=== PATIENT | female | born 1970 | race Caucasian/White ===

== ENCOUNTER 2024-07-14 09:41 | Inpatient (IN) | payer BC, SELFPAY ==
[2024-07-14] VITALS (23 sets, daily range): BP systolic 120–183; BP diastolic 50–116; PULSE 85–116; RESP 20–30; TEMP 36.2–36.6; O2SAT 82–100; BMI 27.9; BMI 29.5
--- NOTE | 2024-07-14 09:50 | PC.NURSE ---
aware of vbg results
--- NOTE | 2024-07-14 09:52 | PC.NURSE ---
I notified Natalie augustin that i sent up a green top for a VBG
[2024-07-14 09:58] LABS: Lactate Venous 1.2 mmol/L (0.4-2.0); VBG Base Excess 8.1 mmol/L (-2.4-2.3); VBG HCO3 34.8 mmol/L (23-30); VBG Oxygen Saturation 72.1 % (50-70); VBG PH 7.28 mmol/L (7.31-7.41); VBG PO2 39.2 mmol/L (28-40); VBG Total CO2 37.1 mmol/L (23-27)
--- NOTE | 2024-07-14 09:58 | ECG_ITS ---
APPROVED REPORT Exam: Resting ECG HR:88 bpm ECG Measurements Heart Rate 88 AXES MO 148 P 86 QRSd 64 QRS 86 QT 342 T 76 QTc 388 Conclusion SINUS RHYTHM LOW QRS VOLTAGE IN PRECORDIAL LEADS [QRS DEFLECTION < 1.0 mV IN CHEST LEADS] BORDERLINE ECG UNCONFIRMED REPORT Electronically signed by : Shaun Montoya, 07/14/2024 15:12:40
--- NOTE | 2024-07-14 10:00 | PC.NURSE ---
per MD no needs to treat patient for sepsis
[2024-07-14 10:03] LABS: VBG PCO2 75.3 mmol/L (35-51)
--- NOTE | 2024-07-14 10:50 | PC.NURSE ---
rounded on patient. states she doesnt need anything
--- NOTE | 2024-07-14 11:03 | XR_ITS ---
PROCEDURE INFORMATION: Exam: XR Chest Exam date and time: 07/14/2024 11:25 AM Age: 53 years old Clinical indication: Dyspnea TECHNIQUE: Imaging protocol: Radiologic exam of the chest. Views: 1 view. COMPARISON: No relevant prior studies available. FINDINGS: Lungs: No evidence of pneumonia or interstitial edema. Pleural spaces: Mild bilateral pleural thickening/small effusions. Heart/Mediastinum: Unremarkable. No cardiomegaly. Bones/joints: Unremarkable. IMPRESSION: 1. No evidence of pneumonia or interstitial edema. 2. Mild bilateral pleural thickening/small effusions.
--- NOTE | 2024-07-14 11:04 | HMH.EDGENADL ---
Discharge Plan Disposition Chief Complaint: Shortness of Breath/Dyspnea Referrals Follow up/Referrals: Precious Hernandez [Primary Care Provider] - See instructions Clinical Impressions Clinical Impression: Acute exacerbation of chronic obstructive airways disease, Acute respiratory failure with hypoxia and hypercarbia Print Language Print Language: Russian Discharge ED Provider: Vannesa Montoya General Adult HPI General Chief complaint: Shortness of Breath/Dyspnea Stated complaint: soa Time Seen by Provider: 07/14/24 10:52 Mode of Arrival: EMS Source of Information: Patient and EMS Limitations: No Limitations Description of Symptoms (Recalled from ER Triage Doc. by RN): pt c/o increasing SOA with very decreased oxygen sats during exertion. pt c/o chest congestion and wheezing. pt has COPD and is on 4LNC at baseline. on arrival pt was 82% on 4LNC @ 0938. pt placed on 10L NR and increased to 95% @0941. pt taken off the NR at 0952 when she was 100% and placed on 6LNC and is maintaining 99%. pt states she has been sick since Monday. pt had 1 duo neb in route that she reports helped minimally. pt denies chest pain, abd pain, any other symptoms. History of Present Illness HPI narrative: Patient is a 53-year-old with a known history of COPD who wears 4 L nasal cannula presents today with increasing shortness of breath tightness wheezing and stating that she cannot do anything without getting severely dyspneic. She states that her oxygen saturations have gotten down into the 70s but are primarily been in the 80s on her 4 L she has been placed herself on 6 L at home. She states she has been trying everything with breathing treatments at home and has not been able to manage her symptoms there. She has been on BiPAP in the hospital before came here today for further management. Denies any fevers or chills body aches etc. Related Data Allergies Allergy/AdvReac Type Severity Reaction Status Date / Time No Known Allergies Allergy Verified 07/14/24 10:02 [facility] Disclaimer: The information contained in this section may have been updated after the patient was seen, as this information can be updated by other users. Social History Smoking Status: Light tobacco smoker alcohol intake: never current occupational status: other Travel in the last 8 weeks: None ROS Obtained: Yes All systems reviewed & no additional complaints except as documented Physical Exam General General appearance: in distress (Sitting forward personally breathing respiratory distress accessory muscle use oxygen saturations in the mid 90s on 6 L nasal cannula) Respiratory Respiratory exam: Present other (As above but with prolonged expiratory phase significant wheezing and tightness in mild distress) Cardiovascular Cardiovascular exam: Present regular rate and normal rhythm Neurological Exam Neurological exam: Present alert Medical Decision Making Medical Records Screening: Per USPSTF and CDC recommendations, given the prevalence of disease in our region, it is our hospital?s policy to screen for HIV and viral Hepatitis for all patients aged 18 and over and those with ongoing risk factors. Misael Inquiry Pt receiving controlled substance: No Vital Signs: 07/14/24 09:39 07/14/24 09:41 07/14/24 09:52 Temperature 97.9 F Temperature Source Oral Pulse Rate Pulse Rate [Left] 106 H Respiratory Rate 30 H 29 H Blood Pressure Blood Pressure [Right Arm] 149/77 H Blood Pressure Mean [Right Arm] 101 Blood Pressure Source [Right Arm] Automatic Cuff Blood Pressure Position [Right Arm] Sitting 02 Sat by Pulse Oximetry 82 L 95 100 Oxygen Delivery Method Nasal Cannula Non-Rebreather Non-Rebreather Oxygen Flow Rate (LPM) 4 10 9 07/14/24 09:55 07/14/24 10:00 07/14/24 10:30 Temperature Temperature Source Pulse Rate 116 H 98 H Pulse Rate [Left] Respiratory Rate 29 H 25 H Blood Pressure 151/79 H 124/73 Blood Pressure [Right Arm] Blood Pressure Mean [Right Arm] Blood Pressure Source [Right Arm] Blood Pressure Position [Right Arm] 02 Sat by Pulse Oximetry 98 95 97 Oxygen Delivery Method Nasal Cannula Nasal Cannula Nasal Cannula Oxygen Flow Rate (LPM) 6 6 07/14/24 10:45 07/14/24 11:00 Temperature Temperature Source Pulse Rate 95 H 100 H Pulse Rate [Left] Respiratory Rate 25 H 30 H Blood Pressure 183/116 H Blood Pressure [Right Arm] Blood Pressure Mean [Right Arm] Blood Pressure Source [Right Arm] Blood Pressure Position [Right Arm] 02 Sat by Pulse Oximetry 99 97 Oxygen Delivery Method Nasal Cannula Room Air Oxygen Flow Rate (LPM) 6 6 Lab Data Lab results reviewed: Yes I reviewed the patient's lab results. Lab Results 07/14/24 09:48: WBC 15.2 H, RBC 4.26, Hgb 12.8, Hct 39.1, MCV 91.8, MCH 30.0, MCHC 32.7, RDW 12.4, Plt Count 474 H, MPV 8.9, Neut % (Auto) 72.7, Lymph % (Auto) 16.7, [place] % (Auto) 6.8, Eos % (Auto) 2.8, Baso % (Auto) 0.7, Neut # (Auto) 11.1 H, Lymph # (Auto) 2.6, [place] # (Auto) 1.0, Eos # (Auto) 0.4, Baso # (Auto) 0.1, Sodium 136, Potassium 3.5, Chloride 91 L, Carbon Dioxide > 40 H*, Anion Gap 8.5, BUN 11, Creatinine 0.60, Estimated Creat Clear 130, Estimated GFR 105, Est GFR ( Amer) 127, Glucose 104 H, Calcium 9.0, Total Bilirubin 0.6, AST 46 H, ALT 31, Alkaline Phosphatase 71, Total Protein 7.3, Albumin 4.3, Globulin 3.0, Albumin/Globulin Ratio 1.4, HCV Ab BRUCE w/Rflx PCR Qn Negative, HIV Ag/Ab Combo Qual Negative 07/14/24 09:52: VBG pH 7.28 L, VBG pCO2 75.3 H, VBG pO2 39.2, VBG HCO3 34.8 H, VBG Total CO2 37.1 H, VBG O2 Saturation 72.1 H, VBG Base Excess 8.1 H, VBG Lactic Acid 1.2 07/14/24 09:48 07/14/24 09:48 Orders (Tests/Meds): ED MEDICATIONS Generic Name Dose Route Start Last Admin Trade Name Freq PRN Reason Stop Dose Admin Sodium Chloride 500 mls @ 999 mls/hr 07/14/24 11:02 07/14/24 11:17 Sod Chlor 0.9% 1000ml Bag IV 07/14/24 11:32 999 mls/hr .Q31M ONE Administration Magnesium Sulfate 2 gm in 50 mls @ 50 mls/hr 07/14/24 11:02 07/14/24 11:17 Magnesium Sulfate 2gm/50ml Premix IV 07/14/24 12:01 50 mls/hr ONCE ONE Administration Ceftriaxone Sodium 1 gm/ 50 mls @ 100 mls/hr 07/14/24 11:02 Sodium Chloride IV 07/14/24 11:31 ONCE ONE Sodium Chloride 10 ml 07/14/24 11:18 Sodium Chloride 0.9% 10ml Vial IV 08/13/24 11:17 NEEDED PRN to Dilute Lorazepam inj Discontinued Medications Generic Name Dose Route Start Last Admin Trade Name Yamilq PRN Reason Stop Dose Admin Albuterol/Ipratropium 3 ml 07/14/24 11:02 07/14/24 11:17 Ipratropium/Albuterol 3 Ml Neb IH 07/14/24 11:03 3 ml ONCE ONE Administration Azithromycin 500 mg/ Sodium 250 mls @ 250 mls/hr 07/14/24 11:02 Chloride IV 07/14/24 11:03 ONCE ONE Lorazepam 0.5 mg 07/14/24 11:18 07/14/24 11:24 Lorazepam 2mg/Ml Vial IV 07/14/24 11:19 0.5 mg ONCE ONE Administration Methylprednisolone Sodium Succinate 125 mg 07/14/24 11:02 07/14/24 11:17 Methylprednisolone Sod Succ 125mg Vial IV 07/14/24 11:03 125 mg ONCE ONE Administration ORDERS Category Date Time Status CXR --portable [XR chest portable] Stat Exams 07/14/24 11:03 Taken BNP [NT Pro Brain Natriuretic Pep.] Stat Lab 07/14/24 09:48 Results CBC w/Auto Diff [Complete Blood Count Auto Diff] Stat Lab 07/14/24 09:48 Received CMP [Comprehensive Metabolic Panel] Stat Lab 07/14/24 09:48 Results HIV Combo Stat Lab 07/14/24 09:48 Completed Hepatitis C Ab Qual. W/ RFX Stat Lab 07/14/24 09:48 Received Rapid PCR Covid and Flu A/B Stat Lab 07/14/24 11:03 Ordered Trop I [Troponin I] Stat Lab 07/14/24 09:48 Results Troponin I Q3H Lab 07/14/24 14:15 Ordered Troponin I Q3H Lab 07/14/24 17:15 Ordered Venous Blood Gas Routine RT 07/14/24 09:52 Completed Medical Decision Narrative: 53-year-old with moderate to severe COPD exacerbation with hypoxic and hypercapnic respiratory failure blood gas was already returned by the time I evaluated this patient. She is acutely hypercarbic pH is less than 7.3. Will place her on BiPAP. Nebs steroids antibiotics magnesium have been administered. Will reassess shortly. Given the severity her symptoms and her inability to manage this at home she will likely need to be admitted until she has a turnaround significantly. Will reassess within an hour. Reassessment 1129 patient started on BiPAP chest x-ray performed which I personally interpreted which shows no evidence of any acute cardiopulmonary emergency specifically no focal consolidation or pneumothorax. Neb steroids antibiotics magnesium have been initiated. Labs are pending but I spoke with hospital medicine who agreed to admit the patient for further evaluation and management. Critical Care Critical Care Time Critical Care Time: Yes Attestation: On 07/14/24, the high probability of a clinically significant, sudden or life threatening deterioration of the following system(s) required my full and direct attention, intervention and personal management. The time I documented below is in addition to time spent performing reported procedures but includes the following listed in this critical care notation. Total Time Total Critical Care Time: 35
--- NOTE | 2024-07-14 11:13 | PC.NURSE ---
pt refusing nasal swab due to nasal sores.
[2024-07-14 11:17] LABS: HIV Combo NEGATIVE (Negative)
[2024-07-14] MEDS: 0.9 % SODIUM CHLORIDE 1000ML 500 ML 999 ML IV (11:17)
[2024-07-14] MEDS: MAGNESIUM SULFATE IN WATER 2 GM/50 ML PIGGYBACK IV (11:17)
[2024-07-14] MEDS: METHYLPREDNISOLONE SOD SUCC 125MG VIAL 125 MG IV (11:17)
[2024-07-14] MEDS: IPRATROPIUM/ALBUTEROL 3 ML NEB IH ×3 (11:17→21:54)
[2024-07-14 11:19] LABS: Basophils # 0.1 K/mm3 (0-0.2); Basophils % 0.7 % (0.1-2.0); Eosinophils # 0.4 K/mm3 (0.0-0.4); Eosinophils % 2.8 % (0.1-12.0); Hematocrit 39.1 % (37.0-47.0); Hemoglobin 12.8 g/dL (12.2-16.2); Lymphocytes # 2.6 K/mm3 (0.7-4.5); Lymphocytes % 16.7 % (10-50); Mean Corpuscular HGB Conc 32.7 g/dL (31.8-35.4); Mean Corpuscular Volume 91.8 fl (81-99); Mean Platelet Volume 8.9 fl (7.4-10.4); Monocytes % 6.8 % (1.7-9.3); Neutrophils # 11.1 K/mm3 (1.8-7.8); Neutrophils % 72.7 % (37.0-80.0); Platelet Count 474 K/mm3 (142-424); Red Blood Count 4.26 M/mm3 (4.20-5.40); Red Cell Distribution Width 12.4 % (11.5-17.5); White Blood Count 15.2 K/mm3 (4.8-10.8)
[2024-07-14 11:20] LABS: Albumin Level 4.3 g/dl (3.5-5.0); Chloride 91 mmol/L (98-107); Potassium 3.5 mmoL/L (3.5-5.1); Sodium 136 mmol/L (136-145)
[2024-07-14 11:23] LABS: Alanine Aminotransferase 31 U/L (12-78); Albumin/Globulin Ratio 1.4 (1.1-1.8); Alkaline Phosphatase 71 U/L (38-126); Aspartate Amino Transferase 46 U/L (14-36); Bilirubin,Total 0.6 mg/dl (0.2-1.3); Blood Urea Nitrogen 11 mg/dl (7-17); Creatinine Clearance Estimated 130 mL/min (50-200); Estimated Glomerular Filt Rate 105 ml/min (>60); GFR (African American) 127 ML/MIN (>60); Total Protein,Serum 7.3 g/dl (6.3-8.2)
[2024-07-14 11:24] LABS: Glucose 104 mg/dl (74-100); MANUAL DIFFERENTIAL MANUAL DIFFERENTIAL (MANUAL DIFF)
[2024-07-14] MEDS: LORazepam 2MG/ML VIAL 0.5 MG IV (11:24)
[2024-07-14 11:26] LABS: Hepatitis C Ab Qual. W/ RFX NEGATIVE (Negative)
[2024-07-14] MEDS: CEFTRIAXONE SODIUM 1 GM in 0.9 % SODIUM CHLORIDE 50 ML IV (11:32)
[2024-07-14 11:35] LABS: Carbon Dioxide 38 mmol/L (22.0-30.0)
[2024-07-14 11:36] LABS: Anion Gap 10.5 mEq/L (5-15); Troponin I < 0.01 ng/ml (0.00-0.034)
[2024-07-14] MEDS: AZITHROMYCIN 500 MG in 0.9 % SODIUM CHLORIDE 250 ML 250 MG IV (11:45)
--- NOTE | 2024-07-14 11:49 | PC.NURSE ---
I rounded on the pt. no new complaints at this time. pt is tolerating the BIPAP well. no needs voiced. call coleman in reach.
--- NOTE | 2024-07-14 12:35 | PC.NURSE ---
I called report to Sri SCHWAB
--- NOTE | 2024-07-14 13:34 | PC.NURSE ---
arrived by stretcher from ED
--- NOTE | 2024-07-14 13:39 | P.HP_ITS ---
History of Present Illness *Admission Date: 07/14/24 *Reason for visit:: Shortness of breath *History of present illness: Violeta Davidson is a 53-year-old female with a medical history of COPD on 4 L baseline, hypertension, anxiety/depression who presents with progressive shortness of breath for 5 days. She states she had been adherent to her medications, including Trelegy and DuoNebs at home, without much alleviation to symptoms. She states she has been admitted in the past for similar symptoms and requiring BiPAP. On my interview, patient seems to have improved significantly since the presentation. Denies chest pain, abdominal pain, fever/chills. Workup in the ED significant for WBC 15.2, VBG showing acute CO2 retention and hypercapnia 7.28 pCO2 75.3, mini respiratory panel negative. CXR did show mild bilateral pleural effusions without other acute abnormalities. She had very tight airways in the ED, given breathing treatments and eventually BiPAP with improvement. Case discussed with ED provider and decision made to admit patient for acute on chronic hypoxic, hypercapnic respiratory failure secondary to COPD exacerbation. [facility] Disclaimer: The information contained in this section may have been updated after the patient was seen, as this information can be updated by other users. Medical History (Updated 07/14/24 @ 15:19 by Jules Mendoza MD) Oxygen dependent Emphysema lung HLD (hyperlipidemia) HTN (hypertension) COPD (chronic obstructive pulmonary disease) Surgical History (Updated 07/14/24 @ 12:09 by Hattie Kovacs RN) Tubal ligation status Social History (Updated 07/14/24 @ 11:29 by Vannesa Montoya MD) Smoking Status: Light tobacco smoker alcohol intake: never current occupational status: other Travel in the last 8 weeks: None Have you lived/traveled outside [place] in past 30 days?: No Contact w/someone who lives/traveled outside US past 30 days?: No Exposure to someone with infectious disease in past 14 days?: No Do you have a fever (greater than 100.4 F or 38 C)?: No Have you tested positive for COVID-19: No Exposed to someone with COVID-19 in past 14 days?: No Do you have a sore throat?: No Do you have a cough?: No Do you have any weakness?: No Do you have any diarrhea?: No Are you experiencing any unusual bleeding?: No Do you have any muscle aches/pain?: No Do you have any abdominal pain?: No Are you experiencing loss of taste or smell?: No Meds Home Medications and Allergies Home Medications ?Medication ?Instructions ?Recorded ?Confirmed ?Type albuterol sulfate 90 mcg/actuation 2 puff inhalation QIDP PRN COPD 07/14/24 07/14/24 History aerosol inhaler aspirin 81 mg tablet,delayed 81 mg PO DAILY 07/14/24 07/14/24 History release cetirizine 10 mg tablet (Zyrtec) 10 mg PO DAILY 07/14/24 07/14/24 History citalopram 20 mg tablet 20 mg PO DAILY 07/14/24 07/14/24 History fluticasone fur. 200 mcg-umeclid 1 inh inhalation DAILY 07/14/24 07/14/24 History 62.5 mcg-vilant 25 mcg inhalat.powder (Trelegy Ellipta) ipratropium 0.5 mg-albuterol 3 mg 3 ml inhalation QID 07/14/24 07/14/24 History (2.5 mg base)/3 mL nebulization soln losartan 50 mg tablet 50 mg PO DAILY 07/14/24 07/14/24 History roflumilast 250 mcg tablet 250 mcg PO DAILY 07/14/24 07/14/24 History simvastatin 20 mg tablet 20 mg PO HS 07/14/24 07/14/24 History triamterene 37.5 1 tab PO DAILY 07/14/24 07/14/24 History mg-hydrochlorothiazide 25 mg tablet New Prescriptions to Start Prescriptions: Allergies Allergy/AdvReac Type Severity Reaction Status Date / Time No Known Allergies Allergy Verified 07/14/24 10:02 Exam Data for Last 24 hours Vital signs and Labs for Last 24 Hours: Temp Pulse Resp BP Pulse Ox O2 Del Method O2 Flow Rate 97.9 F 98 H 23 135/82 100 BiPAP 6 07/14/24 09:39 07/14/24 12:31 07/14/24 12:31 07/14/24 12:31 07/14/24 12:31 07/14/24 12:31 07/14/24 12:00 FiO2 35 07/14/24 11:15 Laboratory Results - last 24 hr 07/14/24 09:48: WBC 15.2 H, RBC 4.26, Hgb 12.8, Hct 39.1, MCV 91.8, MCH 30.0, MCHC 32.7, RDW 12.4, Plt Count 474 H, MPV 8.9, Neut % (Auto) 72.7, Lymph % (Auto) 16.7, [place] % (Auto) 6.8, Eos % (Auto) 2.8, Baso % (Auto) 0.7, Neut # (Auto) 11.1 H, Lymph # (Auto) 2.6, [place] # (Auto) 1.0, Eos # (Auto) 0.4, Baso # (Auto) 0.1, Sodium 136, Potassium 3.5, Chloride 91 L, Carbon Dioxide 38 H, Anion Gap 10.5, BUN 11, Creatinine 0.60, Estimated Creat Clear 130, Estimated GFR 105, Est GFR ( Amer) 127, Glucose 104 H, Calcium 9.0, Total Bilirubin 0.6, AST 46 H, ALT 31, Alkaline Phosphatase 71, Troponin I < 0.01, NT-Pro-B Natriuret Pep 82.0, Total Protein 7.3, Albumin 4.3, Globulin 3.0, Albumin/Globulin Ratio 1.4, HCV Ab BRUCE w/Rflx PCR Qn Negative, HIV Ag/Ab Combo Qual Negative 07/14/24 09:52: VBG pH 7.28 L, VBG pCO2 75.3 H, VBG pO2 39.2, VBG HCO3 34.8 H, VBG Total CO2 37.1 H, VBG O2 Saturation 72.1 H, VBG Base Excess 8.1 H, VBG Lactic Acid 1.2 I & O for Last 24 hours: Intake & Output 07/11/24 07/12/24 07/13/24 07/14/24 23:59 23:59 23:59 23:59 Weight 76.204 kg Constitutional Constitutional: no acute distress *Routine HEENT Exam Head: Present normocephalic Eye: Present EOMI and PERRL ENT: Present mucous membranes moist *Routine Neck Exam Neck: Present supple; Absent lymphadenopathy *Routine Respiratory Exam Respiratory: Present prolonged expiratory phase, wheezes and diminished air movement Comments: Diminished air movement throughout lung [place]. *Routine Cardiovascular Exam Cardiovascular: Present RRR *Routine Abdominal Exam Abdominal: Present soft and normoactive bowel sounds; Absent tenderness *Routine Rectal Exam Rectal:: deferred *Routine Genitalia Exam Genitalia:: deferred *Routine Extremities Exam Extremities: Absent cyanosis, clubbing or edema *Routine Skin Exam Skin: Present warm; Absent rash *Routine Neurological Exam Neurological: Present alert and oriented X3 Assessment and Plan *Assessment and plan (1) Acute respiratory failure with hypoxia and hypercarbia: Status: Acute Category: Medical Code(s): J96.01 - Acute respiratory failure with hypoxia; J96.02 - Acute respiratory failure with hypercapnia (2) COPD (chronic obstructive pulmonary disease): Status: Acute Category: Medical Code(s): J44.9 - Chronic obstructive pulmonary disease, unspecified (3) HTN (hypertension): Status: Acute Category: Medical Code(s): I10 - Essential (primary) hypertension (4) Acute exacerbation of chronic obstructive airways disease: Status: Acute Category: Medical Code(s): J44.1 - Chronic obstructive pulmonary disease with (acute) exacerbation Plan Violeta Davidson is a 53-year-old female with a medical history of COPD on 4 L baseline, CAD s/p stent, hypertension, anxiety/depression who presents with progressive shortness of breath for 5 days. She states she had been adherent to her medications, including Trelegy and DuoNebs at home, without much alleviation to symptoms. She states she has been admitted in the past for similar symptoms and requiring BiPAP. On my interview, patient seems to have improved significantly since the presentation. Denies chest pain, abdominal pain, fever/chills. Workup in the ED significant for WBC 15.2, VBG showing acute CO2 retention and hypercapnia 7.28 pCO2 75.3, mini respiratory panel negative. CXR did show mild bilateral pleural effusions without other acute abnormalities. She had very tight airways in the ED, given breathing treatments and eventually BiPAP with improvement. Case discussed with ED provider and decision made to admit patient for acute on chronic hypoxic, hypercapnic respiratory failure secondary to COPD exacerbation. #Acute on chronic hypercapnic, hypoxic respiratory failure #COPD exacerbation ? Progressive shortness of breath for 5 days, VBG showing acute on chronic hypercapnic respiratory failure. ? Initiated on BiPAP 05/05 with DuoNebs in the ED with improvement of symptoms. Repeat VBG improving. ? Currently weaned to 4 L nasal cannula, baseline. May need to restart BiPAP later in the afternoon. ? Started DuoNebs every 6 hours, Pulmicort twice daily. ? Prednisone 40 mg day 2/5 starting tomorrow. IV Solu-Medrol given in the ED. ? Continue azithromycin day 1/. ? Continue home Roflumilast, hold Trelegy for now. ? Pulmonology consulted, pending further recommendations. #Hypertension ? Resume home losartan, triamterene, hydrochlorothiazide. #Anxiety/depression ? Resume home citalopram 20 mg. #CAD s/p stent 2017 ? Resume home aspirin, statin. #Dry nose ? Plan to discharge on triamcinolone nasal spray, discontinue Flonase. Full code DVT prophylaxis: Lovenox 40 mg
[2024-07-14 14:10] LABS: Lactate Venous 1.1 mmol/L (0.4-2.0); VBG Base Excess 5.9 mmol/L (-2.4-2.3); VBG HCO3 32.1 mmol/L (23-30); VBG Oxygen Saturation 77.1 % (50-70); VBG PH 7.32 mmol/L (7.31-7.41); VBG PO2 42.2 mmol/L (28-40)
[2024-07-14 14:12] LABS: VBG PCO2 63.8 mmol/L (35-51)
[2024-07-14 14:22] LABS: Lymphocytes % 13 % (10-50); Monocytes % 7 % (2-9); Neutrophils % 80 % (42-76); Platelet Estimate Normal; RBC Morphology Normal; Total Cells Counted 100
[2024-07-14 14:31] LABS: Coronavirus 19, PCR Not Detected (NotDetected); Influenza A, PCR Not Detected (NotDetected); Influenza B, PCR Not Detected (NotDetected)
[2024-07-14 15:11] LABS: Troponin I < 0.01 ng/ml (0.00-0.034)
--- NOTE | 2024-07-14 18:06 | PC.NURSE ---
Pt has done fair since arriving to the floor. she has been on the bipap periodically. SHe has saturated well on her home O2 if 4L while not on BiPAP. SHe did get very short of air while walking back from the bathroom this afternoon and was placed back on bipap for about 45 minutes. her O2 sat was 91% on 4L while standing in the bathroom at the sink. BSC taken into room due to pt's sob with walking to the bathroom. Pt stated that her breathing has been like that with ambulation since about monday. VSS.
[2024-07-14 18:14] LABS: Troponin I < 0.01 ng/ml (0.00-0.034)
[2024-07-14] MEDS: BUDESONIDE 0.5MG/2ML NEB 0.5 MG IH (18:38)
[2024-07-14] MEDS: PRAVASTATIN 40MG TAB 40 MG PO (20:17)
[2024-07-14] MEDS: hydrOXYzine pamoate 25MG CAPSULE 25 MG PO (20:17)
[2024-07-14] MEDS: TRAZODONE 50MG TABLET 25 MG PO (23:40)
[2024-07-15] VITALS (12 sets, daily range): BP systolic 91–143; BP diastolic 50–85; PULSE 75–110; RESP 16–24; TEMP 36.3–36.6; O2SAT 91–95
--- NOTE | 2024-07-15 04:59 | PC.NURSE ---
Alert and oriented. Bedside commode, when going to commode patient gets exerted and O2 drops on 4L NC. Recovers well once back in bed. BiPAP placed on patient, made patient feel suffocated, Enrique aware, gave a break from BiPAP and then gave prn med for rest. Patient has rested well since midnight. O2 started to drop 0400, sustaining 88%, respiratory to bedside to adjust bipap settings. Lung sounds wheezing. No other complaints from patient. Call light in reach.
[2024-07-15] MEDS: IPRATROPIUM/ALBUTEROL 3 ML NEB IH ×2 (06:19→10:19)
[2024-07-15] MEDS: BUDESONIDE 0.5MG/2ML NEB 0.5 MG IH (06:19)
[2024-07-15 07:00] LABS: ABG Base Excess 4.2 mmol/L (-2.4-2.3); ABG HCO3 29.4 mmhg (22.0-26.0); ABG Oxygen Saturation 91 % (90-100); ABG PH 7.38 mmol/L (7.35-7.45); ABG TCO2 30.9 mmhg (23-27)
[2024-07-15 07:05] LABS: ABG PCO2 50.9 mmhg (35.0-45.0)
[2024-07-15 07:06] LABS: Basophils % 0.2 % (0.1-2.0); Eosinophils % 0.1 % (0.1-12.0); Hematocrit 37.5 % (37.0-47.0); Hemoglobin 12.6 g/dL (12.2-16.2); Lymphocytes # 1.6 K/mm3 (0.7-4.5); Lymphocytes % 11.5 % (10-50); Mean Corpuscular HGB Conc 33.6 g/dL (31.8-35.4); Mean Corpuscular Volume 89.3 fl (81-99); Mean Platelet Volume 8.7 fl (7.4-10.4); Monocytes # 0.9 K/mm3 (0.1-1.0); Monocytes % 6.1 % (1.7-9.3); Neutrophils # 11.3 K/mm3 (1.8-7.8); Neutrophils % 81.6 % (37.0-80.0); Platelet Count 445 K/mm3 (142-424); Red Cell Distribution Width 12.3 % (11.5-17.5); White Blood Count 13.9 K/mm3 (4.8-10.8)
[2024-07-15 07:07] LABS: Albumin Level 4.3 g/dl (3.5-5.0); Chloride 94 mmol/L (98-107); Potassium 3.8 mmoL/L (3.5-5.1); Sodium 137 mmol/L (136-145)
[2024-07-15 07:07] LABS: Allen's Test Acceptable; Oxygen 35% %; Source Right Radial; Vent Rate 18
[2024-07-15 07:10] LABS: Alanine Aminotransferase 29 U/L (12-78); Albumin/Globulin Ratio 1.5 (1.1-1.8); Alkaline Phosphatase 65 U/L (38-126); Anion Gap 8.8 mEq/L (5-15); Aspartate Amino Transferase 38 U/L (14-36); Bilirubin,Total 0.4 mg/dl (0.2-1.3); Blood Urea Nitrogen 14 mg/dl (7-17); Carbon Dioxide 38 mmol/L (22.0-30.0); Creatinine Clearance Estimated 119 mL/min (50-200); Estimated Glomerular Filt Rate 105 ml/min (>60); GFR (African American) 127 ML/MIN (>60); Globulin 2.9 g/dL (1.3-3.2); Total Protein,Serum 7.2 g/dl (6.3-8.2)
[2024-07-15 07:11] LABS: Calcium 9.2 mg/dl (8.4-10.2); Glucose 106 mg/dl (74-100); Magnesium 1.8 mg/dl (1.6-2.3)
[2024-07-15] MEDS: LORATADINE 10MG TABLET 10 MG PO (08:54)
[2024-07-15] MEDS: predniSONE 20MG TAB 40 MG PO (08:54)
[2024-07-15] MEDS: HCTZ 25MG/TRIAMTERENE 37.5MG TABLET 1 EACH PO (08:54)
[2024-07-15] MEDS: CITALOPRAM 20MG TABLET 20 MG PO (08:54)
[2024-07-15] MEDS: ASPIRIN EC 81MG TABLET 81 MG PO (08:54)
[2024-07-15] MEDS: IRBESARTAN 75MG TABLET 75 MG PO (08:54)
[2024-07-15] MEDS: AZITHROMYCIN 500 MG in 0.9 % SODIUM CHLORIDE 250 ML 250 MG IV (08:55)
[2024-07-15] MEDS: ROFLUMILAST 500 MCG 250 MCG PO (08:55)
[2024-07-15] MEDS: MAGNESIUM SULFATE IN WATER 2 GM/50 ML PIGGYBACK IV (08:55)
[2024-07-15] MEDS: ENOXAPARIN 40MG/0.4ML SYRINGE 40 MG SUBCUT (08:56)
--- NOTE | 2024-07-15 10:21 | CA_ITS ---
APPROVED REPORT EXAM: Comprehensive 2D, Doppler, and color-flow Echocardiogram House Nurse: Kimberly Stephens CRT Ht: 4 ft 11 in Wt: 153lbs BSA: 1.65 BP: 138/82 mmHg Indications: COPD, Hyperlipidemia, Hypertension/HDD 2D Dimensions LA Volume 30.60 mL LA Volume Index 18.10 mL/m2 (M/F) 16-34 EF AP4 81.80 % GL Strain -22.2 % M-Mode Dimensions RVDd 3.29 cm (0.9-2.6) LA Diam 2.83 cm (1.9-4.0) LVDd 2.85 cm (3.5-5.7) LVDs 1.58 cm (3.5-5.7) IVSd 1.31 cm (0.6-1.1) PWd 1.01 cm (0.6-1.1) EF (Teich) 77.70% FS 44.60% EDV (Teich) 30.90 mL TAPSE 1.90 (<1.7) ESV (Teich) 6.90 mL LV Diastology E Decel Time 150 (160-240 msec) E/A Ratio 0.76 MED A' 6.40 cm/s LAT A' 10.20 cm/s Aortic Valve AO Peak GR. 9.50 mmHg Mitral Valve MV E Max Ruben. 87.0 (40-130 cm/s) MV A Velocity 115.0 (40-130 cm/s) E/A Ratio 0.76 MV PHT 44.0 ms Tricuspid Valve TR P. Velocity 192.00 cm/s RAP Estimate 10.00 mmHg RVSP 24.70 mmHg Left Ventricle The left ventricle is normal size. The left ventricular systolic function is normal. The left ventricular ejection fraction is within the normal range. There is increased LV wall thickness. Diastolic function is indeterminate. There is normal LV segmental wall motion. LVEF is 60%. Right Ventricle Right ventricle is mild to moderately dilated. The right ventricular systolic function is normal. Atria The left atrium size is normal. Right atrium is mildly dilated. There is no Doppler evidence of interatrial shunt. Aortic Valve The aortic valve opens well. There is no aortic valvular stenosis. No aortic regurgitation is present. Mitral Valve The mitral valve is normal in structure. No evidence of mitral valve stenosis. Trace mitral regurgitation. Tricuspid Valve Tricuspid valve is grossly normal in structure and function. Trace tricuspid regurgitation. There is insufficient TR jet to estimate RVSP. Pulmonic Valve The pulmonary valve is normal in structure. Trace pulmonic regurgitation. Great Vessels The aortic root is not well-visualized. The IVC is not well-visualized. Pericardium There is no pericardial effusion. Other Information Study Quality: Technically Difficult Conclusion Technically difficult study due to poor acoustic windows. Normal LV systolic function. Mild to moderate RV dilation with normal RV function. No significant valvular stenosis or regurgitation. Electronically signed by : Anayeli Frankel MD 07/16/2024 11:14:51
--- NOTE | 2024-07-15 14:07 | P.DS_ITS ---
General Admission date:: 07/14/24 HPI HPI HPI: Violeta Davidson is a 53-year-old female with a medical history of COPD on 4 L baseline, hypertension, anxiety/depression who presents with progressive shortness of breath for 5 days. She states she had been adherent to her medications, including Trelegy and DuoNebs at home, without much alleviation to symptoms. She states she has been admitted in the past for similar symptoms and requiring BiPAP. On my interview, patient seems to have improved significantly since the presentation. Denies chest pain, abdominal pain, fever/chills. Workup in the ED significant for WBC 15.2, VBG showing acute CO2 retention and hypercapnia 7.28 pCO2 75.3, mini respiratory panel negative. CXR did show mild bilateral pleural effusions without other acute abnormalities. She had very tight airways in the ED, given breathing treatments and eventually BiPAP with improvement. Case discussed with ED provider and decision made to admit patient for acute on chronic hypoxic, hypercapnic respiratory failure secondary to COPD exacerbation. Hospital Course Hospital Course Hospital Course: Violeta Davidson is a 53-year-old female with a medical history of COPD on 4 L baseline, CAD s/p stent, hypertension, anxiety/depression who presents with progressive shortness of breath for 5 days. She states she had been adherent to her medications, including Trelegy and DuoNebs at home, without much alleviation to symptoms. She states she has been admitted in the past for similar symptoms and requiring BiPAP. On my interview, patient seems to have improved significantly since the presentation. Denies chest pain, abdominal pain, fever/chills. Workup in the ED significant for WBC 15.2, VBG showing acute CO2 retention and hypercapnia 7.28 pCO2 75.3, mini respiratory panel negative. CXR did show mild bilateral pleural effusions without other acute abnormalities. She had very tight airways in the ED, given breathing treatments and eventually BiPAP with improvement. Case discussed with ED provider and decision made to admit patient for acute on chronic hypoxic, hypercapnic respiratory failure secondary to COPD exacerbation. #Acute on chronic hypercapnic, hypoxic respiratory failure #COPD exacerbation ? Progressive shortness of breath for 5 days, VBG showing acute on chronic hypercapnic respiratory failure. ? Clinically improved with BiPAP, DuoNebs, Pulmicort, steroids, azithromycin. ? Pulmonology recommended continuing Trelegy 100 and DuoNebs every 4 hours as needed. ? Would benefit from outpatient sleep study, as patient endorses nighttime desaturations. ? Discharged with prednisone and doxycycline for 3 more days. Continue home Roflumilast, Trelegy 100. ? Will follow-up with pulmonology within 2 weeks. #Hypertension ? Resume home losartan, triamterene, hydrochlorothiazide. #Anxiety/depression #Insomnia ? Resume home citalopram 20 mg. ? Started hydroxyzine 25 mg as needed for anxiety, trazodone 25 to 50 mg nightly as needed for sleep. #CAD s/p stent 2018 ? Resume home aspirin, statin. # Allergic rhinitis ? Patient endorses dry nose especially with Flonase. Prescribed Nasacort/triamcinolone spray. Total time spent on discharge: 32 minutes on chart review, counseling, documentation, and direct care with patient. Exam Data for Last 24 hours Vital signs and Labs for Last 24 Hours: Temp Pulse Resp BP Pulse Ox O2 Del Method O2 Flow Rate 97.8 F 110 H 19 100/55 L 95 Nasal Cannula 4 07/15/24 12:00 07/15/24 12:00 07/15/24 12:00 07/15/24 12:00 07/15/24 12:00 07/15/24 13:00 07/15/24 13:00 FiO2 35 07/15/24 03:12 Laboratory Results - last 24 hr 07/14/24 09:48: Total Counted 100, Neutrophils % (Manual) 80 H, Lymphocytes % (Manual) 13, Monocytes % (Manual) 7, Platelet Estimate Normal, RBC Morphology Normal 07/14/24 14:00: VBG pH 7.32, VBG pCO2 63.8 H, VBG pO2 42.2 H, VBG HCO3 32.1 H, VBG Total CO2 34.0 H, VBG O2 Saturation 77.1 H, VBG Base Excess 5.9 H, VBG Lactic Acid 1.1 07/14/24 14:15: Troponin I < 0.01 07/14/24 14:25: SARS-CoV-2 (PCR) Not detected, Influenza A Untype (PCR) Not detected, Influenza Type B (PCR) Not detected 07/14/24 17:15: Troponin I < 0.01 07/15/24 06:00: Specimen Source Right radial, O2 % 35%, ABG pH 7.38, ABG pCO2 50.9 H, ABG pO2 60.0 L, ABG HCO3 29.4 H, ABG Total CO2 30.9 H, ABG O2 Saturation 91, ABG Base Excess 4.2 H, Marcus Test Acceptable, Vent Rate 18, PEEP Bipap 12/6 07/15/24 06:36: WBC 13.9 H, RBC 4.20, Hgb 12.6, Hct 37.5, MCV 89.3, MCH 30.0, MCHC 33.6, RDW 12.3, Plt Count 445 H, MPV 8.7, Neut % (Auto) 81.6 H, Lymph % (Auto) 11.5, [place] % (Auto) 6.1, Eos % (Auto) 0.1, Baso % (Auto) 0.2, Neut # (Auto) 11.3 H, Lymph # (Auto) 1.6, [place] # (Auto) 0.9, Eos # (Auto) 0.0, Baso # (Auto) 0.0, Sodium 137, Potassium 3.8, Chloride 94 L, Carbon Dioxide 38 H, Anion Gap 8.8, BUN 14 D, Creatinine 0.60, Estimated Creat Clear 119, Estimated GFR 105, Est GFR ( Amer) 127, Glucose 106 H, Calcium 9.2, Magnesium 1.8, Total Bilirubin 0.4, AST 38 H, ALT 29, Alkaline Phosphatase 65, Total Protein 7.2, Albumin 4.3, Globulin 2.9, Albumin/Globulin Ratio 1.5 I & O for Last 24 hours: Intake & Output 07/12/24 07/13/24 07/14/24 07/15/24 23:59 23:59 23:59 23:59 Intake Total 200 / 500 1080 / 1080 Output Total 0 / 0 0 / 0 Balance 200 / 500 1080 / 1080 Weight 68.549 kg 69.4 kg Microbiology Reports for the Last 24 Hours: Microbiology 07/14/24 22:05 Sputum - Expectorated Sputum Gram Stain - Final Constitutional Constitutional: no acute distress *Routine HEENT Exam Head: Present normocephalic Eye: Present EOMI and PERRL ENT: Present mucous membranes moist *Routine Neck Exam Neck: Present supple; Absent lymphadenopathy *Routine Respiratory Exam Respiratory: Absent CTA bilaterally Comments: Mild diffuse wheezing *Routine Cardiovascular Exam Cardiovascular: Present RRR *Routine Abdominal Exam Abdominal: Present soft and normoactive bowel sounds; Absent tenderness *Routine Extremities Exam Extremities: Absent cyanosis, clubbing or edema *Routine Skin Exam Skin: Present warm; Absent rash *Routine Neurological Exam Neurological: Present alert and oriented X3 Results Data Completed and Pending Labs on day of discharge: Labs from last 24 hours 07/15/24 07/15/24 07/14/24 06:36 06:00 17:15 WBC 13.9 H RBC 4.20 Hgb 12.6 Hct 37.5 MCV 89.3 MCH 30.0 MCHC 33.6 RDW 12.3 Plt Count 445 H MPV 8.7 Neut % (Auto) 81.6 H Lymph % (Auto) 11.5 [place] % (Auto) 6.1 Eos % (Auto) 0.1 Baso % (Auto) 0.2 Neut # (Auto) 11.3 H Lymph # (Auto) 1.6 [place] # (Auto) 0.9 Eos # (Auto) 0.0 Baso # (Auto) 0.0 Total Counted Neutrophils % (Manual) Lymphocytes % (Manual) Monocytes % (Manual) Platelet Estimate RBC Morphology Specimen Source Right radial O2 % 35% ABG pH 7.38 ABG pCO2 50.9 H ABG pO2 60.0 L ABG HCO3 29.4 H ABG Total CO2 30.9 H ABG O2 Saturation 91 ABG Base Excess 4.2 H Marcus Test Acceptable VBG pH VBG pCO2 VBG pO2 VBG HCO3 VBG Total CO2 VBG O2 Saturation VBG Base Excess VBG Lactic Acid Vent Rate 18 PEEP Bipap 12/6 Sodium 137 Potassium 3.8 Chloride 94 L Carbon Dioxide 38 H Anion Gap 8.8 BUN 14 D Creatinine 0.60 Estimated Creat Clear 119 Estimated GFR 105 Est GFR ( Amer) 127 Glucose 106 H Calcium 9.2 Magnesium 1.8 Total Bilirubin 0.4 AST 38 H ALT 29 Alkaline Phosphatase 65 Troponin I < 0.01 Total Protein 7.2 Albumin 4.3 Globulin 2.9 Albumin/Globulin Ratio 1.5 SARS-CoV-2 (PCR) Influenza A Untype (PCR) Influenza Type B (PCR) 07/14/24 07/14/24 07/14/24 14:25 14:15 14:00 WBC RBC Hgb Hct MCV MCH MCHC RDW Plt Count MPV Neut % (Auto) Lymph % (Auto) [place] % (Auto) Eos % (Auto) Baso % (Auto) Neut # (Auto) Lymph # (Auto) [place] # (Auto) Eos # (Auto) Baso # (Auto) Total Counted Neutrophils % (Manual) Lymphocytes % (Manual) Monocytes % (Manual) Platelet Estimate RBC Morphology Specimen Source O2 % ABG pH ABG pCO2 ABG pO2 ABG HCO3 ABG Total CO2 ABG O2 Saturation ABG Base Excess Marcus Test VBG pH 7.32 VBG pCO2 63.8 H VBG pO2 42.2 H VBG HCO3 32.1 H VBG Total CO2 34.0 H VBG O2 Saturation 77.1 H VBG Base Excess 5.9 H VBG Lactic Acid 1.1 Vent Rate PEEP Sodium Potassium Chloride Carbon Dioxide Anion Gap BUN Creatinine Estimated Creat Clear Estimated GFR Est GFR ( Amer) Glucose Calcium Magnesium Total Bilirubin AST ALT Alkaline Phosphatase Troponin I < 0.01 Total Protein Albumin Globulin Albumin/Globulin Ratio SARS-CoV-2 (PCR) Not detected Influenza A Untype (PCR) Not detected Influenza Type B (PCR) Not detected 07/14/24 09:48 WBC RBC Hgb Hct MCV MCH MCHC RDW Plt Count MPV Neut % (Auto) Lymph % (Auto) [place] % (Auto) Eos % (Auto) Baso % (Auto) Neut # (Auto) Lymph # (Auto) [place] # (Auto) Eos # (Auto) Baso # (Auto) Total Counted 100 Neutrophils % (Manual) 80 H Lymphocytes % (Manual) 13 Monocytes % (Manual) 7 Platelet Estimate Normal RBC Morphology Normal Specimen Source O2 % ABG pH ABG pCO2 ABG pO2 ABG HCO3 ABG Total CO2 ABG O2 Saturation ABG Base Excess Marcus Test VBG pH VBG pCO2 VBG pO2 VBG HCO3 VBG Total CO2 VBG O2 Saturation VBG Base Excess VBG Lactic Acid Vent Rate PEEP Sodium Potassium Chloride Carbon Dioxide Anion Gap BUN Creatinine Estimated Creat Clear Estimated GFR Est GFR ( Amer) Glucose Calcium Magnesium Total Bilirubin AST ALT Alkaline Phosphatase Troponin I Total Protein Albumin Globulin Albumin/Globulin Ratio SARS-CoV-2 (PCR) Influenza A Untype (PCR) Influenza Type B (PCR) DS: Diagnosis Discharge Diagnosis (1) Acute respiratory failure with hypoxia and hypercarbia: Status: Acute Code(s): J96.01 - Acute respiratory failure with hypoxia; J96.02 - Acute respiratory failure with hypercapnia (2) COPD (chronic obstructive pulmonary disease): Status: Acute Code(s): J44.9 - Chronic obstructive pulmonary disease, unspecified (3) HTN (hypertension): Status: Acute Code(s): I10 - Essential (primary) hypertension (4) Acute exacerbation of chronic obstructive airways disease: Status: Acute Code(s): J44.1 - Chronic obstructive pulmonary disease with (acute) exacerbation Meds Home Medications and Allergies Home Medications ?Medication ?Instructions ?Recorded ?Confirmed ?Type albuterol sulfate 90 mcg/actuation 2 puff inhalation QIDP PRN COPD 07/14/24 07/14/24 History aerosol inhaler aspirin 81 mg tablet,delayed 81 mg PO DAILY 07/14/24 07/14/24 History release cetirizine 10 mg tablet (Zyrtec) 10 mg PO DAILY 07/14/24 07/14/24 History citalopram 20 mg tablet 20 mg PO DAILY 07/14/24 07/14/24 History fluticasone fur. 200 mcg-umeclid 1 inh inhalation DAILY 07/14/24 07/14/24 History 62.5 mcg-vilant 25 mcg inhalat.powder (Trelegy Ellipta) fluticasone propionate 50 50 mcg intranasal DAILY 07/14/24 07/14/24 History mcg/actuation nasal spray,suspension (Flonase Allergy Relief) losartan 50 mg tablet 50 mg PO DAILY 07/14/24 07/14/24 History roflumilast 250 mcg tablet 250 mcg PO DAILY 07/14/24 07/14/24 History simvastatin 20 mg tablet 20 mg PO HS 07/14/24 07/14/24 History triamterene 37.5 1 tab PO DAILY 07/14/24 07/14/24 History mg-hydrochlorothiazide 25 mg tablet doxycycline monohydrate 100 mg 100 mg PO BID #60 caps 07/15/24 Rx capsule hydroxyzine pamoate 25 mg capsule 25 mg PO Q6HP PRN Itching 30 days 07/15/24 Rx #30 caps ipratropium 0.5 mg-albuterol 3 mg 3 ml inhalation QID PRN shortness 07/15/24 07/14/24 Rx (2.5 mg base)/3 mL nebulization of breath or wheezing 30 days #0 mL soln prednisone 20 mg tablet 40 mg (2 x 20 mg) PO DAILY 3 days 07/15/24 Rx #6 tabs trazodone 50 mg tablet 25 mg (1/2 x 50 mg) PO HSP PRN 07/15/24 Rx Insomnia 30 days #30 tabs triamcinolone acetonide 55 mcg 2 spray intranasal DAILY #16.9 mL 07/15/24 Rx nasal spray aerosol (Nasacort) New Prescriptions to Start Prescriptions: doxycycline monohydrate Kelly,Jules hydroxyzine pamoate Kelly,Jules prednisone Kelly,Jules trazodone Kelly,Jules triamcinolone acetonide [Nasacort] Jules Mendoza Allergies Allergy/AdvReac Type Severity Reaction Status Date / Time No Known Allergies Allergy Verified 07/14/24 10:02 Discharge Plan Disposition Patient Disposition: Home, Self-Care Condition: Fair Discharge Order Discharge Orders: Discharge Order (Routine); Ordered 07/15/24 Ordered By: Jules Mendoza Follow up Plan Follow up with: Precious Hernandez [Primary Care Provider] - 07/19/24 2:00 pm Angelo Martínez MD [Physician] - 08/13/24 1:00 pm Prescriptions/Medication Reconciliation: New prednisone 20 mg Tablet 40 mg PO DAILY 3 Days Qty: 6 0RF doxycycline monohydrate 100 mg capsule 100 mg PO BID Qty: 60 0RF triamcinolone acetonide [Nasacort] 55 mcg aerosol,spray 2 spray intranasal DAILY Qty: 16.9 0RF Rx Instructions: administer into each nostril trazodone 50 mg Tablet 25 mg PO HSP PRN (Reason: Insomnia) 30 Days Qty: 30 0RF hydroxyzine pamoate 25 mg Capsule 25 mg PO Q6HP PRN (Reason: Itching) 30 Days Qty: 30 0RF Continued losartan 50 mg tablet 50 mg PO DAILY Patient Comments: TAKE 1 TABLET BY MOUTH ONCE DAILY. citalopram 20 mg tablet 20 mg PO DAILY Patient Comments: TAKE 1 TABLET BY MOUTH ONCE DAILY. simvastatin 20 mg tablet 20 mg PO HS Patient Comments: TAKE 1 TABLET BY MOUTH ONCE DAILY. triamterene-hydrochlorothiazid 37.5-25 mg tablet 1 tab PO DAILY Patient Comments: TAKE 1 TABLET BY MOUTH ONCE DAILY. albuterol sulfate 90 mcg/actuation HFA aerosol inhaler 2 puff INHALATION QIDP PRN (Reason: COPD) Patient Comments: INHALE 2 PUFFS BY MOUTH 4 TIMES A DAILY NEEDED. roflumilast 250 mcg tablet 250 mcg PO DAILY Patient Comments: TAKE 1 TABLET BY MOUTH DAILY. Trelegy Ellipta 200-62.5-25 mcg blister with device 1 inh INHALATION DAILY Patient Comments: INHALE ONE PUFF ONCE A DAY cetirizine [Zyrtec] 10 mg Tablet 10 mg PO DAILY aspirin 81 mg Tablet,Delayed Release (Dr/Ec) 81 mg PO DAILY fluticasone propionate [Flonase Allergy Relief] 50 mcg/actuation [place],Suspension 50 mcg INTRANASAL DAILY Changed ipratropium-albuterol 0.5 mg-3 mg(2.5 mg base)/3 mL solution for nebulization 3 ml INHALATION QID PRN (Reason: shortness of breath or wheezing) 30 Days Qty: 0 0RF Patient Comments: INHALE THE CONTENTS OF 1 NEB PER NEBULIZER 4 TIMES DAILY. Problem Reconciliation Problems Reviewed?: Yes Patient Discharge Instructions Patient Instructions: Chronic Obstructive Pulmonary Disease, DI for Chronic Obstructive Pulmonary Disease Print Language: French Providers Primary Care Provider: Precious Hernandez Admit Provider: Jules Mendoza Attending Provider: Jules Mendoza
--- NOTE | 2024-07-15 14:09 | P.CONS_ITS ---
History of Present Illness History of present illness: Ms. Davidson is a 53-year-old female current smoker greater than [id number] smoking history has now cut down to half pack a day from 1 pack a day Diagnosed with COPD and Trelegy 100 Inhaler, Chronic Hypoxic Respiratory Failure on 4 L Nasal Oxygen Supplementation Presented to the ER with Worsening Respiratory Distress Found to Be in Hypoxic Hypercarbic Respiratory Failure Needing Noninvasive Ventilator Therapy and Pulmonary Was Called for Further Evaluation and Management. Patient admits frequent exacerbations, 2-3 times per year, most recent exacerbation December 2023. Symptoms worse on hot humid months PFSH [facility] Disclaimer: The information contained in this section may have been updated after the patient was seen, as this information can be updated by other users. Medical History (Updated 07/14/24 @ 15:19 by Jules Mendoza MD) Oxygen dependent Emphysema lung HLD (hyperlipidemia) HTN (hypertension) COPD (chronic obstructive pulmonary disease) Surgical History (Updated 07/14/24 @ 12:09 by Hattie Kovacs RN) Tubal ligation status Social History (Updated 07/14/24 @ 11:29 by Vannesa Montoya MD) Smoking Status: Light tobacco smoker alcohol intake: never current occupational status: other Travel in the last 8 weeks: None Have you lived/traveled outside [place] in past 30 days?: No Contact w/someone who lives/traveled outside [place] past 30 days?: No Exposure to someone with infectious disease in past 14 days?: No Do you have a fever (greater than 100.4 F or 38 C)?: No Have you tested positive for COVID-19: No Exposed to someone with COVID-19 in past 14 days?: No Do you have a sore throat?: No Do you have a cough?: No Do you have any weakness?: No Do you have any diarrhea?: No Are you experiencing any unusual bleeding?: No Do you have any muscle aches/pain?: No Do you have any abdominal pain?: No Are you experiencing loss of taste or smell?: No Review of Systems Constitutional Constitutional: Reports anorexia, Reports body ache(s), Reports fatigue and Reports snoring Eyes Eyes: Denies eye discharge, Denies dry eyes, Denies irritation and Denies itchy eyes ENT Ears, Nose, Mouth, and Throat: Denies epistaxis, Denies facial pain, Denies lip swelling and Denies throat swelling *Cardiovascular Cardiovascular: Reports dyspnea and Reports dyspnea on exertion *Respiratory Respiratory: Denies change in phlegm color, Reports chest congestion, Reports cough, Reports dyspnea, Reports dyspnea on exertion, Reports excessive phlegm production, Denies hemoptysis, Denies pain on inspiration, Denies pain with cough, Reports snoring and Reports wheezing *Gastrointestinal Gastrointestinal: Denies abdominal pain, Denies belching and Denies cramping *Musculoskeletal Musculoskeletal: Reports back pain, Reports myalgias and Reports other (No small joint swelling or Pain) Psychiatric Psychiatric: Denies homicidal ideation and Denies suicidal ideation Endocrine Endocrine: Reports fatigue and Denies heat intolerance Hematologic/Lymphatic Hematologic/Lymphatic: Denies easy bleeding and Denies lymphadenopathy Allergic/Immunologic Allergic/Immunologic: Denies itchy eyes, Denies lip swelling, Denies throat swelling and Reports wheezing Pulmonology Exam Inpatient Vital signs and Labs for Last 24 Hours: Temp Pulse Resp BP Pulse Ox O2 Del Method O2 Flow Rate 97.8 F 110 H 19 100/55 L 95 Nasal Cannula 4 07/15/24 12:00 07/15/24 12:00 07/15/24 12:00 07/15/24 12:00 07/15/24 12:00 07/15/24 13:00 07/15/24 13:00 FiO2 35 07/15/24 03:12 Laboratory Results - last 24 hr 07/14/24 09:48: Total Counted 100, Neutrophils % (Manual) 80 H, Lymphocytes % (Manual) 13, Monocytes % (Manual) 7, Platelet Estimate Normal, RBC Morphology Normal 07/14/24 14:00: VBG pH 7.32, VBG pCO2 63.8 H, VBG pO2 42.2 H, VBG HCO3 32.1 H, V BG Total CO2 34.0 H, VBG O2 Saturation 77.1 H, VBG Base Excess 5.9 H, VBG Lactic Acid 1.1 07/14/24 14:15: Troponin I < 0.01 07/14/24 14:25: SARS-CoV-2 (PCR) Not detected, Influenza A Untype (PCR) Not detected, Influenza Type B (PCR) Not detected 07/14/24 17:15: Troponin I < 0.01 07/15/24 06:00: Specimen Source Right radial, O2 % 35%, ABG pH 7.38, ABG pCO2 50.9 H, ABG pO2 60.0 L, ABG HCO3 29.4 H, ABG Total CO2 30.9 H, ABG O2 Saturation 91, ABG Base Excess 4.2 H, Marcus Test Acceptable, Vent Rate 18, PEEP Bipap 12/6 07/15/24 06:36: WBC 13.9 H, RBC 4.20, Hgb 12.6, Hct 37.5, MCV 89.3, MCH 30.0, MCHC 33.6, RDW 12.3, Plt Count 445 H, MPV 8.7, Neut % (Auto) 81.6 H, Lymph % (Auto) 11.5, [place] % (Auto) 6.1, Eos % (Auto) 0.1, Baso % (Auto) 0.2, Neut # (Auto) 11.3 H, Lymph # (Auto) 1.6, [place] # (Auto) 0.9, Eos # (Auto) 0.0, Baso # (Auto) 0.0, Sodium 137, Potassium 3.8, Chloride 94 L, Carbon Dioxide 38 H, Anion Gap 8.8, BUN 14 D, Creatinine 0.60, Estimated Creat Clear 119, Estimated GFR 105, Est GFR ( Amer) 127, Glucose 106 H, Calcium 9.2, Magnesium 1.8, Total Bilirubin 0.4, AST 38 H, ALT 29, Alkaline Phosphatase 65, Total Protein 7.2, Albumin 4.3, Globulin 2.9, Albumin/Globulin Ratio 1.5 I & O for Labs for Last 24 Hours: Intake & Output 07/12/24 07/13/24 07/14/24 07/15/24 23:59 23:59 23:59 23:59 Intake Total 200 / 500 1080 / 1080 Output Total 0 / 0 0 / 0 Balance 200 / 500 1080 / 1080 Weight 151 lb 2 oz 153 lb Microbiology Reports for the Last 24 Hours: Microbiology 07/14/24 22:05 Sputum - Expectorated Sputum Gram Stain - Final Constitutional: Present moderate distress Head: Present normocephalic and atraumatic ENT: Present normal exam, normal oropharynx and mucous membranes moist Neck: Present normal inspection and full ROM Respiratory: Present prolonged expiratory phase, respiratory distress, rhonchi and able to speak in complete sentences; Absent wheezes Cardiac: Present S1/S2, Tachycardia and radial pulses present GI: Present soft and distention; Absent tenderness or guarding Rectal (female): Present deferred (female): Present deferred Skin: Present intact; Absent cyanosis or jaundice Neuro: Present alert, awake and oriented x 3 Extremities: Present normal inspection; Absent clubbing or cyanosis Psychiatric: Present normal affect and cooperative Meds Home Medications and Allergies Home Medications ?Medication ?Instructions ?Recorded ?Confirmed ?Type albuterol sulfate 90 mcg/actuation 2 puff inhalation QIDP PRN COPD 07/14/24 07/14/24 History aerosol inhaler aspirin 81 mg tablet,delayed 81 mg PO DAILY 07/14/24 07/14/24 History release cetirizine 10 mg tablet (Zyrtec) 10 mg PO DAILY 07/14/24 07/14/24 History citalopram 20 mg tablet 20 mg PO DAILY 07/14/24 07/14/24 History fluticasone fur. 200 mcg-umeclid 1 inh inhalation DAILY 07/14/24 07/14/24 History 62.5 mcg-vilant 25 mcg inhalat.powder (Trelegy Ellipta) fluticasone propionate 50 50 mcg intranasal DAILY 07/14/24 07/14/24 History mcg/actuation nasal spray,suspension (Flonase Allergy Relief) losartan 50 mg tablet 50 mg PO DAILY 07/14/24 07/14/24 History roflumilast 250 mcg tablet 250 mcg PO DAILY 07/14/24 07/14/24 History simvastatin 20 mg tablet 20 mg PO HS 07/14/24 07/14/24 History triamterene 37.5 1 tab PO DAILY 07/14/24 07/14/24 History mg-hydrochlorothiazide 25 mg tablet ipratropium 0.5 mg-albuterol 3 mg 3 ml inhalation QID PRN shortness 07/15/24 07/14/24 Rx (2.5 mg base)/3 mL nebulization of breath or wheezing 30 days #0 mL soln prednisone 20 mg tablet 40 mg (2 x 20 mg) PO DAILY 3 days 07/15/24 Rx #6 tabs New Prescriptions to Start Prescriptions: prednisone Jules Mendoza Allergies Allergy/AdvReac Type Severity Reaction Status Date / Time No Known Allergies Allergy Verified 07/14/24 10:02 Results Laboratory Findings 07/15/24 06:36 07/15/24 06:36 ABG ABG pH 7.38 mmol/L (7.35-7.45) 07/15/24 06:00 ABG pCO2 50.9 mmhg (35.0-45.0) H 07/15/24 06:00 ABG pO2 60.0 mmhg (80-100) L 07/15/24 06:00 ABG O2 Saturation 91 % (90-100) 07/15/24 06:00 Abnormal lab findings: Abnormal Labs 07/14/24 07/14/24 07/14/24 09:48 09:52 14:00 WBC 15.2 H Plt Count 474 H Neut % (Auto) Neut # (Auto) 11.1 H Neutrophils % (Manual) 80 H ABG pCO2 ABG pO2 ABG HCO3 ABG Total CO2 ABG Base Excess VBG pH 7.28 L VBG pCO2 75.3 H 63.8 H VBG pO2 42.2 H VBG HCO3 34.8 H 32.1 H VBG Total CO2 37.1 H 34.0 H VBG O2 Saturation 72.1 H 77.1 H VBG Base Excess 8.1 H 5.9 H Chloride 91 L Carbon Dioxide 38 H Glucose 104 H AST 46 H 07/15/24 07/15/24 06:00 06:36 WBC 13.9 H Plt Count 445 H Neut % (Auto) 81.6 H Neut # (Auto) 11.3 H Neutrophils % (Manual) ABG pCO2 50.9 H ABG pO2 60.0 L ABG HCO3 29.4 H ABG Total CO2 30.9 H ABG Base Excess 4.2 H VBG pH VBG pCO2 VBG pO2 VBG HCO3 VBG Total CO2 VBG O2 Saturation VBG Base Excess Chloride 94 L Carbon Dioxide 38 H Glucose 106 H AST 38 H Assessment and Plan *Assessment and plan (1) Acute respiratory failure with hypoxia and hypercarbia: Status: Acute Category: Medical Code(s): J96.01 - Acute respiratory failure with hypoxia; J96.02 - Acute respiratory failure with hypercapnia (2) Acute exacerbation of chronic obstructive airways disease: Status: Acute Category: Medical Code(s): J44.1 - Chronic obstructive pulmonary disease with (acute) exacerbation Plan Ms. Davidson is a 53-year-old female current smoker greater than [id number] smoking history has now cut down to half pack a day from 1 pack a day Diagnosed with COPD and Trelegy 100 Inhaler, Chronic Hypoxic Respiratory Failure on 4 L Nasal Oxygen Supplementation Presented to the ER with Worsening Respiratory Distress Found to Be in Hypoxic Hypercarbic Respiratory Failure Needing Noninvasive Ventilator Therapy and Pulmonary Was Called for Further Evaluation and Management. Patient admits frequent exacerbations, 2-3 times per year, most recent exacerbation December 2023. Symptoms worse on hot humid months Patient upon Admission Briefly Needing Noninvasive Ventilator Therapy for Respiratory Distress Improved. Auscultation Today No Significant Wheezing. X-Ray upon Admission Hyperinflated Lungs with Bilateral small Effusions. No Dense Consolidative/Airspace Changes Noted. Mini respiratory viral PCR panel negative. Afebrile. Afebrile. Hemodynamically stable no evidence of leukocytosis. Plan: Continue oxygen supplementation to maintain O2 saturation goal of 90% and above. Weaned to 2 L today with saturations maintained at 90% and above. Trelegy 100 inhaler along with DuoNebs 4 times daily as needed Continue prednisone 40 mg to complete a total of 5-day course Antibiotics can be weaned to doxycycline to complete a total of 5-day course upon discharge. Patient also taking Roflumilast as an outpatient basis. Will continue for now pending clinic follow-up. #Patient also complains of snoring and witnessed apnea episodes. Admits polysomnography testing around 2016 which was negative for sleep apnea. Previously attempted nocturnal oximetry testing on room air however patient refused. Will follow as an outpatient basis to determine the need for polysomnography testing. Will also consider daytime ABG with her next clinic visit. # Patient also noted to have bilateral small pleural effusion on her chest x-ray from admission. Echocardiogram pending at this point of time.
--- NOTE | 2024-07-16 12:45 | SW/DCPLANNER ---
Spoke with patient on the phone. Patient stated that she is doing well. Patient stated that she was able to get her new medicine from clinic pharmacy. Patient stated that she is aware of her upcoming appointments. Patient stated that she has no concerns or questions at this time. Magda Herzog
--- NOTE | 2024-07-18 10:59 | SW/DCPLANNER ---
Phoned patient x2. Left messages with call back number. Patient didnt answer both calls. Magda Herzog
== END 2024-07-15 15:49 | disposition home or self-care (01) | DRG 189 ==
LOC: ER 10:48 → 2ND 12:04
PROVIDERS: Admitting Provider Student in an Organized Health Care Education/Training Program; Emergency Provider Student in an Organized Health Care Education/Training Program; PCP Internal Medicine; Visit Provider Student in an Organized Health Care Education/Training Program
DX: J96.21 Acute and chronic respiratory failure with hypoxia (principal); J44.1 Chronic obstructive pulmonary disease with (acute) exacerbation; J96.22 Acute and chronic respiratory failure with hypercapnia; Z99.81 Dependence on supplemental oxygen; I25.10 Atherosclerotic heart disease of native coronary artery without angina pectoris; I10 Essential (primary) hypertension; Z95.5 Presence of coronary angioplasty implant and graft; Z79.899 Other long term (current) drug therapy; F17.210 Nicotine dependence, cigarettes, uncomplicated
CPT/HCPCS: 36415; 71045; 80053; 82803; 83735; 83880; 84484; 85007; 85025; 86803; 87070; 87205; 87389; 87636; 93005; 93306; 94640; 94660; 99291; J0456; J0696; J1650; J2060; J2919; J3475; J7030; J7050; J7620

== ENCOUNTER 2025-05-11 06:38 | Inpatient (IN) | payer BC, OTHER, SELFPAY ==
[2025-05-11] VITALS (40 sets, daily range): BP systolic 96–152; BP diastolic 51–96; PULSE 83–125; RESP 18–31; TEMP 36.7–37.3; O2SAT 83–98; BMI 29.2; BMI 29.7
--- NOTE | 2025-05-11 05:47 | XR_ITS ---
PROCEDURE INFORMATION: Exam: XR Chest Exam date and time: 05/11/2025 6:00 AM Age: 54 years old Clinical indication: Cough and shortness of breath; Additional info: SOA cough TECHNIQUE: Imaging protocol: Radiologic exam of the chest. Views: 1 view. COMPARISON: CR XR CHEST PORTABLE 07/14/2024 11:25 AM FINDINGS: Lungs: Right lower lobe airspace opacity. No consolidation. Pleural spaces: Unremarkable. No pleural effusion. No pneumothorax. Heart/Mediastinum: Unremarkable. No cardiomegaly. Bones/joints: Unremarkable. IMPRESSION: Right lower lobe airspace opacity, infiltrate versus aspiration or atelectasis.
--- NOTE | 2025-05-11 05:51 | ED_ITS ---
Discharge Plan Disposition Condition: Serious Chief Complaint: Shortness of Breath/Dyspnea Clinical Impressions Clinical Impression: Sepsis, Acute on chronic respiratory failure with hypoxia and hypercapnia, Pneumonia, COPD exacerbation Discharge ED Provider: Grzegorz Bo HPI <May Schroeder MD - Last Filed: 05/11/25 06:58> General Chief Complaint: Shortness of Breath/Dyspnea Stated Complaint: SOA Time Seen by Provider: 05/11/25 06:38 History of Present Illness HPI narrative: 54-year-old female with history of hypertension, COPD presents to the ER complaining of 3 days of cough and increased work of breathing. Patient reports she has been getting progressively worse. She denies any chest pain or pressure but states she has discomfort in the chest from coughing and working so hard to breathe. She cannot identify specific time of onset of this discomfort. It has been gradually progressive with her other symptoms. She states she did take nebulizer treatment at home most recently 6 hours prior to arrival. She reports she has been coughing up brown and green phlegm with her productive cough. She denies any documented fevers. Reports mild nasal congestion. Denies sore throat, denies vomiting, diarrhea, or constipation. Denies any swelling in the feet or legs. Denies any history of cardiac problems. She states she is not a diabetic. She reports approximately 2 weeks ago she had to have a Z-Darin and steroids (Medrol Dosepak) which she finished. Patient reports she is still smoking. EMS states they administered 125 mg IV Solu-Medrol as well as 1 DuoNeb during transportation. Patient reports no other complaints or concerns. Related Data Home Medications ?Medication ?Instructions ?Recorded ?Confirmed albuterol sulfate 90 mcg/actuation 2 puff inhalation Q IDP PRN COPD 07/14/24 07/14/24 aerosol inhaler aspirin 81 mg tablet,delayed 81 mg PO DAILY 07/14/24 0 07/14/24 release cetirizine 10 mg tablet (Zyrtec) 10 mg PO DAILY 07/14/24 citalopram 20 mg tablet 20 mg PO DAILY 07/14/2406/29 fluticasone fur. 200 mcg-umeclid 1 inh inhalation MIGDALIA Y 07/14/24 07/14/24 62.5 mcg-vilant 25 mcg inhalat.powder (Trelegy Ellipta) fluticasone propionate 50 50 mcg intranasal DAILY 06/2907/14/24 mcg/actuation nasal spray,suspension (Flonase Allergy Relief) losartan 50 mg tablet 50 mg PO DAILY 07/14/2406/29 roflumilast 250 mcg tablet 250 mcg PO DAILY 07/14/24 0 07/14/24 simvastatin 20 mg tablet 20 mg PO HS 07/14/24 5 triamterene 37.5 1 tab PO DAILY 07/14/2406/29 mg-hydrochlorothiazide 25 mg tablet Previous Rx's ?Medication ?Instructions ?Recorded doxycycline monohydrate 100 mg 100 mg PO BID #60 caps 07/15/24 capsule hydroxyzine pamoate 25 mg capsule 25 mg PO Q6HP PRN It [place] 30 days 07/15/24 #30 caps ipratropium 0.5 mg-albuterol 3 mg 3 ml inhalation QID PRN shortness 07/15/24 (2.5 mg base)/3 mL nebulization of breath or wheezing 30 days #0 mL soln prednisone 20 mg tablet 40 mg (2 x 20 mg) PO DAILY 3 days 07/15/24 #6 tabs trazodone 50 mg tablet 25 mg (1/2 x 50 mg) PO HSP P RN 07/15/24 Insomnia 30 days #30 tabs triamcinolone acetonide 55 mcg 2 spray intranasal MIGDALIA Y #16.9 mL 07/15/24 nasal spray aerosol (Nasacort) Allergies Allergy/AdvReac Type Severity Reaction Status Date / Time No Known Allergies Allergy Verified 07/14/24 10:02 [facility] <May Schroeder MD - Last Filed: 05/11/25 06:58> [facility] Disclaimer: The information contained in this section may have been updated after the patient was seen, as this information can be updated by other users. Medical History (Updated 05/11/25 @ 06:57 by May Schroeder MD) Oxygen dependent Emphysema lung HLD (hyperlipidemia) HTN (hypertension) COPD (chronic obstructive pulmonary disease) Surgical History (Updated 07/14/24 @ 12:09 by Hattie Kovacs RN) Tubal ligation status Social History (Updated 07/14/24 @ 11:29 by Vannesa Montoya MD) Smoking Status: Current some day smoker alcohol intake: never current occupational status: other Travel in the last 8 weeks?: None Have you lived/traveled outside [place] in past 30 days?: No Contact w/someone who lives/traveled outside US past 30 days?: No Exposure to someone with infectious disease in past 14 days?: No Do you have a fever (greater than 100.4 F or 38 C)?: No Have you tested positive for COVID-19?: No Exposed to someone with COVID-19 in past 14 days?: No Do you have a sore throat?: No Do you have a cough?: No Do you have any weakness?: No Do you have any diarrhea?: No Are you experiencing any unusual bleeding?: No Do you have any muscle aches/pain?: No Do you have any abdominal pain?: No Are you experiencing loss of taste or smell?: No Other Medical History Have you received the Flu Vaccine for this season: No Have you received the Pneumonia Vaccine: No <May Schroeder MD - Last Filed: 05/11/25 06:58> ROS Obtained: Yes Systems reviewed as appropriate & no additional complaints except as documented Per HPI Physical Exam <May Schroeder MD - Last Filed: 05/11/25 06:58> General General appearance: alert Comment: Ill-appearing, obvious respiratory distress, appears older than stated age Head Head exam: atraumatic and normocephalic Eye Eye exam: Present PERRL and EOMI ENT ENT exam: Present mucous membranes moist Neck Neck exam: Present normal inspection and full ROM Chest Chest inspection: Present symmetric chest wall rise and other (Tracheosternal retractions of accessory muscle use); Absent tenderness Respiratory Respiratory exam: Present respiratory distress, wheezes, accessory muscle use, prolonged expiratory phase and other (Moderate tachypnea); Absent normal lung sounds bilaterally (Rhonchi and rales bilaterally) or stridor Cardiovascular Cardiovascular exam: Present normal rhythm and tachycardia Abdominal Exam Abdominal exam: Present soft; Absent distention, tenderness, guarding or rebound Extremities Exam Extremities exam: Present full ROM and normal capillary refill; Absent edema or joint swelling Neurological Exam Neurological exam: Present alert and oriented X3; Absent motor sensory deficit Psychiatric Psychiatric exam: Present normal affect and normal mood Skin Skin exam: Present warm and diaphoresis HEART Score <May Schroeder MD - Last Filed: 05/11/25 06:58> HEART Score HEART Score assessment performed?: No <Grzegorz Bo MD - Last Filed: 05/11/25 08:29> HEART Score HEART Score assessment performed?: Yes History (anamnesis): Slightly suspicious ECG: Non-specific disturbance Age: 45-65 years Risk factors: 1-2 risk factors Troponin: </= normal limit HEART Score: 3 Critical Care <May Schroeder MD - Last Filed: 05/11/25 06:58> Critical Care Time Critical Care Time: Yes Attestation: On , the high probability of a clinically significant, sudden or life threatening deterioration of the following system(s) required my full and direct attention, intervention and personal management. The time I documented below is in addition to time spent performing reported procedures but includes the following listed in this critical care notation. Total Time Total Critical Care Time: 35 Medical Decision Making <May Schroeder MD - Last Filed: 05/11/25 06:58> Medical Records Medical records reviewed: Yes I reviewed the patient's medical records. MR Comment: Previous records demonstrates patient was admitted to the hospital in June for COPD exacerbation with acute on chronic hypoxic hypercapnic respiratory failure. Patient required BiPAP, DuoNebs, Pulmicort, steroids, azithromycin. It was recommended at that time to continue Trelegy, patient had been discharged from her hospitalization with doxycycline, Roflumilast, Trelegy, and recommended pulmonology follow-up. It does not appear that she ever followed up with pulmonology. Misael Inquiry Pt receiving controlled substance: No Vital Signs Vital Signs: 05/11/25 05:50 05/11/25 05:59 05/11/25 05:59 Temperature 98.3 F Temperature Source Oral Pulse Rate 104 H Pulse Rate [Right Radial] 110 H Respiratory Rate 24 Blood Pressure [Right Arm] 131/90 Blood Pressure Mean [Right Arm] 103 Blood Pressure Source [Right Arm] Automatic Cuff 02 Sat by Pulse Oximetry 83 L 98 Oxygen Delivery Method Nasal Cannula Non-Rebreather Oxygen Flow Rate (LPM) 3 15 Fraction of Inspired Oxygen 100 05/11/25 05:59 05/11/25 06:18 05/11/25 06:18 Temperature Temperature Source Pulse Rate 102 H Pulse Rate [Right Radial] Respiratory Rate Blood Pressure [Right Arm] Blood Pressure Mean [Right Arm] Blood Pressure Source [Right Arm] 02 Sat by Pulse Oximetry 96 Oxygen Delivery Method BiPAP Oxygen Flow Rate (LPM) Fraction of Inspired Oxygen 50 50 05/11/25 08:16 Temperature Temperature Source Pulse Rate Pulse Rate [Right Radial] Respiratory Rate Blood Pressure [Right Arm] Blood Pressure Mean [Right Arm] Blood Pressure Source [Right Arm] 02 Sat by Pulse Oximetry Oxygen Delivery Method Oxygen Flow Rate (LPM) Fraction of Inspired Oxygen 40 Lab Data Labs: Lab Results 05/11/25 05:47: WBC 27.7 H*, RBC 4.57, Hgb 13.6, Hct 42.3, MCV 92.6, MCH 29.8, MCHC 32.2, RDW 12.5, Plt Count 498 H, MPV 8.9, Neut % (Auto) 81.5 H, Lymph % (Auto) 10.6, Edwards % (Auto) 6.5, Eos % (Auto) 0.4, Baso % (Auto) 0.4, Neut # (Auto) 22.6 H, Lymph # (Auto) 2.9, Edwards # (Auto) 1.8 H, Eos # (Auto) 0.1, Baso # (Auto) 0.1, D-Dimer 0.32, Sodium 140, Potassium 3.4 L, Chloride 89 L, Carbon Dioxide 37 H, Anion Gap 17.4 H, BUN 15, Creatinine 0.70, Estimated Creat Clear 99, Estimated GFR 87, Est GFR ( Amer) 106, Glucose 152 H, Calcium 9.1, Total Bilirubin 0.5, AST 39 H, ALT 23, Alkaline Phosphatase 78, Troponin I < 0.01, NT-Pro-B Natriuret Pep 102, Total Protein 8.4 H, Albumin 4.7, Globulin 3.7 H, Albumin/Globulin Ratio 1.3 05/11/25 05:55: VBG pH 7.24 L, VBG pCO2 91.0 H, VBG pO2 29.4, VBG HCO3 37.9 H, V BG Total CO2 40.7 H, VBG O2 Saturation 53.8, VBG Base Excess 10.5 H, VBG Lactic Acid 1.6, Chlamy pneumoniae PCR Not detected, Adenovirus (PCR) Not detected, B. pertussis DNA (PCR) Not detected, Coronavirus OC43 (PCR) Not detected, Coronavirus HKU1 (PCR) Not detected, Coronavirus 229E (PCR) Not detected, SARS-CoV-2 (PCR) Not detected, Coronavirus NL63 (PCR) Not detected, Human Metapneumovir PCR Not detected, Influenza A (H1) PCR Not detected, Influ A (H1N1/09) PCR Not detected, Influenza A (H3) PCR Not detected, Influenza Type A (PCR) Not detected, Influenza Type B (PCR) Not detected, M. pneumoniae (PCR) Not detected, Parainfluenza 1 (PCR) Not detected, Parainfluenza 2 (PCR) Not detected, Parainfluenza 3 (PCR) Not detected, Parainfluenza 4 (PCR) Not detected, RSV (PCR) Not detected, Entero/Rhino (PCR) Not detected 05/11/25 07:09: VBG pH 7.19 L, VBG pCO2 98.1 H, VBG pO2 53.5 H, VBG HCO3 36.5 H, VBG Total CO2 39.6 H, VBG O2 Saturation 84.6 H, VBG Base Excess 8.3 H, VBG Lactic Acid 1.2 05/11/25 05:47 05/11/25 05:47 Response Orders (Tests/Meds): ED MEDICATIONS Generic Name Dose Route Start Last Admin Trade Name Freq PRN Reason Stop Dose Admin Acetaminophen 650 mg 05/11/25 08:17 Acetaminophen 325mg Tab PO 06/10/25 08:16 Q4HP PRN Fever or Mild Pain (1-3) Albuterol/Ipratropium 3 ml 05/11/25 10:00 Ipratropium/Albuterol 3 Ml [facility] 06/10/25 09:59 Q4RT JARRED Budesonide 0.5 mg 05/11/25 18:00 Budesonide 0.5mg/2ml [facility] 06/10/25 17:59 BIDRT JARRED Enoxaparin Sodium 40 mg 05/11/25 09:00 Enoxaparin 40mg/0.4ml Syringe SUBCUT 06/10/25 08:59 DAILY JARRED Sodium Chloride 10 ml 05/11/25 06:17 Sodium Chloride 0.9% 10ml Vial IV 06/10/25 06:16 NEEDED PRN to Dilute Lorazepam inj Discontinued Medications Generic Name Dose Route Start Last Admin Trade Name Freq PRN Reason Stop Dose Admin Acetaminophen 1,000 mg 05/11/25 06:01 05/11/25 06:05 Acetaminophen 500mg Tab PO 05/11/25 06:02 1,000 mg ONCE ONE Administration Albuterol Sulfate 20 mg 05/11/25 06:47 05/11/25 07:07 Albuterol 0.083% 2.5 Mg/3 Ml [facility] 05/11/25 06:48 20 mg ONCE ONE Administration Albuterol/Ipratropium 6 ml 05/11/25 05:47 05/11/25 05:59 Ipratropium/Albuterol 3 Ml [facility] 05/11/25 05:48 6 ml ONCE ONE Administration Ceftriaxone Sodium 1 gm/ 50 mls @ 100 mls/hr 05/11/25 05:58 05/11/25 06:51 Sodium Chloride IV 05/11/25 06:27 Infused ONCE ONE Infusion Sodium Chloride 1,000 mls @ 999 mls/hr 05/11/25 06:00 05/11/25 07:27 Sod Chlor 0.9% 1000ml Bag IV 05/11/25 07:00 Infused .Q1H1M ONE Infusion Vancomycin/PEG/NADA/Lysine/Water 1.25 gm in 250 mls @ 125 mls/hr 05/11/25 06:15 05/11/25 06:33 Vancomycin 1.25gm/250ml (Peg) Premix IV 05/11/25 08:14 125 mls/hr ONCE ONE Administration Potassium Chloride/Water 100 mls @ 100 mls/hr 05/11/25 06:47 05/11/25 07:13 Potassium Chloride 10meq/100ml Ivpb IV 05/11/25 07:46 100 mls/hr ONCE ONE Administration Lorazepam 0.5 mg 05/11/25 06:17 05/11/25 06:22 Lorazepam 2mg/Ml Vial IV 05/11/25 06:18 0.5 mg ONCE ONE Administration Methylprednisolone Sodium Succinate 125 mg 05/11/25 08:19 Methylprednisolone Sod Succ 125mg Vial IV 05/11/25 08:20 ONCE ONE Miscellaneous 1 each 05/11/25 06:00 05/11/25 07:15 Vancomycin Consult Request NOTAPPLIC 06/10/25 05:59 1 each CONSULT PHARMACY JARRED Administration ORDERS Category Date Time Status Pulmonology Consult [Consult to Pulmonology] [CONS] Cons 05/11/25 08:20 Active Routine CXR --portable [XR chest portable] Stat Exams 05/11/25 05:47 Completed BNP [NT Pro Brain Natriuretic Pep.] Stat Lab 05/11/25 05:47 Completed CBC w/Auto Diff [Complete Blood Count Auto Diff] Stat Lab 05/11/25 05:47 Results CMP [Comprehensive Metabolic Panel] Stat Lab 05/11/25 05:47 Completed Complete Blood Count Auto Diff AMLAB Lab 05/12/25 06:00 Ordered Comprehensive Metabolic Panel AMLAB Lab 05/12/25 06:00 Ordered D-Dimer Stat Lab 05/11/25 05:47 Completed Full Resp Panel w/COVID ([facility]) Routine Lab 05/11/25 05:55 Completed Magnesium AMLAB Lab 05/12/25 06:00 Ordered Trop I [Troponin I] Stat Lab 05/11/25 05:47 Completed Troponin I Q3H Lab 05/11/25 09:00 Ordered Troponin I Q3H Lab 05/11/25 12:00 Ordered Urinalysis and Microscopic Stat Lab 05/11/25 05:58 Ordered Blood Culture Stat Micro 05/11/25 06:15 Received VBG [Venous Blood Gas] Stat RT 05/11/25 05:55 Completed VBG [Venous Blood Gas] Stat RT 05/11/25 07:09 Completed ECG Request Stat Y 05/11/25 05:47 Ordered MDM Narrative Medical Decision Narrative: In summary, this 54-year-old female with comorbidities described in the HPI presents to the emergency department today with shortness of breath, productive cough, aching in the chest for the last 3 days. On initial evaluation patient is tachycardic, tachypneic, she was only saturating 86% on her home 3 L nasal cannula on arrival to the ER with obvious respiratory distress, retractions, accessory muscle use, prolonged expiratory phase, wheezing, rhonchi and rales bilaterally, no peripheral edema, remainder of exam is reassuring and patient is a GCS 15. Differential diagnosis includes but is not limited to COPD exacerbation, hypercarbia, pneumonia, pneumothorax, ACS, PE, viral syndrome, I am concerned for sepsis since patient meets multiple SIRS criteria with suspected respiratory source. Based on these concerns, I ordered hematologic and serum labs including blood cultures, cardiac workup, chest x-ray, UA, viral swab. ECG personally interpreted demonstrates sinus tachycardia, rate 113, normal axis, normal OH and QTc, there is significant artifact which somewhat limits interpretation however there is no STEMI within the limitations of this study. Patient received DuoNebs initially for treatment. Blood cultures are being collected and broad spectrum antibiotics are being initiated. Patient will receive IV fluid bolus as well, I am simply starting with 1 L since she is not hemodynamically unstable. If her lactic is significantly elevated, she will receive a full 30 mL/kg bolus. Labs personally reviewed demonstrate VBG with pH 7.24, pCO2 significantly elevated at 91, no actionable electrolyte derangements on VBG, VBG lactic 1.55. Respiratory therapy is starting the patient on BiPAP. D-dimer 0.32 by years criteria PE excluded. CMP with trace hypokalemia, patient will receive IV repletion, BNP normal at 102. XR personally interpreted demonstrates findings concerning for bilateral lower lobe infiltrate, right more prominent than left. See radiology read for final interpretation. Patient has completed DuoNebs but is anxious on BiPAP, low-dose IV Ativan is being administered to help her tolerate this. Continuous albuterol is also being administered. Patient appears slightly better but still experiencing some respiratory distress. I have discussed her status with her family at bedside. We are still waiting on some labs but I discussed that she will likely require admission and they are agreeable to this. Patient handed off to Dr. Bo in serious condition pending further management and disposition. <Grzegorz Bo MD - Last Filed: 05/11/25 08:29> Vital Signs Vital Signs: 05/11/25 05:50 05/11/25 05:59 05/11/25 05:59 Temperature 98.3 F Temperature Source Oral Pulse Rate 104 H Pulse Rate [Right Radial] 110 H Respiratory Rate 24 Blood Pressure [Right Arm] 131/90 Blood Pressure Mean [Right Arm] 103 Blood Pressure Source [Right Arm] Automatic Cuff 02 Sat by Pulse Oximetry 83 L 98 Oxygen Delivery Method Nasal Cannula Non-Rebreather Oxygen Flow Rate (LPM) 3 15 Fraction of Inspired Oxygen 100 05/11/25 05:59 05/11/25 06:18 05/11/25 06:18 Temperature Temperature Source Pulse Rate 102 H Pulse Rate [Right Radial] Respiratory Rate Blood Pressure [Right Arm] Blood Pressure Mean [Right Arm] Blood Pressure Source [Right Arm] 02 Sat by Pulse Oximetry 96 Oxygen Delivery Method BiPAP Oxygen Flow Rate (LPM) Fraction of Inspired Oxygen 50 50 05/11/25 08:16 Temperature Temperature Source Pulse Rate Pulse Rate [Right Radial] Respiratory Rate Blood Pressure [Right Arm] Blood Pressure Mean [Right Arm] Blood Pressure Source [Right Arm] 02 Sat by Pulse Oximetry Oxygen Delivery Method Oxygen Flow Rate (LPM) Fraction of Inspired Oxygen 40 Lab Data Labs: Lab Results 05/11/25 05:47: WBC 27.7 H*, RBC 4.57, Hgb 13.6, Hct 42.3, MCV 92.6, MCH 29.8, MCHC 32.2, RDW 12.5, Plt Count 498 H, MPV 8.9, Neut % (Auto) 81.5 H, Lymph % (Auto) 10.6, Edwards % (Auto) 6.5, Eos % (Auto) 0.4, Baso % (Auto) 0.4, Neut # (Auto) 22.6 H, Lymph # (Auto) 2.9, Edwards # (Auto) 1.8 H, Eos # (Auto) 0.1, Baso # (Auto) 0.1, D-Dimer 0.32, Sodium 140, Potassium 3.4 L, Chloride 89 L, Carbon Dioxide 37 H, Anion Gap 17.4 H, BUN 15, Creatinine 0.70, Estimated Creat Clear 99, Estimated GFR 87, Est GFR ( Amer) 106, Glucose 152 H, Calcium 9.1, Total Bilirubin 0.5, AST 39 H, ALT 23, Alkaline Phosphatase 78, Troponin I < 0.01, NT-Pro-B Natriuret Pep 102, Total Protein 8.4 H, Albumin 4.7, Globulin 3.7 H, Albumin/Globulin Ratio 1.3 05/11/25 05:55: VBG pH 7.24 L, VBG pCO2 91.0 H, VBG pO2 29.4, VBG HCO3 37.9 H, V BG Total CO2 40.7 H, VBG O2 Saturation 53.8, VBG Base Excess 10.5 H, VBG Lactic Acid 1.6, Chlamy pneumoniae PCR Not detected, Adenovirus (PCR) Not detected, B. pertussis DNA (PCR) Not detected, Coronavirus OC43 (PCR) Not detected, Coronavirus HKU1 (PCR) Not detected, Coronavirus 229E (PCR) Not detected, SARS-CoV-2 (PCR) Not detected, Coronavirus NL63 (PCR) Not detected, Human Metapneumovir PCR Not detected, Influenza A (H1) PCR Not detected, Influ A (H1N1/09) PCR Not detected, Influenza A (H3) PCR Not detected, Influenza Type A (PCR) Not detected, Influenza Type B (PCR) Not detected, M. pneumoniae (PCR) Not detected, Parainfluenza 1 (PCR) Not detected, Parainfluenza 2 (PCR) Not detected, Parainfluenza 3 (PCR) Not detected, Parainfluenza 4 (PCR) Not detected, RSV (PCR) Not detected, Entero/Rhino (PCR) Not detected 05/11/25 07:09: VBG pH 7.19 L, VBG pCO2 98.1 H, VBG pO2 53.5 H, VBG HCO3 36.5 H, VBG Total CO2 39.6 H, VBG O2 Saturation 84.6 H, VBG Base Excess 8.3 H, VBG Lactic Acid 1.2 Response Orders (Tests/Meds): ED MEDICATIONS Generic Name Dose Route Start Last Admin Trade Name Freq PRN Reason Stop Dose Admin Acetaminophen 650 mg 05/11/25 08:17 Acetaminophen 325mg Tab PO 06/10/25 08:16 Q4HP PRN Fever or Mild Pain (1-3) Albuterol/Ipratropium 3 ml 05/11/25 10:00 Ipratropium/Albuterol 3 Ml [facility] 06/10/25 09:59 Q4RT JARRED Budesonide 0.5 mg 05/11/25 18:00 Budesonide 0.5mg/2ml [facility] 06/10/25 17:59 BIDRT JARRED Enoxaparin Sodium 40 mg 05/11/25 09:00 Enoxaparin 40mg/0.4ml Syringe SUBCUT 06/10/25 08:59 DAILY JARRED Sodium Chloride 10 ml 05/11/25 06:17 Sodium Chloride 0.9% 10ml Vial IV 06/10/25 06:16 NEEDED PRN to Dilute Lorazepam inj Discontinued Medications Generic Name Dose Route Start Last Admin Trade Name Freq PRN Reason Stop Dose Admin Acetaminophen 1,000 mg 05/11/25 06:01 05/11/25 06:05 Acetaminophen 500mg Tab PO 05/11/25 06:02 1,000 mg ONCE ONE Administration Albuterol Sulfate 20 mg 05/11/25 06:47 05/11/25 07:07 Albuterol 0.083% 2.5 Mg/3 Ml [facility] 05/11/25 06:48 20 mg ONCE ONE Administration Albuterol/Ipratropium 6 ml 05/11/25 05:47 05/11/25 05:59 Ipratropium/Albuterol 3 Ml [facility] 05/11/25 05:48 6 ml ONCE ONE Administration Ceftriaxone Sodium 1 gm/ 50 mls @ 100 mls/hr 05/11/25 05:58 05/11/25 06:51 Sodium Chloride IV 05/11/25 06:27 Infused ONCE ONE Infusion Sodium Chloride 1,000 mls @ 999 mls/hr 05/11/25 06:00 05/11/25 07:27 Sod Chlor 0.9% 1000ml Bag IV 05/11/25 07:00 Infused .Q1H1M ONE Infusion Vancomycin/PEG/NADA/Lysine/Water 1.25 gm in 250 mls @ 125 mls/hr 05/11/25 06:15 05/11/25 06:33 Vancomycin 1.25gm/250ml (Peg) Premix IV 05/11/25 08:14 125 mls/hr ONCE ONE Administration Potassium Chloride/Water 100 mls @ 100 mls/hr 05/11/25 06:47 05/11/25 07:13 Potassium Chloride 10meq/100ml Ivpb IV 05/11/25 07:46 100 mls/hr ONCE ONE Administration Lorazepam 0.5 mg 05/11/25 06:17 05/11/25 06:22 Lorazepam 2mg/Ml Vial IV 05/11/25 06:18 0.5 mg ONCE ONE Administration Methylprednisolone Sodium Succinate 125 mg 05/11/25 08:19 Methylprednisolone Sod Succ 125mg Vial IV 05/11/25 08:20 ONCE ONE Miscellaneous 1 each 05/11/25 06:00 05/11/25 07:15 Vancomycin Consult Request NOTAPPLIC 06/10/25 05:59 1 each CONSULT PHARMACY JARRED Administration ORDERS Category Date Time Status Pulmonology Consult [Consult to Pulmonology] [CONS] Cons 05/11/25 08:20 Active Routine CXR --portable [XR chest portable] Stat Exams 05/11/25 05:47 Completed BNP [NT Pro Brain Natriuretic Pep.] Stat Lab 05/11/25 05:47 Completed CBC w/Auto Diff [Complete Blood Count Auto Diff] Stat Lab 05/11/25 05:47 Results CMP [Comprehensive Metabolic Panel] Stat Lab 05/11/25 05:47 Completed Complete Blood Count Auto Diff AMLAB Lab 05/12/25 06:00 Ordered Comprehensive Metabolic Panel AMLAB Lab 05/12/25 06:00 Ordered D-Dimer Stat Lab 05/11/25 05:47 Completed Full Resp Panel w/COVID ([facility]) Routine Lab 05/11/25 05:55 Completed Magnesium AMLAB Lab 05/12/25 06:00 Ordered Trop I [Troponin I] Stat Lab 05/11/25 05:47 Completed Troponin I Q3H Lab 05/11/25 09:00 Ordered Troponin I Q3H Lab 05/11/25 12:00 Ordered Urinalysis and Microscopic Stat Lab 05/11/25 05:58 Ordered Blood Culture Stat Micro 05/11/25 06:15 Received VBG [Venous Blood Gas] Stat RT 05/11/25 05:55 Completed VBG [Venous Blood Gas] Stat RT 05/11/25 07:09 Completed ECG Request Stat Y 05/11/25 05:47 Ordered MDM Narrative Medical Decision Narrative: In summary, this 54-year-old female with comorbidities described in the HPI presents to the emergency department today with shortness of breath, productive cough, aching in the chest for the last 3 days. On initial evaluation patient is tachycardic, tachypneic, she was only saturating 86% on her home 3 L nasal cannula on arrival to the ER with obvious respiratory distress, retractions, accessory muscle use, prolonged expiratory phase, wheezing, rhonchi and rales bilaterally, no peripheral edema, remainder of exam is reassuring and patient is a GCS 15. Differential diagnosis includes but is not limited to COPD exacerbation, hypercarbia, pneumonia, pneumothorax, ACS, PE, viral syndrome, I am concerned for sepsis since patient meets multiple SIRS criteria with suspected respiratory source. Based on these concerns, I ordered hematologic and serum labs including blood cultures, cardiac workup, chest x-ray, UA, viral swab. ECG personally interpreted demonstrates sinus tachycardia, rate 113, normal axis, normal OH and QTc, there is significant artifact which somewhat limits interpretation however there is no STEMI within the limitations of this study. Patient received DuoNebs initially for treatment. Blood cultures are being collected and broad spectrum antibiotics are being initiated. Patient will receive IV fluid bolus as well, I am simply starting with 1 L since she is not hemodynamically unstable. If her lactic is significantly elevated, she will receive a full 30 mL/kg bolus. Labs personally reviewed demonstrate VBG with pH 7.24, pCO2 significantly elevated at 91, no actionable electrolyte derangements on VBG, VBG lactic 1.55. Respiratory therapy is starting the patient on BiPAP. D-dimer 0.32 by years criteria PE excluded. CMP with trace hypokalemia, patient will receive IV repletion, BNP normal at 102. XR personally interpreted demonstrates findings concerning for bilateral lower lobe infiltrate, right more prominent than left. See radiology read for final interpretation. Patient has completed DuoNebs but is anxious on BiPAP, low-dose IV Ativan is being administered to help her tolerate this. Continuous albuterol is also being administered. Patient appears slightly better but still experiencing some respiratory distress. I have discussed her status with her family at bedside. We are still waiting on some labs but I discussed that she will likely require admission and they are agreeable to this. Patient handed off to Dr. Bo in serious condition pending further management and disposition. Taking over for Dr. Schroeder. Repeat VBG with worsening respiratory acidosis and hypercarbic respiratory failure. Discussed with patient and at bedside intubation. was amenable however patient was alert and oriented and refused intubation at this time. Discussed with respiratory therapy who will plan to increase settings and rate BiPAP. I discussed with hospitalist who agreed to evaluate for admission to the ICU.
--- NOTE | 2025-05-11 05:52 | ECG_ITS ---
APPROVED REPORT Exam: Resting ECG HR:113 bpm ECG Measurements Heart Rate 113 AXES ID 156 P 66 QRSd 71 QRS 84 QT 325 T 84 QTc 392 Conclusion SINUS TACHYCARDIA ABNORMAL RHYTHM ECG UNCONFIRMED REPORT Electronically signed by : YANE KING, 05/12/2025 00:19:20
[2025-05-11 05:59] LABS: Adenovirus,PCR Not Detected (NotDetected); Chlamydophila Pneumoniae, PCR Not Detected (NotDetected); Coronavirus 19, PCR Not Detected (NotDetected); Coronovirus HKU1,PCR Not Detected (NotDetected); Influenza A, PCR Not Detected (NotDetected); Influenza AH1, 2009 Not Detected (NotDetected); Influenza AH1, PCR Not Detected (NotDetected); Influenza AH3,PCR Not Detected (NotDetected); Influenza B, PCR Not Detected (NotDetected); Mycoplasma Pneumoniae, PCR Not Detected (NotDetected); Parainfluenza 1, PCR Not Detected (NotDetected); Parainfluenza 2, PCR Not Detected (NotDetected); Parainfluenza 3, PCR Not Detected (NotDetected); Parainfluenza 4, PCR Not Detected (NotDetected)
[2025-05-11] MEDS: IPRATROPIUM/ALBUTEROL 3 ML NEB 6 ML IH (05:59)
[2025-05-11 06:02] LABS: Lactate Venous 1.6 mmol/L (0.4-2.0); VBG HCO3 37.9 mmol/L (23-30); VBG PH 7.24 mmol/L (7.31-7.41); VBG PO2 29.4 mmol/L (28-40)
[2025-05-11 06:05] LABS: Albumin Level 4.7 g/dl (3.5-5.0); Chloride 89 mmol/L (98-107); Potassium 3.4 mmoL/L (3.5-5.1); Sodium 140 mmol/L (136-145)
[2025-05-11] MEDS: ACETAMINOPHEN 500MG TAB 1000 MG PO (06:05)
[2025-05-11 06:07] LABS: Blood Urea Nitrogen 15 mg/dl (7-17); Creatinine Clearance Estimated 99 mL/min (50-200); Creatinine,Serum 0.70 mg/dl (0.52-1.04); Estimated Glomerular Filt Rate 87 ml/min (>60); GFR (African American) 106 ML/MIN (>60)
[2025-05-11 06:08] LABS: Alanine Aminotransferase 23 U/L (12-78); Albumin/Globulin Ratio 1.3 (1.1-1.8); Alkaline Phosphatase 78 U/L (38-126); Aspartate Amino Transferase 39 U/L (14-36); Bilirubin,Total 0.5 mg/dl (0.2-1.3); Calcium 9.1 mg/dl (8.4-10.2); Globulin 3.7 g/dL (1.3-3.2); Glucose 152 mg/dl (74-100); Total Protein,Serum 8.4 g/dl (6.3-8.2)
[2025-05-11 06:11] LABS: D-Dimer 0.32 ug/mL (0.0-0.5)
[2025-05-11 06:15] LABS: Anion Gap 17.4 mEq/L (5-15); Carbon Dioxide 37 mmol/L (22.0-30.0)
[2025-05-11] MEDS: 0.9 % SODIUM CHLORIDE 1000ML 1,000 ML 999 ML IV (06:17)
[2025-05-11 06:18] LABS: NT Pro Brain Natriuretic Pep. 102 pg/mL (0-125)
[2025-05-11] MEDS: CEFTRIAXONE 1 GM 1 GM in 0.9 % SODIUM CHLORIDE 50 ML IV (06:19)
[2025-05-11 06:21] LABS: Hematocrit 42.3 % (37.0-47.0); Hemoglobin 13.6 g/dL (12.2-16.2); Immature Granulocytes % 0.6 %; Mean Corpuscular HGB Conc 32.2 g/dL (31.8-35.4); Mean Corpuscular Hemoglobin 29.8 pg (27.0-31.2); Mean Corpuscular Volume 92.6 fl (81-99); Nucleated Red Blood Cells % 0 %; Platelet Count 498 K/mm3 (142-424); Red Blood Count 4.57 M/mm3 (4.20-5.40); Red Cell Distribution Width-SD 42.4 fL; White Blood Count 27.7 K/mm3 (4.8-10.8)
[2025-05-11] MEDS: LORazepam 2MG/ML VIAL 0.5 MG IV (06:22)
[2025-05-11] MEDS: VANCOMYCIN/WATER FOR INJ (PEG) 1.25 GM/250 ML PIGGYBACK IV ×2 (06:33→20:00)
[2025-05-11 06:40] LABS: VBG PCO2 91.0 mmol/L (35-51)
[2025-05-11] MEDS: ALBUTEROL 0.083% 2.5 MG/3 ML NEB 20 MG IH (07:07)
[2025-05-11 07:13] LABS: Troponin I < 0.01 ng/ml (0.00-0.034)
--- OUTSIDE RECORDS SUMMARY | 2025-05-11 07:13 | XMS_ITS | Encounter Summary ---
Author Organization [employer] ([place], [place], [place], [place], [place]) Address [address] [place] [address] Care Team Providers Care Type Mapper Name Role Phone Unavailable Primary Care Provider Unavailabl e Encounter Details Date Type Department Care Team (Late st Contact Info) Description 06/15/2018 Transcribed Document [facility] [place] [facility] [address] [place] [address] ProviderJamie MD [address] [place] [address] Social History Tobacco Use Types Packs/Day Years Used Date Smoking Tobacco: Never Assessed Comments Unknown Sex and Gender Information Value Date Recorded Sex Assigned at Not on file Legal Sex Female 5:21 PM CDT Gender Identity Not on file Sexual Orientation Not on file documented as of this encounter Miscellaneous Notes * Cerner Conversion Note - Jamie Slater MD - 06/15/2018 10:13 AM [employer] [employer]ER DATE OF PROCEDURE: 05/11/2018 LEFT HEART CATHETERIZATION REPORT INDICATION: Dyspnea-equivalent angina with inferior septal ischemia by exercise Myoview perfusion study. REFERRING PHYSICIANS: 1. Mor Rivero MD 2. Dr. Precious Hernandez PROCEDURES: Standard left heart catheterization. TECHNIQUE: A 5/6-Azeri sheath was placed into the right radial artery, 5 mg of verapamil and 3000 units of heparin were administered via the radial artery sheath. TIG 4.0 diagnostic catheter was used for selective angiography of left and right coronary arteries, obtaining pressures in the left ventricle. Left ventriculogram was not performed. Following diagnostic catheterization, the radial artery sheath was removed and the access site successfully compressed using TR band. No complications. HEMODYNAMICS: Left ventricle 102/15 mmHg, aorta 102/64 mmHg. DIAGNOSES: 1. Mild coronary artery atherosclerosis. 2. Normal left ventricular filling pressure without gradient across the aortic valve. CORONARY ANATOMY: 1. Left main trunk: Angiographically normal. 2. LAD: Moderate caliber vessel which gives rise to a moderate caliber first diagonal branch, additional tiny diagonal branches before extending beyond the apex. Mild atherosclerosis present in the LAD and diagonal branches. 3. Circumflex artery: Moderate caliber vessel which gives rise to a tiny high lateral branch, small caliber lateral branch, small caliber posterolateral branch. Mild atherosclerosis present in the circumflex artery. 4. Right coronary artery: Dominant vessel. Large caliber vessel which gives rise to a tiny posterior descending artery and a small caliber posterolateral branch. Mild atherosclerosis in the right coronary artery. 5. Left ventricle: Normal left ventricular filling pressure without gradient across the aortic valve. IMPRESSION: Angiographically the patient has mild coronary artery atherosclerosis. There is no indication for revascularization. Risk factor modification is recommended. Davide Fregoso M.D. Dict: 06/15/2018 10:13:41 Trans: 06/15/2018 12:45:57 CC1: Davide Fregoso M.D. CC2: Mor Rivero MD CC3: Dr. Precious Hernandez documented in this encounter Plan of Treatment Not on file documented as of this encounter Visit Diagnoses Not on filedocumented in this encounter
--- OUTSIDE RECORDS SUMMARY | 2025-05-11 07:13 | XMS_ITS | Referral Summary ---
Author Organization [employer] ([place], [place], [place], [place], [place]) Address [address] [place] [id number] Care Team Providers Care Forestry Instructor Name Role Phone Unavailable Primary Care Provider Unavailabl e Social History Tobacco Use Types Packs/Day Years Used Date Smoking Tobacco: Never Assessed Comments Unknown Sex and Gender Information Value Date Recorded Sex Assigned at Not on file Legal Sex Female 5:21 PM CDT Gender Identity Not on file Sexual Orientation Not on file Plan of Treatment Not on file
--- OUTSIDE RECORDS SUMMARY | 2025-05-11 07:13 | XMS_ITS | Clinical Summary ---
Author Organization [employer] ([place], [place], [place], [place], [place]) Address [address] [place] [id number] Care Team Providers Care Work Checker Name Role Phone Unavailable Primary Care Provider [...]
[2025-05-11] MEDS: VANCOMYCIN CONSULT REQUEST 1 EACH NOTAPPLIC ×2 (07:15→17:12)
[2025-05-11 08:00] LABS: Lactate Venous 1.2 mmol/L (0.4-2.0); VBG HCO3 36.5 mmol/L (23-30); VBG PO2 53.5 mmol/L (28-40)
[2025-05-11 08:19] LABS: VBG PCO2 98.1 mmol/L (35-51); VBG PH 7.19 mmol/L (7.31-7.41)
--- NOTE | 2025-05-11 08:19 | PC.NURSE ---
traffic sign supervisor contacted for bed
--- NOTE | 2025-05-11 08:50 | PC.NURSE ---
Report given to JOSSELIN Ward in ICU.
[2025-05-11 08:59] LABS: RBC Morphology Normal; Total Cells Counted 100
--- NOTE | 2025-05-11 09:10 | PC.NURSE ---
patient arrived to the ICU via stretcher @[id number]
--- NOTE | 2025-05-11 09:30 | PC.NURSE ---
Patient refused CRE Swab. Continuation of care plan.
[2025-05-11] MEDS: IPRATROPIUM/ALBUTEROL 3 ML NEB IH ×4 (09:58→22:01)
[2025-05-11] MEDS: METHYLPREDNISOLONE SOD SUCC 125MG VIAL 125 MG IV (10:10)
[2025-05-11 10:15] LABS: Troponin I < 0.01 ng/ml (0.00-0.034)
--- NOTE | 2025-05-11 10:46 | HMH.PHAINT1 ---
Pharmacy Intervention Comments: MEDICATION RECONCILIATION COMPLETE USING EXTERNAL PHARMACY FILL HISTORY.
[2025-05-11 12:02] LABS: Lactate Venous 1.7 mmol/L (0.4-2.0); VBG HCO3 31.7 mmol/L (23-30); VBG PH 7.40 mmol/L (7.31-7.41); VBG PO2 51.4 mmol/L (28-40)
[2025-05-11 12:04] LABS: VBG PCO2 52.7 mmol/L (35-51)
--- NOTE | 2025-05-11 12:07 | PC.NURSE ---
notified of [address] Wolfe states he would like for patient to remain on Bipap for one hour. Dr. Wolfe states after the hour patient may have a break off Bipap and can have wet mouth swabs. Patient is to remain NPO. Continuation of care plan.
--- NOTE | 2025-05-11 12:38 | EXP.HP ---
History of Present Illness *Admission Date: 05/11/25 *Reason for visit:: dyspnea *History of present illness: Ms. Davidson is a 54-year-old female with continued tobacco use disorder, COPD, chronic respiratory failure on 3 to 4 L oxygen at baseline. Presents to the ER with worsening shortness of breath over the past week. Denies chest pain, nausea, vomiting. States that she has had increased coughing and work of breathing. Not getting relief from breathing treatments and nebulizers at home. EMS called who brought patient to the ER. During transportation, she was initiated on Solu-Medrol and DuoNebs. By the time she arrived to the ER, blood gas showed hypercarbia and respiratory acidosis with white count of 27. Chest imaging positive for pneumonia. Initiated on BiPAP. Medicine consulted for admission and further management of respiratory failure and pneumonia. Patient to be admitted to the ICU. On my evaluation, significant other is at bedside. Patient unable to answer many questions due to BiPAP. She does awaken however and appears oriented to self and awake but falls asleep easily. In moderate distress. [facility] Disclaimer: The information contained in this section may have been updated after the patient was seen, as this information can be updated by other users. Medical History Oxygen dependent Emphysema lung HLD (hyperlipidemia) HTN (hypertension) COPD (chronic obstructive pulmonary disease) Surgical History Tubal ligation status Social History Smoking Status: Current some day smoker alcohol intake: never current occupational status: other Travel in the last 8 weeks?: None Have you lived/traveled outside US in past 30 days?: No Contact w/someone who lives/traveled outside US past 30 days?: No Exposure to someone with infectious disease in past 14 days?: No Do you have a fever (greater than 100.4 F or 38 C)?: No Have you tested positive for COVID-19?: No Exposed to someone with COVID-19 in past 14 days?: No Do you have a sore throat?: No Do you have a cough?: No Do you have any weakness?: No Do you have any diarrhea?: No Are you experiencing any unusual bleeding?: No Do you have any muscle aches/pain?: No Do you have any abdominal pain?: No Are you experiencing loss of taste or smell?: No Other Medical History Have you received the Flu Vaccine for this season: No Have you received the Pneumonia Vaccine: No Review of Systems Review of Systems Review of systems:: unable to obtain Review of systems (narrative): Due to wearing BiPAP Meds Home Medications and Allergies Home Medications ?Medication ?Instructions ?Recorded ?Confirmed ?Type albuterol sulfate 90 mcg/actuation 2 puff inhalation QIDP PRN 07/14/24 05/11/25 History aerosol inhaler Shortness Of Breath Or Wheezing aspirin 81 mg tablet,delayed 81 mg PO DAILY 07/14/24 05/11/25 History release cetirizine 10 mg tablet (Zyrtec) 10 mg PO DAILY 07/14/24 05/11/25 History citalopram 20 mg tablet 20 mg PO DAILY 07/14/24 05/11/25 History fluticasone propionate 50 2 spray intranasal DAILY 07/14/24 05/11/25 History mcg/actuation nasal spray,suspension (Flonase Allergy Relief) losartan 50 mg tablet 50 mg PO DAILY 07/14/24 05/11/25 History simvastatin 20 mg tablet 20 mg PO HS 07/14/24 05/11/25 History triamterene 37.5 1 tab PO DAILY 07/14/24 05/11/25 History mg-hydrochlorothiazide 25 mg tablet fluticasone fur. 200 mcg-umeclid 1 ea inhalation DAILY 05/11/25 05/11/25 History 62.5 mcg-vilant 25 mcg inhalat.powder (Trelegy Ellipta) ipratropium 0.5 mg-albuterol 3 mg 3 ml inhalation QIDP PRN shortness 05/11/25 05/11/25 History (2.5 mg base)/3 mL nebulization of breath or wheezing soln roflumilast 500 mcg tablet 500 mcg PO DAILY 05/11/25 05/11/25 History New Prescriptions to Start Prescriptions: Allergies Allergy/AdvReac Type Severity Reaction Status Date / Time No Known Allergies Allergy Verified 07/14/24 10:02 Exam Data for Last 24 hours Vital signs and Labs for Last 24 Hours: Temp Pulse Resp BP Pulse Ox O2 Del Method O2 Flow Rate 98.3 F 94 H 22 111/51 L 94 L BiPAP 15 05/11/25 12:00 05/11/25 12:00 05/11/25 12:00 05/11/25 12:00 05/11/25 12:00 05/11/25 12:00 05/11/25 05:59 FiO2 30 05/11/25 12:00 Laboratory Results - last 24 hr 05/11/25 05:47: WBC 27.7 H*, RBC 4.57, Hgb 13.6, Hct 42.3, MCV 92.6, MCH 29.8, MCHC 32.2, RDW 12.5, Plt Count 498 H, MPV 8.9, Neut % (Auto) 81.5 H, Lymph % (Auto) 10.6, [place] % (Auto) 6.5, Eos % (Auto) 0.4, Baso % (Auto) 0.4, Neut # (Auto) 22.6 H, Lymph # (Auto) 2.9, [place] # (Auto) 1.8 H, Eos # (Auto) 0.1, Baso # (Auto) 0.1, Total Counted 100, Neutrophils % (Manual) 84 H, Lymphocytes % (Manual) 10, Monocytes % (Manual) 5, Basophils % (Manual) 1.0, Platelet Estimate Slight increase, RBC Morphology Normal, D-Dimer 0.32, Sodium 140, Potassium 3.4 L, Chloride 89 L, Carbon Dioxide 37 H, Anion Gap 17.4 H, BUN 15, Creatinine 0.70, Estimated Creat Clear 99, Estimated GFR 87, Est GFR ( Amer) 106, Glucose 152 H, Calcium 9.1, Total Bilirubin 0.5, AST 39 H, ALT 23, Alkaline Phosphatase 78, Troponin I < 0.01, NT-Pro-B Natriuret Pep 102, Total Protein 8.4 H, Albumin 4.7, Globulin 3.7 H, Albumin/Globulin Ratio 1.3 05/11/25 05:55: VBG pH 7.24 L, VBG pCO2 91.0 H, VBG pO2 29.4, VBG HCO3 37.9 H, VBG Total CO2 40.7 H, VBG O2 Saturation 53.8, VBG Base Excess 10.5 H, VBG Lactic Acid 1.6, Chlamy pneumoniae PCR Not detected, Adenovirus (PCR) Not detected, B. pertussis DNA (PCR) Not detected, Coronavirus OC43 (PCR) Not detected, Coronavirus HKU1 (PCR) Not detected, Coronavirus 229E (PCR) Not detected, SARS-CoV-2 (PCR) Not detected, Coronavirus NL63 (PCR) Not detected, Human Metapneumovir PCR Not detected, Influenza A (H1) PCR Not detected, Influ A (H1N1/09) PCR Not detected, Influenza A (H3) PCR Not detected, Influenza Type A (PCR) Not detected, Influenza Type B (PCR) Not detected, M. pneumoniae (PCR) Not detected, Parainfluenza 1 (PCR) Not detected, Parainfluenza 2 (PCR) Not detected, Parainfluenza 3 (PCR) Not detected, Parainfluenza 4 (PCR) Not detected, RSV (PCR) Not detected, Entero/Rhino (PCR) Not detected 05/11/25 07:09: VBG pH 7.19 L, VBG pCO2 98.1 H, VBG pO2 53.5 H, VBG HCO3 36.5 H, VBG Total CO2 39.6 H, VBG O2 Saturation 84.6 H, VBG Base Excess 8.3 H, VBG Lactic Acid 1.2 05/11/25 09:25: Troponin I < 0.01 05/11/25 12:00: VBG pH 7.40, VBG pCO2 52.7 H, VBG pO2 51.4 H, VBG HCO3 31.7 H, VBG Total CO2 33.3 H, VBG O2 Saturation 90.8 H, VBG Base Excess 6.8 H, VBG Lactic Acid 1.7 I & O for Last 24 hours: Intake & Output 05/08/25 05/09/25 05/10/25 05/11/25 23:59 23:59 23:59 23:59 Intake Total 1399 / 1400 Balance 1399 / 1399 Weight 69 kg Constitutional Constitutional: moderate distress, obese, chronically ill appearing and cooperative *Routine HEENT Exam Head: Present normocephalic Eye: Present EOMI ENT: Present mucous membranes moist *Routine Neck Exam Neck: Present supple *Routine Respiratory Exam Respiratory: Present accessory muscle use, prolonged expiratory phase, wheezes and diminished air movement; Absent crackles *Routine Cardiovascular Exam Cardiovascular: Present tachycardia *Routine Abdominal Exam Abdominal: Present soft *Routine Rectal Exam Rectal:: deferred *Routine Genitalia Exam Genitalia:: deferred *Routine Extremities Exam Extremities: Absent cyanosis, clubbing or edema *Routine Skin Exam Skin: Present intact; Absent rash *Routine Neurological Exam Neurological: Present alert and moving all extremities Comments: Somnolent, dozes easily. Does awaken and answer questions appropriately. Appears oriented. Assessment and Plan *Assessment and plan (1) Acute respiratory failure with hypoxia and hypercarbia: Problem Comment: Acute on chronic, present on admission. Has acute hypercapnic failure superimposed on chronic hypoxic respiratory failure Status: Acute Category: Medical Code(s): J96.01 - Acute respiratory failure with hypoxia; J96.02 - Acute respiratory failure with hypercapnia (2) COPD (chronic obstructive pulmonary disease): Status: Acute Category: Medical Code(s): J44.9 - Chronic obstructive pulmonary disease, unspecified (3) HTN (hypertension): Status: Acute Category: Medical Code(s): I10 - Essential (primary) hypertension (4) Acute exacerbation of chronic obstructive airways disease: Status: Acute Category: Medical Code(s): J44.1 - Chronic obstructive pulmonary disease with (acute) exacerbation (5) Sepsis: Status: Acute Category: Medical Code(s): A41.9 - Sepsis, unspecified organism (6) Pneumonia: Status: Acute Category: Medical Code(s): J18.9 - Pneumonia, unspecified organism Plan Violeta Davidson is a 54-year-old female with a medical history of COPD on 4 L baseline, CAD s/p stent, hypertension, anxiety/depression who presents with progressive shortness of breath for at least a week. Has been trying to get better at home and just not improving. Not responding to her inhalers. Presented to the ER via EMS in respiratory distress. Meeting sepsis criteria with hypercapnic respiratory failure necessitating BiPAP. Discussed case with ER physician, request admission to the ICU for further management of her respiratory failure, pneumonia, sepsis. I agreed to admit for further care. Continue BiPAP at this time. Will consult pulmonology to assist with management of noninvasive positive pressure ventilation and pneumonia treatment. Patient is seriously ill, high risk for decompensation. Problems addressed as follows: # Severe sepsis #Acute on chronic hypercapnic, hypoxic respiratory failure #COPD exacerbation ? Progressive shortness of breath for a week. VBG with initial pH 7.24, pCO2 91. Got worse after the first hour of wearing BiPAP. - Tachypneic, white count of 27, pneumonia on chest x-ray. In the setting of her acute on chronic respiratory failure, meeting severe sepsis criteria with endorgan dysfunction. - Continue BiPAP, respiratory therapy consulted to make adjustments. Repeat VBG pending at noon. - Pulmonology consulted to evaluate in the morning - Continue DuoNebs every 4 hours scheduled, Pulmicort twice daily, received 225 mg Solu-Medrol IV once. Continue 60 mg twice daily. -Comprehensive respiratory panel negative ? Continue vancomycin IV and ceftriaxone 2 g daily. ? Continue home Roflumilast, hold Trelegy for now. - Nicotine patch daily for tobacco use disorder #Hypertension ? Resume ARB therapy with irbesartan as formulary conversion at 75 mg daily. #Anxiety/depression ? Resume home citalopram 20 mg. #CAD s/p stent 2018 ? Resume home aspirin, holding statin due to sepsis. Full code DVT prophylaxis: Lovenox 40 mg Regular diet
[2025-05-11 12:44] LABS: Troponin I < 0.01 ng/ml (0.00-0.034)
--- NOTE | 2025-05-11 14:08 | PC.NURSE ---
Patient placed on NC. Patient oxygen saturation of 92 % on 5 L NC at this time. Continuation of care plan.
[2025-05-11 14:17] LABS: Microscopic, Urine URINE MICROSCOPIC (MICROSCOPIC)
[2025-05-11] MEDS: ACETAMINOPHEN 325MG TAB 650 MG PO (14:19)
[2025-05-11 14:20] LABS: Bilirubin,Urine Negative (Negative); Color,Urine YELLOW (Yellow); Glucose,Urine (UA) Negative (Negative); Ketones,Urine Negative (Negative); Leukocyte Esterase,Urine Negative (Negative); PH,Urine 5.5 (5.0-8.5); Protein,Urine Negative (Negative); Specific Gravity, Urine >= 1.030 (1.005-1.030); Urobilinogen,Urine 0.2 EU/dl (0.2)
[2025-05-11 14:36] LABS: Bacteria,Urine Trace /lpf; Squamous Epithelial Cell,Urine Occasional #/hpf (0-5); WBC,Urine Occasional #/hpf (0-3)
[2025-05-11] MEDS: NICOTINE 21MG/24HR PATCH 21 MG TD (16:45)
--- NOTE | 2025-05-11 18:20 | PC.NURSE ---
Patient placed on Bipap at this time. Continuation of care plan.
[2025-05-11] MEDS: BUDESONIDE 0.5MG/2ML NEB 0.5 MG IH (19:20)
[2025-05-11] MEDS: METHYLPREDNISOLONE SOD SUCC 40MG VIAL 40 MG IV (19:48)
[2025-05-11] MEDS: CITALOPRAM 20MG TABLET 20 MG PO (20:55)
[2025-05-11] MEDS: FLUTICASONE PROP 50MCG NASAL SPRAY 16GM 2 SPRAY NS (22:17)
[2025-05-12] VITALS (45 sets, daily range): BP systolic 89–146; BP diastolic 44–83; PULSE 78–125; RESP 13–34; TEMP 36.6–37; O2SAT 91–99; BMI 30.2
[2025-05-12] MEDS: IPRATROPIUM/ALBUTEROL 3 ML NEB IH ×6 (02:43→22:00)
[2025-05-12 05:21] LABS: Albumin Level 4.1 g/dl (3.5-5.0); Chloride 95 mmol/L (98-107); Sodium 132 mmol/L (136-145)
[2025-05-12 05:22] LABS: Potassium 3.7 mmoL/L (3.5-5.1)
[2025-05-12 05:24] LABS: Alanine Aminotransferase 18 U/L (12-78); Albumin/Globulin Ratio 1.4 (1.1-1.8); Anion Gap 4.7 mEq/L (5-15); Aspartate Amino Transferase 38 U/L (14-36); Blood Urea Nitrogen 18 mg/dl (7-17); Carbon Dioxide 36 mmol/L (22.0-30.0); Creatinine Clearance Estimated 118 mL/min (50-200); Creatinine,Serum 0.60 mg/dl (0.52-1.04); Estimated Glomerular Filt Rate 104 ml/min (>60); GFR (African American) 126 ML/MIN (>60); Globulin 2.9 g/dL (1.3-3.2); Total Protein,Serum 7.0 g/dl (6.3-8.2)
[2025-05-12 05:25] LABS: Alkaline Phosphatase 60 U/L (38-126); Bilirubin,Total 0.4 mg/dl (0.2-1.3); Calcium 9.2 mg/dl (8.4-10.2); Glucose 119 mg/dl (74-100); Magnesium 1.9 mg/dl (1.6-2.3)
[2025-05-12 05:36] LABS: Hematocrit 34.5 % (37.0-47.0); Immature Granulocytes % 0.5 %; Mean Corpuscular HGB Conc 33.3 g/dL (31.8-35.4); Mean Corpuscular Hemoglobin 30.0 pg (27.0-31.2); Mean Corpuscular Volume 90.1 fl (81-99); Nucleated Red Blood Cells % 0 %; Platelet Count 418 K/mm3 (142-424); Red Blood Count 3.83 M/mm3 (4.20-5.40); Red Cell Distribution Width-SD 40.0 fL; White Blood Count 18.4 K/mm3 (4.8-10.8)
[2025-05-12 05:58] LABS: Hemoglobin 11.3 g/dL (12.2-16.2)
[2025-05-12] MEDS: BUDESONIDE 0.5MG/2ML NEB 0.5 MG IH ×2 (06:09→17:58)
--- NOTE | 2025-05-12 07:58 | EXP.PHA.CONS ---
Pharmacy Consult Date: 05/12/25 Time: 07:59 Referring provider: DR EASTMAN Reason for Consult:: VANCOMYCIN DOSING CONSULT Allergies Allergy/AdvReac Type Severity Reaction Status Date / Time No Known Allergies Allergy Verified 07/14/24 10:02 Home Medications ?Medication ?Instructions ?Recorded ?Confirmed ?Type albuterol sulfate 90 mcg/actuation 2 puff inhalation QIDP PRN 07/14/24 05/11/25 History aerosol inhaler Shortness Of Breath Or Wheezing aspirin 81 mg tablet,delayed 81 mg PO DAILY 07/14/24 05/11/25 History release cetirizine 10 mg tablet (Zyrtec) 10 mg PO DAILY 07/14/24 05/11/25 History citalopram 20 mg tablet 20 mg PO DAILY 07/14/24 05/11/25 History fluticasone propionate 50 2 spray intranasal DAILY 07/14/24 05/11/25 History mcg/actuation nasal spray,suspension (Flonase Allergy Relief) losartan 50 mg tablet 50 mg PO DAILY 07/14/24 05/11/25 History simvastatin 20 mg tablet 20 mg PO HS 07/14/24 05/11/25 History triamterene 37.5 1 tab PO DAILY 07/14/24 05/11/25 History mg-hydrochlorothiazide 25 mg tablet fluticasone fur. 200 mcg-umeclid 1 ea inhalation DAILY 05/11/25 05/11/25 History 62.5 mcg-vilant 25 mcg inhalat.powder (Trelegy Ellipta) ipratropium 0.5 mg-albuterol 3 mg 3 ml inhalation QIDP PRN shortness 05/11/25 05/11/25 History (2.5 mg base)/3 mL nebulization of breath or wheezing soln roflumilast 500 mcg tablet 500 mcg PO DAILY 05/11/25 05/11/25 History New Prescriptions to Start Prescriptions: Height: 1.52 m Weight: 69.8 kg Laboratory Results:: Laboratory Results - last 24 hr 05/11/25 05:47: Total Counted 100, Neutrophils % (Manual) 84 H, Lymphocytes % (Manual) 10, Monocytes % (Manual) 5, Basophils % (Manual) 1.0, Platelet Estimate Slight increase, RBC Morphology Normal 05/11/25 07:09: VBG pH 7.19 L, VBG pCO2 98.1 H, VBG pO2 53.5 H, VBG HCO3 36.5 H, VBG Total CO2 39.6 H, VBG O2 Saturation 84.6 H, VBG Base Excess 8.3 H, VBG Lactic Acid 1.2 05/11/25 09:25: Troponin I < 0.01 05/11/25 11:58: Troponin I < 0.01 05/11/25 12:00: VBG pH 7.40, VBG pCO2 52.7 H, VBG pO2 51.4 H, VBG HCO3 31.7 H, VBG Total CO2 33.3 H, VBG O2 Saturation 90.8 H, VBG Base Excess 6.8 H, VBG Lactic Acid 1.7 05/11/25 14:06: Urine Color Yellow, Urine Appearance Clear, Urine pH 5.5, Ur Specific [place] >= 1.030, Urine Protein Negative, Urine Glucose (UA) Negative, Urine Ketones Negative, Urine Blood Negative, Urine Nitrate Negative, Urine Bilirubin Negative, Urine Urobilinogen 0.2, Ur Leukocyte Esterase Negative, Urine RBC None, Urine WBC Occasional, Ur Squamous Epith Cells Occasional, Urine Bacteria Trace 05/12/25 04:52: WBC 18.4 H D, RBC 3.83 L, Hgb 11.3 L D, Hct 34.5 L, MCV 90.1, MCH 30.0, MCHC 33.3, RDW 12.1, Plt Count 418, MPV 8.9, Neut % (Auto) 89.1 H, Lymph % (Auto) 6.2 L, [place] % (Auto) 3.9, Eos % (Auto) 0.0 L, Baso % (Auto) 0.3, Neut # (Auto) 16.4 H, Lymph # (Auto) 1.1, [place] # (Auto) 0.7, Eos # (Auto) 0.0, Baso # (Auto) 0.1, Sodium 132 L, Potassium 3.7, Chloride 95 L, Carbon Dioxide 36 H, Anion Gap 4.7 L, BUN 18 H, Creatinine 0.60, Estimated Creat Clear 118, Estimated GFR 104, Est GFR ( Amer) 126, Glucose 119 H D, Calcium 9.2, Magnesium 1.9, Total Bilirubin 0.4, AST 38 H, ALT 18, Alkaline Phosphatase 60, Total Protein 7.0, Albumin 4.1 D, Globulin 2.9, Albumin/Globulin Ratio 1.4 Medical History: Medical History (Updated 05/11/25 @ 16:37 by Shaun Eastman MD) Oxygen dependent Emphysema lung HLD (hyperlipidemia) HTN (hypertension) COPD (chronic obstructive pulmonary disease) Assessment and Plan Assessment and plan all Dx Assessment and Plan for all problems:: Pharmacokinetic dosing service Objective: Age: 54 yo Serum creatinine: 0.6 mg/dL Height: 59.8 Inches Weight (kg): 69.8 Diagnosis: SEPSIS/PNEUMONIA Assessment: IBW (kg): 45.35 Dosing wt(kg): 69.8 Estimated Creatinine clearance (ml/min): 76.7 CRCL method: Cockcroft and Gault using ibw(default). Drug selected: Vancomycin Vd (liters): 48.9 (factor used: 0.7 L/kg) Tony (hr-1): 0.068 Half life (hrs): 10.19 CLvanco=?? 3.325 L/hr Recommended dose: 1250 mg Interval: 18 hrs Infusion time (hrs): 2.0 Predicted peak (mcg/mL): 33.9 Predicted trough (mcg/mL): 11.42 Total body weight is being used for vancomycin dosing. Recommendations: Give Vancomycin 1250 mg q 18 hrs with an expected Cpeak of 33.9 mcg/ml and an expected Ctrough of 11.42 mcg/ml AUC 0-24 /EMANUEL Data: EMANUEL 0.5 mcg/mL:?? AUC/EMANUEL:? 1002.5 EMANUEL 1.0 mcg/mL:?? AUC/EMANUEL:? 501.3 --------- EMANUEL 1.5 mcg/mL:?? AUC/EMANUEL:? 334.2 EMANUEL 2.0 mcg/mL:?? AUC/EMANUEL:? 250.6 Thank you for the consult
[2025-05-12] MEDS: METHYLPREDNISOLONE SOD SUCC 40MG VIAL 40 MG IV (08:54)
[2025-05-12] MEDS: IRBESARTAN 75MG TABLET 75 MG PO (08:55)
[2025-05-12] MEDS: ASPIRIN EC 81MG TABLET 81 MG PO (08:55)
[2025-05-12] MEDS: FLUTICASONE PROP 50MCG NASAL SPRAY 16GM 2 SPRAY NS (08:55)
[2025-05-12] MEDS: CITALOPRAM 20MG TABLET 20 MG PO (08:55)
--- NOTE | 2025-05-12 09:25 | P.PN_ITS ---
Subjective *Date: 05/12/25 *Time: 18:40 Interval history: Wearing BiPAP at night, doing better this morning. On 3 to 4 L which is her baseline. White count improving. No nausea or vomiting. Afebrile. Alert and oriented x 3. Medical Exam Vital signs and Labs for Last 24 Hours: Vital Signs Temp Pulse Resp BP Pulse Ox O2 Del Method O2 Flow Rate 05/12/25 09:00 100 H 26 H 125/61 95 Nasal Cannula 4 05/12/25 08:00 101 H 05/12/25 08:00 98.0 F 98 H 22 109/61 L 92 L Nasal Cannula 3 05/12/25 07:00 102 H 24 95 Nasal Cannula 4 05/12/25 07:00 130/71 05/12/25 06:58 Nasal Cannula 05/12/25 06:30 96 H 21 146/74 H 94 L 05/12/25 06:14 80 05/12/25 06:14 78 05/12/25 06:14 94 L BiPAP 05/12/25 06:14 05/12/25 06:00 92 H 21 95/45 L 95 BiPAP 05/12/25 05:24 BiPAP 05/12/25 05:01 93 H 23 126/67 94 L 05/12/25 04:30 98.6 F 80 18 109/59 L 95 05/12/25 04:00 86 22 89/44 L 94 L 05/12/25 04:00 80 05/12/25 03:30 89 21 104/54 L 95 05/12/25 03:00 95 H 22 94/51 L 93 L 05/12/25 03:00 BiPAP 05/12/25 02:44 83 05/12/25 02:44 86 05/12/25 02:44 05/12/25 02:30 86 18 112/63 93 L 05/12/25 02:00 84 18 108/59 L 95 05/12/25 01:30 85 22 98/55 L 95 05/12/25 01:01 87 18 104/53 L 96 05/12/25 01:00 BiPAP 05/12/25 00:30 84 20 113/70 94 L 05/12/25 00:16 92 L BiPAP 05/12/25 00:15 84 21 91 L 05/12/25 00:00 84 05/12/25 00:00 98.5 F 95 H 24 130/83 93 L Nasal Cannula 4 05/11/25 23:11 BiPAP 05/11/25 23:01 89 25 H 122/61 94 L 05/11/25 22:37 05/11/25 22:30 105 H 31 H 140/80 93 L 05/11/25 22:02 104 H 05/11/25 22:02 109 H 05/11/25 22:02 94 L Nasal Cannula 4 05/11/25 22:00 104 H 25 H 152/86 H 96 Nasal Cannula 4 05/11/25 21:22 Nasal Cannula 4 05/11/25 21:00 101 H 24 135/65 96 Nasal Cannula 4 05/11/25 20:25 90 L Nasal Cannula 4 05/11/25 20:00 100 H 05/11/25 20:00 98.1 F 104 H 24 128/64 92 L Nasal Cannula 4 05/11/25 19:30 94 H 23 140/79 92 L 05/11/25 19:20 95 H 05/11/25 19:20 98 H 05/11/25 19:20 05/11/25 19:00 98 H 28 H 131/65 94 L 05/11/25 18:46 BiPAP 05/11/25 18:30 89 21 122/68 95 05/11/25 18:23 05/11/25 18:00 93 H 22 134/67 96 Nasal Cannula 5 05/11/25 17:30 99 H 26 H 128/76 95 Nasal Cannula 5 05/11/25 17:00 95 H 23 152/77 H 92 L Nasal Cannula 5 05/11/25 17:00 Nasal Cannula 5 05/11/25 16:30 95 H 19 142/88 H 94 L Nasal Cannula 5 05/11/25 16:00 99.1 F 05/11/25 16:00 98 H 26 H 150/83 H 94 L Nasal Cannula 5 05/11/25 16:00 107 H 05/11/25 15:30 97 H 25 H 125/76 94 L Nasal Cannula 5 05/11/25 15:00 103 H 24 114/62 93 L Nasal Cannula 5 05/11/25 15:00 Nasal Cannula 5 05/11/25 14:30 111 H 28 H 142/90 H 93 L Nasal Cannula 5 05/11/25 14:09 106 H 23 137/96 H 94 L Nasal Cannula 5 05/11/25 14:09 102 H 05/11/25 14:09 107 H 05/11/25 13:30 94 H 24 115/66 94 L BiPAP 05/11/25 13:00 83 24 121/77 93 L BiPAP 05/11/25 13:00 BiPAP 05/11/25 12:30 95 H 25 H 109/75 L 93 L BiPAP 05/11/25 12:00 98.3 F 94 H 22 111/51 L 94 L BiPAP 05/11/25 12:00 94 H 05/11/25 11:30 100 H 22 105/69 L 94 L BiPAP 05/11/25 11:00 95 H 22 146/83 H 92 L BiPAP 05/11/25 11:00 BiPAP 05/11/25 10:31 107 H 30 H 129/82 91 L BiPAP 05/11/25 10:01 109 H 22 96/62 L 97 BiPAP 05/11/25 10:00 05/11/25 09:59 107 H 05/11/25 09:59 109 H 05/11/25 09:30 98.5 F 116 H 22 128/61 97 BiPAP FiO2 05/12/25 09:00 05/12/25 08:00 05/12/25 08:00 05/12/25 07:00 05/12/25 07:00 05/12/25 06:58 05/12/25 06:30 05/12/25 06:14 05/12/25 06:14 05/12/25 06:14 30 05/12/25 06:14 30 05/12/25 06:00 30 05/12/25 05:24 05/12/25 05:01 05/12/25 04:30 05/12/25 04:00 05/12/25 04:00 05/12/25 03:30 05/12/25 03:00 05/12/25 03:00 05/12/25 02:44 05/12/25 02:44 05/12/25 02:44 30 05/12/25 02:30 05/12/25 02:00 05/12/25 01:30 05/12/25 01:01 05/12/25 01:00 05/12/25 00:30 05/12/25 00:16 05/12/25 00:15 05/12/25 00:00 05/12/25 00:00 05/11/25 23:11 05/11/25 23:01 05/11/25 22:37 30 05/11/25 22:30 05/11/25 22:02 05/11/25 22:02 05/11/25 22:02 05/11/25 22:00 05/11/25 21:22 05/11/25 21:00 05/11/25 20:25 05/11/25 20:00 05/11/25 20:00 05/11/25 19:30 05/11/25 19:20 05/11/25 19:20 05/11/25 19:20 30 05/11/25 19:00 05/11/25 18:46 05/11/25 18:30 05/11/25 18:23 30 05/11/25 18:00 05/11/25 17:30 05/11/25 17:00 05/11/25 17:00 05/11/25 16:30 05/11/25 16:00 05/11/25 16:00 05/11/25 16:00 05/11/25 15:30 05/11/25 15:00 05/11/25 15:00 05/11/25 14:30 05/11/25 14:09 05/11/25 14:09 05/11/25 14:09 05/11/25 13:30 05/11/25 13:00 05/11/25 13:00 05/11/25 12:30 05/11/25 12:00 30 05/11/25 12:00 05/11/25 11:30 40 05/11/25 11:00 40 05/11/25 11:00 05/11/25 10:31 40 05/11/25 10:01 40 05/11/25 10:00 30 05/11/25 09:59 05/11/25 09:59 05/11/25 09:30 40 Intake and Output 05/11/25 05/12/25 05/12/25 23:59 07:59 15:59 Output Total 500 / 800 500 / 500 Balance -500 / 600 -500 / -500 Output: Output, Urine Amount 500 / 800 500 / 500 Other: Number of Unmeasured Voids 0 Number of Bowel Movements 1 Weight 69.8 kg Patient Weight 05/12/25 23:59 Weight 69.8 kg Laboratory Results - last 24 hr 05/11/25 09:25: Troponin I < 0.01 05/11/25 11:58: Troponin I < 0.01 05/11/25 12:00: VBG pH 7.40, VBG pCO2 52.7 H, VBG pO2 51.4 H, VBG HCO3 31.7 H, VBG Total CO2 33.3 H, VBG O2 Saturation 90.8 H, VBG Base Excess 6.8 H, VBG Lactic Acid 1.7 05/11/25 14:06: Urine Color Yellow, Urine Appearance Clear, Urine pH 5.5, Ur Specific [place] >= 1.030, Urine Protein Negative, Urine Glucose (UA) Negative, Urine Ketones Negative, Urine Blood Negative, Urine Nitrate Negative, Urine Bilirubin Negative, Urine Urobilinogen 0.2, Ur Leukocyte Esterase Negative, U rine RBC None, Urine WBC Occasional, Ur Squamous Epith Cells Occasional, Urine Bacteria Trace 05/12/25 04:52: WBC 18.4 H D, RBC 3.83 L, Hgb 11.3 L D, Hct 34.5 L, MCV 90.1, MCH 30.0, MCHC 33.3, RDW 12.1, Plt Count 418, MPV 8.9, Neut % (Auto) 89.1 H, L ymph % (Auto) 6.2 L, Whitman % (Auto) 3.9, Eos % (Auto) 0.0 L, Baso % (Auto) 0.3, Neut # (Auto) 16.4 H, Lymph # (Auto) 1.1, Whitman # (Auto) 0.7, Eos # (Auto) 0.0, Baso # (Auto) 0.1, Sodium 132 L, Potassium 3.7, Chloride 95 L, Carbon Dioxide 36 H, Anion Gap 4.7 L, BUN 18 H, Creatinine 0.60, Estimated Creat Clear 118, Estimated GFR 104, Est GFR ( Amer) 126, Glucose 119 H D, Calcium 9.2, Magnesium 1.9, Total Bilirubin 0.4, AST 38 H, ALT 18, Alkaline Phosphatase 60, Total Protein 7.0, Albumin 4.1 D, Globulin 2.9, Albumin/Globulin Ratio 1.4 I & O for Labs for Last 24 Hours: Intake & Output 05/09/25 05/10/25 05/11/25 05/12/25 23:59 23:59 23:59 23:59 Intake Total 1400 / 1400 Output Total 800 / 800 500 / 500 Balance 600 / 600 -500 / -500 Weight 69 kg 69.8 kg Microbiology Reports for the Last 24 Hours: Microbiology 05/11/25 06:15 Blood Blood Culture - Preliminary NO GROWTH AFTER 24 HOURS 05/11/25 06:10 Blood Blood Culture - Preliminary NO GROWTH AFTER 24 HOURS Constitutional: Present mild distress, obese, chronically ill appearing and cooperative Respiratory: Present prolonged expiratory phase, wheezes and crackles; Absent rhonchi Cardiac: Present Reg Rate and Rhythm GI: Present soft and normal bowel sounds; Absent distention or tenderness Extremities: Present normal inspection and full ROM Skin: Present intact; Absent erythema Neuro: Present Grossly Intact, alert, awake, oriented x 3 and moves all extremities Assessment and Plan *Assessment and plan (1) Acute respiratory failure with hypoxia and hypercarbia: Problem Comment: Acute on chronic, present on admission. Has acute hypercapnic failure superimposed on chronic hypoxic respiratory failure Status: Acute Category: Medical Code(s): J96.01 - Acute respiratory failure with hypoxia; J96.02 - Acute respiratory failure with hypercapnia (2) Pneumonia: Status: Acute Category: Medical Code(s): J18.9 - Pneumonia, unspecified organism (3) COPD (chronic obstructive pulmonary disease): Status: Acute Category: Medical Code(s): J44.9 - Chronic obstructive pulmonary disease, unspecified (4) HTN (hypertension): Status: Acute Category: Medical Code(s): I10 - Essential (primary) hypertension (5) Acute exacerbation of chronic obstructive airways disease: Status: Acute Category: Medical Code(s): J44.1 - Chronic obstructive pulmonary disease with (acute) exacerbation (6) Sepsis: Status: Acute Category: Medical Code(s): A41.9 - Sepsis, unspecified organism Plan Violeta Davidson is a 54-year-old female with a medical history of COPD on 4 L baseline, CAD s/p stent, hypertension, anxiety/depression who presents with progressive shortness of breath for at least a week. Has been trying to get better at home and just not improving. Not responding to her inhalers. Presented to the ER via EMS in respiratory distress. Meeting sepsis criteria with hypercapnic respiratory failure necessitating BiPAP. Discussed case with ER physician, request admission to the ICU for further management of her respiratory failure, pneumonia, sepsis. I agreed to admit for further care. With BiPAP. Doing better this morning. Wore it overnight. Blood gas normalized yesterday. Alert and oriented today. Appears to be doing better, pulmonology evaluating. Continues to require patient management, will de- escalate from ICU to stepdown level of care. Problems addressed as follows: # Severe sepsis #Acute on chronic hypercapnic, hypoxic respiratory failure #COPD exacerbation # Pneumonia ? Progressive shortness of breath for a week. VBG with initial pH 7.24, pCO2 91. Got worse after the first hour of wearing BiPAP. - Tachypneic, white count of 27, pneumonia on chest x-ray. In the setting of her acute on chronic respiratory failure, meeting severe sepsis criteria with endorgan dysfunction. - White count improved to 18.4. Hemoglobin 11.3. Kidney function stable and normal with BUN 18, creatinine 0.6; repeat CBC, CMP, magnesium ordered for the morning -Wean antibiotics to ceftriaxone 1 g daily and azithromycin 500 mg daily - Continue BiPAP while asleep. Responding well. Gases normalized. - Continue DuoNebs every 4 hours scheduled, Pulmicort twice daily - De-escalate antibiotics to prednisone 40 mg daily. - Comprehensive respiratory panel negative ? Continue home Roflumilast, hold Trelegy for now. - Nicotine patch daily for tobacco use disorder -- Per pulmonology's review of home device, patient currently on AutoPap at home of 6-16. Suboptimal compliance per pulmonology's review. Last used around mid February. Recommend compliance with CPAP. Follow-up in the outpatient setting. #Hypertension: Resume ARB therapy with irbesartan as formulary conversion at 75 mg daily. #Anxiety/depression: Resume home citalopram 20 mg. #CAD s/p stent 2018: Resume home aspirin, holding statin due to sepsis. Full code DVT prophylaxis: Lovenox 40 mg Regular diet
--- NOTE | 2025-05-12 09:26 | [facility].PTEV ---
Physical Therapy Evaluation Rehab PT IP Evaluation Start: 05/11/25 09:58 Freq: ONCE Status: Active Protocol: Document 05/12/25 09:21 ELIOT (Rec: 05/12/25 09:26 ELIOT [id number]) Subjective/History History History Per H&P: Ms. Davidson is a 54-year-old female with continued tobacco use disorder, COPD, chronic respiratory failure on 3 to 4 L oxygen at baseline. Presents to the ER with worsening shortness of breath over the past week. Denies chest pain, nausea, vomiting. States that she has had increased coughing and work of breathing. Not getting relief from breathing treatments and nebulizers at home. EMS called who brought patient to the ER. During transportation, she was initiated on Solu-Medrol and DuoNebs. By the time she arrived to the ER, blood gas showed hypercarbia and respiratory acidosis with white count of 27. Chest imaging positive for pneumonia. Initiated on BiPAP. Medicine consulted for admission and further management of respiratory failure and pneumonia. Patient to be admitted to the ICU. On my evaluation, significant other is at bedside. Patient unable to answer many questions due to BiPAP. She does awaken however and appears oriented to self and awake but falls asleep easily. In moderate distress. Subjective Subjective PLOF: IND with all mobility. SOB with longer ambulation tasks. HOME: Lives with her in a SS home with 2 RAMESH. ASSIST: unable to provide 24/7 as he works. [facility] How much help from another person do you currently need... Turning from your None back to your side while in a flat bed without using bedrails? Moving from lying on None back to sitting on the side of a flat bed without using bedrails? Moving to and from a None bed to a chair ( including a wheelchair)? Standing up from a None chair using your arms? (e.g., wheelchair, bedside chair) Walking in hospital None room? Climbing 3-5 steps A little with a railing? Mobility Score 23 Mobility Level [facility] Mobility 7 Walk 25 feet or more Mobility Calculator Rehab PT IP Eval Objective Appearance Patient Behavior Appropriate,Cooperative Patient Orientation Person,Place Difficulty following none instructions Speech Pattern Clear Ambulation Patient Able to Yes Ambulate Ambulation Observation IP General Gait No Deviations/Normal Pattern Observation Ambulation Distance 15 (feet) Ambulation Assistive None Device Ambulation Ability Supervision/Stand by Balance Ability to Arise Able, uses arms to help Sitting Balance Steady, safe Standing Balance Steady, wide stance Dynamic Sitting Good Balance Ability Dynamic Standing Good Balance Ability Transfers Sit to Stand Bed Supervision/Stand by Transfer Ability Rehab PT IP prob,goals,plan Problems Date of Evaluation: 05/12/25 PT IP Problems Transfers,Gait,Balance,Self care Rehab Potential Rehab Potential Good Equipment Needs Assistive Devices Rolling / Wheeled Walker Plan PT Intervention Plan Transfers,Gait,Balance,Self care,Therapeutic Exercise PT Plan Frequency Daily Duration Goals Met Discharge Goals Bed Transfer Ability Supervision/Stand by Sit to Stand Chair Supervision/Stand by Transfer Ability Ambulation Assistive Rolling Walker Device Ambulation Distance 50 (feet) Discharge Plan PT Discharge Plan Pt presents slightly below her baseline in ambulation and endurance. Pt able to ambulate in room but was limited by impaired endurance. PT recommending pt use RW during ambulation for safety and energy conservation. Pt would benefit from daily PT while at [facility] until goals of IND household level ambulation are achieved. PT recommending PT to address deficits upon d/c. Eval Complexity Eval Charge Codes 01677 - Moderate Complexity PHYSICIAN CERTIFICATION: I certify the specified therapy services for Marsha Davidson are required, authorized, and reviewed every 30 days.
--- NOTE | 2025-05-12 09:46 | EXP.PULM.CON ---
History of Present Illness History of present illness: Ms. Davidson is a 54-year-old female with reported history of tobacco abuse COPD chronic hypoxic respiratory failure baseline on 3 to 4 L nasal oxygen supplementation presented to ER with worsening respiratory distress and pulmonary was called for further evaluation and management. [facility] Disclaimer: The information contained in this section may have been updated after the patient was seen, as this information can be updated by other users. Medical History Oxygen dependent Emphysema lung HLD (hyperlipidemia) HTN (hypertension) COPD (chronic obstructive pulmonary disease) Surgical History Tubal ligation status Social History Smoking Status: Current some day smoker alcohol intake: never current occupational status: other Travel in the last 8 weeks?: None Have you lived/traveled outside [place] in past 30 days?: No Contact w/someone who lives/traveled outside US past 30 days?: No Exposure to someone with infectious disease in past 14 days?: No Do you have a fever (greater than 100.4 F or 38 C)?: No Have you tested positive for COVID-19?: No Exposed to someone with COVID-19 in past 14 days?: No Do you have a sore throat?: No Do you have a cough?: No Do you have any weakness?: No Do you have any diarrhea?: No Are you experiencing any unusual bleeding?: No Do you have any muscle aches/pain?: No Do you have any abdominal pain?: No Are you experiencing loss of taste or smell?: No Review of Systems Constitutional Constitutional: Reports anorexia, Reports body ache(s), Reports fatigue, Reports lethargy and Reports snoring Eyes Eyes: Denies eye discharge, Denies dry eyes, Denies irritation and Denies itchy eyes ENT Ears, Nose, Mouth, and Throat: Denies epistaxis, Denies facial pain, Denies lip swelling and Denies throat swelling *Cardiovascular Cardiovascular: Reports dyspnea and Reports dyspnea on exertion *Respiratory Respiratory: Reports change in phlegm color, Reports chest congestion, Reports cough, Reports dyspnea, Reports dyspnea on exertion, Reports excessive phlegm production, Denies hemoptysis, Denies pain on inspiration, Denies pain with cough, Reports snoring and Reports wheezing *Gastrointestinal Gastrointestinal: Denies abdominal pain, Denies belching and Denies cramping *Musculoskeletal Musculoskeletal: Reports back pain, Reports myalgias and Reports other (No small joint swelling or Pain) Psychiatric Psychiatric: Denies homicidal ideation and Denies suicidal ideation Endocrine Endocrine: Reports fatigue and Denies heat intolerance Hematologic/Lymphatic Hematologic/Lymphatic: Denies easy bleeding and Denies lymphadenopathy Allergic/Immunologic Allergic/Immunologic: Denies itchy eyes, Denies lip swelling, Denies throat swelling and Reports wheezing Pulmonology Exam Inpatient Vital signs and Labs for Last 24 Hours: Temp Pulse Resp BP Pulse Ox O2 Del Method O2 Flow Rate 98.0 F 101 H 26 H 125/61 95 Nasal Cannula 5 05/12/25 08:00 05/12/25 09:39 05/12/25 09:00 05/12/25 09:00 05/12/25 09:39 05/12/25 09:39 05/12/25 09:39 FiO2 30 05/12/25 06:14 Laboratory Results - last 24 hr 05/11/25 09:25: Troponin I < 0.01 05/11/25 11:58: Troponin I < 0.01 05/11/25 12:00: VBG pH 7.40, VBG pCO2 52.7 H, VBG pO2 51.4 H, VBG HCO3 31.7 H, VBG Total CO2 33.3 H, VBG O2 Saturation 90.8 H, VBG Base Excess 6.8 H, VBG Lactic Acid 1.7 05/11/25 14:06: Urine Color Yellow, Urine Appearance Clear, Urine pH 5.5, Ur Specific [place] >= 1.030, Urine Protein Negative, Urine Glucose (UA) Negative, Urine Ketones Negative, Urine Blood Negative, Urine Nitrate Negative, Urine Bilirubin Negative, Urine Urobilinogen 0.2, Ur Leukocyte Esterase Negative, Urine RBC None, Urine WBC Occasional, Ur Squamous Epith Cells Occasional, Urine Bacteria Trace 05/12/25 04:52: WBC 18.4 H D, RBC 3.83 L, Hgb 11.3 L D, Hct 34.5 L, MCV 90.1, MCH 30.0, MCHC 33.3, RDW 12.1, Plt Count 418, MPV 8.9, Neut % (Auto) 89.1 H, Lymph % (Auto) 6.2 L, [place] % (Auto) 3.9, Eos % (Auto) 0.0 L, Baso % (Auto) 0.3, Neut # (Auto) 16.4 H, Lymph # (Auto) 1.1, [place] # (Auto) 0.7, Eos # (Auto) 0.0, Baso # (Auto) 0.1, Sodium 132 L, Potassium 3.7, Chloride 95 L, Carbon Dioxide 36 H, Anion Gap 4.7 L, BUN 18 H, Creatinine 0.60, Estimated Creat Clear 118, Estimated GFR 104, Est GFR ( Amer) 126, Glucose 119 H D, Calcium 9.2, Magnesium 1.9, Total Bilirubin 0.4, AST 38 H, ALT 18, Alkaline Phosphatase 60, Total Protein 7.0, Albumin 4.1 D, Globulin 2.9, Albumin/Globulin Ratio 1.4 I & O for Labs for Last 24 Hours: Intake & Output 05/09/25 05/10/25 05/11/25 05/12/25 23:59 23:59 23:59 23:59 Intake Total 1400 / 1400 Output Total 800 / 800 500 / 500 Balance 600 / 600 -500 / -500 Weight 152 lb 1.903 oz 153 lb 14.122 oz Microbiology Reports for the Last 24 Hours: Microbiology 05/11/25 06:15 Blood Blood Culture - Preliminary NO GROWTH AFTER 24 HOURS 05/11/25 06:10 Blood Blood Culture - Preliminary NO GROWTH AFTER 24 HOURS Constitutional: Present moderate distress Head: Present normocephalic and atraumatic ENT: Present normal exam, normal oropharynx and mucous membranes moist Neck: Present normal inspection and full ROM Respiratory: Present prolonged expiratory phase, respiratory distress, rhonchi, distant breath sounds and able to speak in complete sentences Cardiac: Present S1/S2, Tachycardia and radial pulses present GI: Present soft and distention; Absent tenderness or guarding Rectal (female): Present deferred (female): Present deferred Skin: Present intact; Absent cyanosis or jaundice Neuro: Present alert, awake and oriented x 3 Extremities: Present normal inspection; Absent clubbing or cyanosis Psychiatric: Present normal affect and cooperative Meds Home Medications and Allergies Home Medications ?Medication ?Instructions ?Recorded ?Confirmed ?Type albuterol sulfate 90 mcg/actuation 2 puff inhalation QIDP PRN 07/14/24 05/11/25 History aerosol inhaler Shortness Of Breath Or Wheezing aspirin 81 mg tablet,delayed 81 mg PO DAILY 07/14/24 05/11/25 History release cetirizine 10 mg tablet (Zyrtec) 10 mg PO DAILY 07/14/24 05/11/25 History citalopram 20 mg tablet 20 mg PO DAILY 07/14/24 05/11/25 History fluticasone propionate 50 2 spray intranasal DAILY 07/14/24 05/11/25 History mcg/actuation nasal spray,suspension (Flonase Allergy Relief) losartan 50 mg tablet 50 mg PO DAILY 07/14/24 05/11/25 History simvastatin 20 mg tablet 20 mg PO HS 07/14/24 05/11/25 History triamterene 37.5 1 tab PO DAILY 07/14/24 05/11/25 History mg-hydrochlorothiazide 25 mg tablet fluticasone fur. 200 mcg-umeclid 1 ea inhalation DAILY 05/11/25 05/11/25 History 62.5 mcg-vilant 25 mcg inhalat.powder (Trelegy Ellipta) ipratropium 0.5 mg-albuterol 3 mg 3 ml inhalation QIDP PRN shortness 05/11/25 05/11/25 History (2.5 mg base)/3 mL nebulization of breath or wheezing soln roflumilast 500 mcg tablet 500 mcg PO DAILY 05/11/25 05/11/25 History New Prescriptions to Start Prescriptions: Allergies Allergy/AdvReac Type Severity Reaction Status Date / Time No Known Allergies Allergy Verified 07/14/24 10:02 Results Laboratory Findings 05/12/25 04:52 05/12/25 04:52 PT/INR, D-dimer D-Dimer 0.32 ug/mL (0.0-0.5) 05/11/25 05:47 Abnormal lab findings: Abnormal Labs 05/11/25 05/11/25 05/11/25 05:47 05:55 07:09 WBC 27.7 H* RBC Hgb Hct Plt Count 498 H Neut % (Auto) 81.5 H Lymph % (Auto) Eos % (Auto) Neut # (Auto) 22.6 H [place] # (Auto) 1.8 H Neutrophils % (Manual) 84 H VBG pH 7.24 L 7.19 L VBG pCO2 91.0 H 98.1 H VBG pO2 53.5 H VBG HCO3 37.9 H 36.5 H VBG Total CO2 40.7 H 39.6 H VBG O2 Saturation 84.6 H VBG Base Excess 10.5 H 8.3 H Sodium Potassium 3.4 L Chloride 89 L Carbon Dioxide 37 H Anion Gap 17.4 H BUN Glucose 152 H AST 39 H Total Protein 8.4 H Globulin 3.7 H 05/11/25 05/12/25 12:00 04:52 WBC 18.4 H D RBC 3.83 L Hgb 11.3 L D Hct 34.5 L Plt Count Neut % (Auto) 89.1 H Lymph % (Auto) 6.2 L Eos % (Auto) 0.0 L Neut # (Auto) 16.4 H [place] # (Auto) Neutrophils % (Manual) VBG pH VBG pCO2 52.7 H VBG pO2 51.4 H VBG HCO3 31.7 H VBG Total CO2 33.3 H VBG O2 Saturation 90.8 H VBG Base Excess 6.8 H Sodium 132 L Potassium Chloride 95 L Carbon Dioxide 36 H Anion Gap 4.7 L BUN 18 H Glucose 119 H D AST 38 H Total Protein Globulin Assessment and Plan *Assessment and plan (1) Acute on chronic respiratory failure with hypoxia and hypercapnia: Status: Acute Category: Medical Code(s): J96.21 - Acute and chronic respiratory failure with hypoxia; J96.22 - Acute and chronic respiratory failure with hypercapnia (2) COPD exacerbation: Status: Acute Category: Medical Code(s): J44.1 - Chronic obstructive pulmonary disease with (acute) exacerbation (3) Pneumonia: Status: Acute Category: Medical Code(s): J18.9 - Pneumonia, unspecified organism Plan Ms. Davidson is a 54-year-old female with reported history of tobacco abuse COPD chronic hypoxic respiratory failure baseline on 3 to 4 L nasal oxygen supplementation presented to ER with worsening respiratory distress and pulmonary was called for further evaluation and management. Afebrile. Hemodynamically stable. Neutrophilic predominant leukocytosis improving. Comprehensive respiratory viral PCR panel negative. Blood gas upon admission severe hypercarbic respiratory failure with a pH of 7.24 and pCO2 of 91.0 improved with subsequent blood gases venous showed 7.40 and 52.7. Chest x-ray upon admission concerning right lower lobe airspace disease. No other consolidative/airspace changes appreciated. Also concern for retrocardiac opacity. Currently being managed for COPD exacerbation and pneumonia, receiving vancomycin and ceftriaxone steroids and nebulization therapy. Plan: DuoNebs every 4 hours along with Pulmicort every 12 scheduled Antibiotics can be weaned to ceftriaxone Zithromycin pending final sputum culture results. Blood cultures no growth so far Prednisone 40 mg daily x 5 days Patient admits he had been using CPAP therapy at home, will obtain compliance report. She previously stated, tested for sleep apnea and was negative in 2017. # Thank you for involving pulmonary in this patient care. Will continue to follow.
--- NOTE | 2025-05-12 10:51 | HMH.PHAAMS2 ---
- Antimicrobial Stewardship Review culture & sensitivity review Stewardship interventions: culture & sensitivity review Comments: BLOOD CX NO GROWTH AT 24 HR, SPUTUM UNCOLLECTED. PATIENT ON ROCEPHIN/VANCOMYCIN EMPIRICALLY FOR PNEUMONIA/COPD EXACERBATION. WBC DOWN TODAY TO 18.4 K/mm3 FROM 27.7 K/mm3 YESTERDAY, AFEBRILE.
[2025-05-12] MEDS: VANCOMYCIN/WATER FOR INJ (PEG) 1.25 GM/250 ML PIGGYBACK IV (14:45)
[2025-05-12] MEDS: SODIUM CHLORIDE 3% 15ML NEB 3 ML IH (15:00)
[2025-05-12] MEDS: AZITHROMYCIN 500 MG in 0.9 % SODIUM CHLORIDE 250 ML 250 MG IV (19:59)
[2025-05-12] MEDS: ONDANSETRON 4MG/2ML VIAL 4 MG IV (20:32)
[2025-05-13] VITALS (22 sets, daily range): BP systolic 111–138; BP diastolic 64–86; PULSE 73–118; RESP 17–28; TEMP 36.5–37; O2SAT 83–99; BMI 30.2
[2025-05-13] MEDS: IPRATROPIUM/ALBUTEROL 3 ML NEB IH ×3 (02:09→09:17)
[2025-05-13] MEDS: BUDESONIDE 0.5MG/2ML NEB 0.5 MG IH (06:26)
[2025-05-13 07:42] LABS: Hematocrit 34.9 % (37.0-47.0); Hemoglobin 11.5 g/dL (12.2-16.2); Immature Granulocytes % 0.4 %; Mean Corpuscular HGB Conc 33.0 g/dL (31.8-35.4); Mean Corpuscular Hemoglobin 29.9 pg (27.0-31.2); Mean Corpuscular Volume 90.9 fl (81-99); Nucleated Red Blood Cells % 0 %; Platelet Count 438 K/mm3 (142-424); Red Blood Count 3.84 M/mm3 (4.20-5.40); Red Cell Distribution Width-SD 41.2 fL; White Blood Count 17.6 K/mm3 (4.8-10.8)
[2025-05-13 07:58] LABS: Albumin Level 3.9 g/dl (3.5-5.0); Chloride 97 mmol/L (98-107); Sodium 136 mmol/L (136-145)
[2025-05-13 07:59] LABS: Potassium 3.6 mmoL/L (3.5-5.1)
[2025-05-13] MEDS: CITALOPRAM 20MG TABLET 20 MG PO (08:00)
[2025-05-13] MEDS: ASPIRIN EC 81MG TABLET 81 MG PO (08:00)
[2025-05-13] MEDS: IRBESARTAN 75MG TABLET 75 MG PO (08:00)
[2025-05-13 08:01] LABS: Alanine Aminotransferase 22 U/L (12-78); Albumin/Globulin Ratio 1.3 (1.1-1.8); Alkaline Phosphatase 60 U/L (38-126); Anion Gap 3.6 mEq/L (5-15); Aspartate Amino Transferase 41 U/L (14-36); Bilirubin,Total 0.3 mg/dl (0.2-1.3); Blood Urea Nitrogen 25 mg/dl (7-17); Carbon Dioxide 39 mmol/L (22.0-30.0); Creatinine Clearance Estimated 79 mL/min (50-200); Creatinine,Serum 0.90 mg/dl (0.52-1.04); Estimated Glomerular Filt Rate 65 ml/min (>60); GFR (African American) 79 ML/MIN (>60); Globulin 2.9 g/dL (1.3-3.2); Total Protein,Serum 6.8 g/dl (6.3-8.2)
[2025-05-13] MEDS: FLUTICASONE PROP 50MCG NASAL SPRAY 16GM 2 SPRAY NS (08:01)
[2025-05-13 08:02] LABS: Calcium 8.9 mg/dl (8.4-10.2); Glucose 84 mg/dl (74-100); Magnesium 2.1 mg/dl (1.6-2.3)
[2025-05-13 08:33] LABS: Vancomycin,Trough 9.0 ug/mL (5.0-10.0)
--- NOTE | 2025-05-13 08:57 | CARE MANAGER ---
Patient will require the use of a rollator to safely ambulate around the house, in which a cane would not provide enough support. The seat is need for when she gets SOA r/t severe COPD.
--- NOTE | 2025-05-13 09:00 | PC.NURSE ---
PT AMBULATED IN THE ROOM ON CONTINUOUS PULSE OX. PT O2 SAT DROPPED TO 75% ON EXERTION. NOTIFIED
--- NOTE | 2025-05-13 09:21 | HMH.PHAAMS2 ---
- Antimicrobial Stewardship Review culture & sensitivity review Stewardship interventions: culture & sensitivity review (CURRENTLY ON ROCEPHIN AND AZITH, WBC DOWN FROM 27.7K TO 17.6K, AFEBRILE, BLD CX- NO GROWTH, SPUTUM CX PENDING.)
--- NOTE | 2025-05-13 09:36 | P.PN_ITS ---
Subjective *Date: 05/13/25 *Time: 10:48 Interval history: No acute respiratory vents overnight. Admits continued improvement in her respiratory symptoms. Pulmonology Exam Inpatient Vital signs and Labs for Last 24 Hours: Temp Pulse Resp BP Pulse Ox O2 Del Method O2 Flow Rate 97.9 F 111 H 17 115/66 91 L Nasal Cannula 4 05/13/25 08:00 05/13/25 09:16 05/13/25 08:00 05/13/25 08:00 05/13/25 08:00 05/13/25 08:00 05/13/25 08:00 FiO2 30 05/13/25 06:26 Laboratory Results - last 24 hr 05/13/25 07:03: WBC 17.6 H, RBC 3.84 L, Hgb 11.5 L, Hct 34.9 L, MCV 90.9, MCH 29.9, MCHC 33.0, RDW 12.4, Plt Count 438 H, MPV 9.0, Neut % (Auto) 76.6, Lymph % (Auto) 14.8, [place] % (Auto) 7.5, Eos % (Auto) 0.2, Baso % (Auto) 0.5, Neut # (Auto) 13.5 H, Lymph # (Auto) 2.6, [place] # (Auto) 1.3 H, Eos # (Auto) 0.0, Baso # (Auto) 0.1, Sodium 136, Potassium 3.6, Chloride 97 L, Carbon Dioxide 39 H, Anion Gap 3.6 L, BUN 25 H D, Creatinine 0.90 D, Estimated Creat Clear 79, Estimated GFR 65, Est GFR ( Amer) 79 D, Glucose 84, Calcium 8.9, Magnesium 2.1 D, Total Bilirubin 0.3, AST 41 H, ALT 22, Alkaline Phosphatase 60, Total Protein 6.8, Albumin 3.9, Globulin 2.9, Albumin/Globulin Ratio 1.3, Vancomycin Trough 9.0 Temp Pulse Resp BP Pulse Ox O2 Del Method O2 Flow Rate 98.0 F 101 H 26 H 125/61 95 Nasal Cannula 5 05/12/25 08:00 05/12/25 09:39 05/12/25 09:00 05/12/25 09:00 05/12/25 09:39 05/12/25 09:39 05/12/25 09:39 FiO2 30 05/12/25 06:14 Laboratory Results - last 24 hr 05/11/25 09:25: Troponin I < 0.01 05/11/25 11:58: Troponin I < 0.01 05/11/25 12:00: VBG pH 7.40, VBG pCO2 52.7 H, VBG pO2 51.4 H, VBG HCO3 31.7 H, VBG Total CO2 33.3 H, VBG O2 Saturation 90.8 H, VBG Base Excess 6.8 H, VBG Lactic Acid 1.7 05/11/25 14:06: Urine Color Yellow, Urine Appearance Clear, Urine pH 5.5, Ur Specific [place] >= 1.030, Urine Protein Negative, Urine Glucose (UA) Negative, Urine Ketones Negative, Urine Blood Negative, Urine Nitrate Negative, Urine Bilirubin Negative, Urine Urobilinogen 0.2, Ur Leukocyte Esterase Negative, Urine RBC None, Urine WBC Occasional, Ur Squamous Epith Cells Occasional, Urine Bacteria Trace 05/12/25 04:52: WBC 18.4 H D, RBC 3.83 L, Hgb 11.3 L D, Hct 34.5 L, MCV 90.1, MCH 30.0, MCHC 33.3, RDW 12.1, Plt Count 418, MPV 8.9, Neut % (Auto) 89.1 H, Lymph % (Auto) 6.2 L, [place] % (Auto) 3.9, Eos % (Auto) 0.0 L, Baso % (Auto) 0.3, Neut # (Auto) 16.4 H, Lymph # (Auto) 1.1, [place] # (Auto) 0.7, Eos # (Auto) 0.0, Baso # (Auto) 0.1, Sodium 132 L, Potassium 3.7, Chloride 95 L, Carbon Dioxide 36 H, Anion Gap 4.7 L, BUN 18 H, Creatinine 0.60, Estimated Creat Clear 118, Estimated GFR 104, Est GFR ( Amer) 126, Glucose 119 H D, Calcium 9.2, Magnesium 1.9, Total Bilirubin 0.4, AST 38 H, ALT 18, Alkaline Phosphatase 60, Total Protein 7.0, Albumin 4.1 D, Globulin 2.9, Albumin/Globulin Ratio 1.4 I & O for Labs for Last 24 Hours: Intake & Output 05/10/25 05/11/25 05/12/25 05/13/25 23:59 23:59 23:59 23:59 Intake Total 1400 / 1400 840 / 1080 440 / 440 Output Total 800 / 800 1300 / 1300 Balance 600 / 600 -460 / -220 440 / 440 Weight 152 lb 1.903 oz 153 lb 14.122 oz 154 lb 1.65 oz Intake & Output 05/09/25 05/10/25 05/11/25 05/12/25 23:59 23:59 23:59 23:59 Intake Total 1400 / 1400 Output Total 800 / 800 500 / 500 Balance 600 / 600 -500 / -500 Weight 152 lb 1.903 oz 153 lb 14.122 oz Microbiology Reports for the Last 24 Hours: Microbiology 05/11/25 06:15 Blood Blood Culture - Preliminary NO GROWTH AFTER 48 HOURS 05/11/25 06:10 Blood Blood Culture - Preliminary NO GROWTH AFTER 48 HOURS 05/12/25 18:04 Sputum - Expectorated Sputum Gram Stain - Final Microbiology 05/11/25 06:15 Blood Blood Culture - Preliminary NO GROWTH AFTER 24 HOURS 05/11/25 06:10 Blood Blood Culture - Preliminary NO GROWTH AFTER 24 HOURS Constitutional: Present moderate distress Head: Present normocephalic and atraumatic ENT: Present normal exam, normal oropharynx and mucous membranes moist Neck: Present normal inspection and full ROM Respiratory: Present prolonged expiratory phase, respiratory distress, rhonchi, distant breath sounds and able to speak in complete sentences Cardiac: Present S1/S2, Tachycardia and radial pulses present GI: Present soft and distention; Absent tenderness or guarding Rectal (female): Present deferred (female): Present deferred Skin: Present intact; Absent cyanosis or jaundice Neuro: Present alert, awake and oriented x 3 Extremities: Present normal inspection; Absent clubbing or cyanosis Psychiatric: Present normal affect and cooperative Assessment and Plan *Assessment and plan (1) Acute on chronic respiratory failure with hypoxia and hypercapnia: Status: Acute Category: Medical Code(s): J96.21 - Acute and chronic respiratory failure with hypoxia; J96.22 - Acute and chronic respiratory failure with hypercapnia (2) COPD exacerbation: Status: Acute Category: Medical Code(s): J44.1 - Chronic obstructive pulmonary disease with (acute) exacerbation (3) Pneumonia: Status: Acute Category: Medical Code(s): J18.9 - Pneumonia, unspecified organism Plan Ms. Davidson is a 54-year-old female with reported history of tobacco abuse COPD chronic hypoxic respiratory failure baseline on 3 to 4 L nasal oxygen supplementation presented to ER with worsening respiratory distress and pulmonary was called for further evaluation and management. Afebrile. Hemodynamically stable. Neutrophilic predominant leukocytosis improving. Comprehensive respiratory viral PCR panel negative. Blood gas upon admission severe hypercarbic respiratory failure with a pH of 7.24 and pCO2 of 91.0 improved with subsequent blood gases venous showed 7.40 and 52.7. Chest x-ray upon admission concerning right lower lobe airspace disease. No other consolidative/airspace changes appreciated. Also concern for retrocardiac opacity. Currently being managed for COPD exacerbation and pneumonia, receiving vancomycin and ceftriaxone steroids and nebulization therapy. Patient currently on auto CPAP at 11-11. Compliance report reviewed, suboptimal compliance with use of 29 days in the last 90 days with only 21 days or greater than 4 hours. Patient last used around mid February 2025. The noted hypercarbia is likely from her noncompliance at this point of time in the setting of her COPD. Will continue current CPAP therapy and follow in the clinic and further determine the need for BiPAP therapy. Interval update: No acute respiratory vents overnight. Pulm sputum culture few gram-negative rods. Stable leukocytosis. Less than 10 WBC. Chest x-ray from this morning stable with no new infiltrates. Plan: Trelegy 200 inhaler along with DuoNebs 4 times daily as needed next Continue ceftriaxone Zithromycin pending final sputum culture results. Antibiotics can be weaned to cefdinir to complete a total of 5-day course Prednisone 40 mg daily x 5 days Continue Daliresp daily, home medication Initiate Flonase and azelastine 2 sprays daily upon discharge. Continue current CPAP therapy at 11/11, Will follow as an outpatient basis to further determine the need for BiPAP therapy at this point looking in her recent noncompliance # Thank you for involving pulmonary in this patient care. Will follow patient in pulmonary clinic in 1 to 2 weeks. Patient also following with an outside full stack software developer and sleep physician at [facility].
--- NOTE | 2025-05-13 09:38 | XR_ITS ---
FINAL REPORT CLINICAL HISTORY: PNM COMPARISON: 05/11/2025 FINDINGS: A portable view of the chest was obtained. Cardiac and mediastinal silhouettes are within normal limits. There has been interval improvement in bibasilar opacities. There is likely underlying emphysema. Small pleural effusions are not excluded. There is no pneumothorax. IMPRESSION: Interval improvement bibasilar opacities. Reviewed, Interpreted and Dictated by Crystal Rey MD Transcribed by Indu Urrutia Authenticated and [facility]
[2025-05-13] MEDS: FLUTICASONE/UMECLIDIN/VILANTER 200/62.5/25MCG INHALER 1 PUFF IH (11:20)
--- NOTE | 2025-05-13 11:36 | SW/DCPLANNER ---
Spoke with patient regarding home health once she is medically stable and ready for discharge. Patient stated that she is interested in home health and that she does not have a preference in what agency i send her information to. I faxed patient's information to [facility] and they are able to accept patient. Magda Herzog
[2025-05-13] MEDS: FUROSEMIDE 40MG/4ML VIAL 40 MG IV (14:12)
--- NOTE | 2025-05-13 16:40 | P.PN_ITS ---
Subjective *Date: 05/13/25 *Time: 16:40 Interval history: Patient feels slightly better today, however desaturated to 75% with shortness of breath on baseline 4 L nasal cannula. High risk of decompensation. Discussed with pulmonology, will trial IV Lasix 40 mg today. Follow-up response. CXR today showed improvement in bibasilar opacities. However, decreased air movement on all lung velasco. Exam Data for Last 24 hours Vital signs and Labs for Last 24 Hours: Temp Pulse Resp BP Pulse Ox O2 Del Method O2 Flow Rate 97.7 F 110 H 20 125/69 91 L Nasal Cannula 4 05/13/25 16:00 05/13/25 16:00 05/13/25 16:00 05/13/25 16:00 05/13/25 16:00 05/13/25 16:00 05/13/25 16:00 FiO2 30 05/13/25 06:26 Laboratory Results - last 24 hr 05/13/25 07:03: WBC 17.6 H, RBC 3.84 L, Hgb 11.5 L, Hct 34.9 L, MCV 90.9, MCH 29.9, MCHC 33.0, RDW 12.4, Plt Count 438 H, MPV 9.0, Neut % (Auto) 76.6, Lymph % (Auto) 14.8, [place] % (Auto) 7.5, Eos % (Auto) 0.2, Baso % (Auto) 0.5, Neut # (Auto) 13.5 H, Lymph # (Auto) 2.6, [place] # (Auto) 1.3 H, Eos # (Auto) 0.0, Baso # (Auto) 0.1, Sodium 136, Potassium 3.6, Chloride 97 L, Carbon Dioxide 39 H, Anion Gap 3.6 L, BUN 25 H D, Creatinine 0.90 D, Estimated Creat Clear 79, Estimated GFR 65, Est GFR ( Amer) 79 D, Glucose 84, Calcium 8.9, Magnesium 2.1 D, Total Bilirubin 0.3, AST 41 H, ALT 22, Alkaline Phosphatase 60, Total Protein 6.8, Albumin 3.9, Globulin 2.9, Albumin/Globulin Ratio 1.3, Vancomycin Trough 9.0 I & O for Last 24 hours: Intake & Output 05/10/25 05/11/25 05/12/25/16/25 23:59 23:59 23:59 23:59 Intake Total 1400 / 1400 840 / 1080 780 / 780 Output Total 800 / 800 1300 / 1300 400 / 400 Balance 600 / 600 -460 / -220 380 / 380 Weight 69 kg 69.8 kg 69.9 kg Microbiology Reports for the Last 24 Hours: Microbiology 05/11/25 06:15 Blood Blood Culture - Preliminary NO GROWTH AFTER 48 HOURS 05/11/25 06:10 Blood Blood Culture - Preliminary NO GROWTH AFTER 48 HOURS 05/12/25 18:04 Sputum - Expectorated Sputum Gram Stain - Final Constitutional Constitutional: no acute distress, obese and chronically ill appearing *Routine HEENT Exam Head: Present normocephalic Eye: Present EOMI and PERRL ENT: Present mucous membranes moist *Routine Neck Exam Neck: Present supple; Absent lymphadenopathy *Routine Respiratory Exam Respiratory: Present distant breath sounds and diminished air movement; Absent CTA bilaterally *Routine Cardiovascular Exam Cardiovascular: Present RRR *Routine Abdominal Exam Abdominal: Present soft and normoactive bowel sounds; Absent tenderness *Routine Extremities Exam Extremities: Absent cyanosis, clubbing or edema *Routine Skin Exam Skin: Present warm; Absent rash *Routine Neurological Exam Neurological: Present alert and oriented X3 Assessment and Plan *Assessment and plan (1) Acute respiratory failure with hypoxia and hypercarbia: Problem Comment: Acute on chronic, present on admission. Has acute hypercapnic failure superimposed on chronic hypoxic respiratory failure Status: Acute Category: Medical Code(s): J96.01 - Acute respiratory failure with hypoxia; J96.02 - Acute respiratory failure with hypercapnia (2) Pneumonia: Status: Acute Category: Medical Code(s): J18.9 - Pneumonia, unspecified organism (3) COPD (chronic obstructive pulmonary disease): Status: Acute Category: Medical Code(s): J44.9 - Chronic obstructive pulmonary disease, unspecified (4) HTN (hypertension): Status: Acute Category: Medical Code(s): I10 - Essential (primary) hypertension (5) Acute exacerbation of chronic obstructive airways disease: Status: Acute Category: Medical Code(s): J44.1 - Chronic obstructive pulmonary disease with (acute) exacerbation (6) Sepsis: Status: Acute Category: Medical Code(s): A41.9 - Sepsis, unspecified organism Plan Violeta Davidson is a 54-year-old female with a medical history of COPD on 4 L baseline, CAD s/p stent, hypertension, anxiety/depression who presents with progressive shortness of breath for at least a week. Has been trying to get better at home and just not improving. Not responding to her inhalers. Presented to the ER via EMS in respiratory distress. Admitted for sepsis secondary to CAP, COPD exacerbation requiring BiPAP. #Sepsis #Acute on chronic hypercapnic, hypoxic respiratory failure #COPD exacerbation #Community-acquired pneumonia ? Progressive shortness of breath for a week. VBG with initial pH 7.24, pCO2 91. Got worse after the first hour of wearing BiPAP. ? Patient feels slightly better today, however desaturated to 75% with shortness of breath on baseline 4 L nasal cannula. High risk of decompensation. ? Discussed with pulmonology, will trial IV Lasix 40 mg today. Follow-up response. CXR today showed improvement in bibasilar opacities. However, decreased air movement on all lung velasco. ? Continue ceftriaxone 1 g daily, azithromycin 500 mg daily. - Continue CPAP while asleep. Responding well. Gases normalized. ? Pulmonology started Trelegy 200 today. DuoNebs as needed. Recommended starting Flonase, azelastine on discharge. - Continue prednisone 40 mg daily. - Comprehensive respiratory panel negative ? Continue home Roflumilast, Trelegy. - Nicotine patch daily for tobacco use disorder -- Per pulmonology's review of home device, patient currently on AutoPap at home of 6-16. Suboptimal compliance per pulmonology's review. Last used around mid February. Recommend compliance with CPAP. Follow-up in the outpatient setting. #Hypertension: Resume ARB therapy with irbesartan as formulary conversion at 75 mg daily. #Anxiety/depression: Resume home citalopram 20 mg. #CAD s/p stent 2018: Resume home aspirin, holding statin due to sepsis. Full code DVT prophylaxis: Lovenox 40 mg Regular diet
[2025-05-13] MEDS: AZITHROMYCIN 500 MG in 0.9 % SODIUM CHLORIDE 250 ML 250 MG IV (18:47)
[2025-05-14] VITALS (10 sets, daily range): BP systolic 109–129; BP diastolic 55–71; PULSE 72–103; RESP 16–25; TEMP 36.6–37.1; O2SAT 92–98; BMI 30.2
[2025-05-14] MEDS: FLUTICASONE/UMECLIDIN/VILANTER 200/62.5/25MCG INHALER 1 PUFF IH (06:15)
[2025-05-14 06:46] LABS: Hematocrit 36.1 % (37.0-47.0); Hemoglobin 11.7 g/dL (12.2-16.2); Immature Granulocytes % 0.4 %; Mean Corpuscular HGB Conc 32.4 g/dL (31.8-35.4); Mean Corpuscular Hemoglobin 29.6 pg (27.0-31.2); Mean Corpuscular Volume 91.4 fl (81-99); Nucleated Red Blood Cells % 0 %; Platelet Count 442 K/mm3 (142-424); Red Blood Count 3.95 M/mm3 (4.20-5.40); Red Cell Distribution Width-SD 41.1 fL; White Blood Count 15.4 K/mm3 (4.8-10.8)
[2025-05-14 07:05] LABS: Chloride 93 mmol/L (98-107)
[2025-05-14 07:06] LABS: Albumin Level 4.0 g/dl (3.5-5.0); Potassium 3.3 mmoL/L (3.5-5.1); Sodium 135 mmol/L (136-145)
[2025-05-14 07:08] LABS: Blood Urea Nitrogen 25 mg/dl (7-17); Creatinine Clearance Estimated 89 mL/min (50-200); Creatinine,Serum 0.80 mg/dl (0.52-1.04); Estimated Glomerular Filt Rate 75 ml/min (>60); GFR (African American) 90 ML/MIN (>60)
[2025-05-14 07:09] LABS: Alanine Aminotransferase 26 U/L (12-78); Albumin/Globulin Ratio 1.4 (1.1-1.8); Alkaline Phosphatase 60 U/L (38-126); Aspartate Amino Transferase 48 U/L (14-36); Bilirubin,Total 0.3 mg/dl (0.2-1.3); Calcium 9.0 mg/dl (8.4-10.2); Globulin 2.9 g/dL (1.3-3.2); Glucose 80 mg/dl (74-100); Total Protein,Serum 6.9 g/dl (6.3-8.2)
[2025-05-14 07:29] LABS: Anion Gap 4.3 mEq/L (5-15); Carbon Dioxide 41 mmol/L (22.0-30.0)
[2025-05-14] MEDS: CITALOPRAM 20MG TABLET 20 MG PO (08:47)
[2025-05-14] MEDS: ASPIRIN EC 81MG TABLET 81 MG PO (08:48)
[2025-05-14] MEDS: IRBESARTAN 75MG TABLET 75 MG PO (08:49)
[2025-05-14] MEDS: NICOTINE 21MG/24HR PATCH 21 MG TD (08:51)
[2025-05-14] MEDS: FLUTICASONE PROP 50MCG NASAL SPRAY 16GM 2 SPRAY NS (09:00)
--- NOTE | 2025-05-14 09:28 | HMH.PHAAMS2 ---
- Antimicrobial Stewardship Review culture & sensitivity review Stewardship interventions: culture & sensitivity review (CURRENTLY ON AZITH AND ROCEPHIN, WBC DOWN FROM 27.7K TO 15.4K, AFEBRILE, BLD CX NEGATIVE, SPUTUM CX PENDING.)
--- NOTE | 2025-05-14 09:31 | HMH.PHAAMS2 ---
- Antimicrobial Stewardship Review culture & sensitivity review Stewardship interventions: 48 hour timeout review (CURRENTLY ON AZITH AND ROCEPHIN, WBC DOWN FROM 27.7K TO 15.4K, AFEBRILE, BLD CX NEGATIVE, SPUTUM CX PENDING.)
--- NOTE | 2025-05-14 11:37 | EXP.DC.SUM ---
General Admission date:: 05/11/25 HPI HPI HPI: Ms. Davidson is a 54-year-old female with continued tobacco use disorder, COPD, chronic respiratory failure on 3 to 4 L oxygen at baseline. Presents to the ER with worsening shortness of breath over the past week. Denies chest pain, nausea, vomiting. States that she has had increased coughing and work of breathing. Not getting relief from breathing treatments and nebulizers at home. EMS called who brought patient to the ER. During transportation, she was initiated on Solu-Medrol and DuoNebs. By the time she arrived to the ER, blood gas showed hypercarbia and respiratory acidosis with white count of 27. Chest imaging positive for pneumonia. Initiated on BiPAP. Medicine consulted for admission and further management of respiratory failure and pneumonia. Patient to be admitted to the ICU. On my evaluation, significant other is at bedside. Patient unable to answer many questions due to BiPAP. She does awaken however and appears oriented to self and awake but falls asleep easily. In moderate distress. Hospital Course Hospital Course Hospital Course: Violeta Davidson is a 54-year-old female with a medical history of COPD on 4 L baseline, CAD s/p stent, hypertension, anxiety/depression who presents with progressive shortness of breath for at least a week. Has been trying to get better at home and just not improving. Not responding to her inhalers. Presented to the ER via EMS in respiratory distress. Admitted for sepsis secondary to CAP, COPD exacerbation requiring BiPAP. #Sepsis #Acute on chronic hypercapnic, hypoxic respiratory failure #COPD exacerbation #Community-acquired pneumonia ? Presented with progressive shortness of breath for a week. VBG with initial pH 7.24, pCO2 91. Got worse after the first hour of wearing BiPAP. Chronic baseline 3 to 4 L nasal cannula. ? CTA suggestive of left upper lobe pneumonia. Met sepsis criteria with leukocytosis, tachycardia. Full respiratory panel normal. ? Overall, patient gradually improved with BiPAP nightly, DuoNebs, Pulmicort, prednisone, ceftriaxone, azithromycin. ? Patient does have baseline dyspnea on exertion with desaturations to mid 80s, similar to day of discharge. However, this did improve on day of discharge. ? Per pulmonology's review of home device, patient currently on AutoPap at home of 6-16. Suboptimal compliance per pulmonology's review. Last used around mid February. Recommend compliance with CPAP. Pulmonology does not recommend BiPAP on discharge at this time, just adherence to CPAP therapy. ? Discussed with pulmonology, discharged with cefdinir 300 mg twice daily and prednisone 40 mg for 1 more day. ? Continue home Trelegy 200, Roflumilast, DuoNebs as needed. ? Follow-up with pulmonology within 1 week. ? Continue home Roflumilast, Trelegy. #Hypertension: Continue home losartan 50 mg, triamterene, hydrochlorothiazide. #Anxiety/depression: Resume home citalopram 20 mg. #CAD s/p stent 2018: Continue home aspirin, statin. #Obesity: BMI 30, complicates all aspects of care. Total time spent on discharge: 33 minutes on chart review, counseling, documentation, and direct care with patient. Exam Data for Last 24 hours Vital signs and Labs for Last 24 Hours: Temp Pulse Resp BP Pulse Ox O2 Del Method O2 Flow Rate 98.7 F 96 H 22 129/62 92 L Nasal Cannula 4 05/14/25 08:00 05/14/25 08:00 05/14/25 08:00 05/14/25 08:00 05/14/25 08:00 05/14/25 09:00 05/14/25 09:00 FiO2 30 05/14/25 01:10 Laboratory Results - last 24 hr 05/14/25 06:24: WBC 15.4 H, RBC 3.95 L, Hgb 11.7 L, Hct 36.1 L, MCV 91.4, MCH 29.6, MCHC 32.4, RDW 12.2, Plt Count 442 H, MPV 8.8, Neut % (Auto) 64.6, Lymph % (Auto) 25.0, [place] % (Auto) 8.7, Eos % (Auto) 0.8, Baso % (Auto) 0.5, Neut # (Auto) 9.9 H, Lymph # (Auto) 3.9, [place] # (Auto) 1.3 H, Eos # (Auto) 0.1, Baso # (Auto) 0.1, Sodium 135 L, Potassium 3.3 L, Chloride 93 L, Carbon Dioxide 41 H*, Anion Gap 4.3 L, BUN 25 H, Creatinine 0.80, Estimated Creat Clear 89, Estimated GFR 75, Est GFR ( Amer) 90, Glucose 80, Calcium 9.0, Total Bilirubin 0.3, AST 48 H, ALT 26, Alkaline Phosphatase 60, Total Protein 6.9, Albumin 4.0, Globulin 2.9, Albumin/Globulin Ratio 1.4 I & O for Last 24 hours: Intake & Output 05/11/25 05/12/25 05/13/25 05/14/25 23:59 23:59 23:59 23:59 Intake Total 1400 / 1400 840 / 1080 1270 / 1270 580 / 580 Output Total 800 / 800 1300 / 1300 700 / 700 600 / 600 Balance 600 / 600 -460 / -220 570 / 570 -20 / -20 Weight 69 kg 69.8 kg 69.9 kg 69.9 kg Constitutional Constitutional: no acute distress, obese and chronically ill appearing *Routine HEENT Exam Head: Present normocephalic Eye: Present EOMI and PERRL ENT: Present mucous membranes moist *Routine Neck Exam Neck: Present supple; Absent lymphadenopathy *Routine Respiratory Exam Respiratory: Present distant breath sounds and diminished air movement; Absent CTA bilaterally *Routine Cardiovascular Exam Cardiovascular: Present RRR *Routine Abdominal Exam Abdominal: Present soft and normoactive bowel sounds; Absent tenderness *Routine Extremities Exam Extremities: Absent cyanosis, clubbing or edema *Routine Skin Exam Skin: Present warm; Absent rash *Routine Neurological Exam Neurological: Present alert and oriented X3 Results Data Completed and Pending Labs on day of discharge: Labs from last 24 hours 05/14/25 06:24 WBC 15.4 H RBC 3.95 L Hgb 11.7 L Hct 36.1 L MCV 91.4 MCH 29.6 MCHC 32.4 RDW 12.2 Plt Count 442 H MPV 8.8 Neut % (Auto) 64.6 Lymph % (Auto) 25.0 [place] % (Auto) 8.7 Eos % (Auto) 0.8 Baso % (Auto) 0.5 Neut # (Auto) 9.9 H Lymph # (Auto) 3.9 [place] # (Auto) 1.3 H Eos # (Auto) 0.1 Baso # (Auto) 0.1 Sodium 135 L Potassium 3.3 L Chloride 93 L Carbon Dioxide 41 H* Anion Gap 4.3 L BUN 25 H Creatinine 0.80 Estimated Creat Clear 89 Estimated GFR 75 Est GFR ( Amer) 90 Glucose 80 Calcium 9.0 Total Bilirubin 0.3 AST 48 H ALT 26 Alkaline Phosphatase 60 Total Protein 6.9 Albumin 4.0 Globulin 2.9 Albumin/Globulin Ratio 1.4 Preliminary micro results at discharge 05/11/25 06:15 Blood Culture - Preliminary Blood NO GROWTH AFTER 48 HOURS 05/11/25 06:10 Blood Culture - Preliminary Blood NO GROWTH AFTER 48 HOURS DS: Diagnosis Discharge Diagnosis (1) Acute respiratory failure with hypoxia and hypercarbia: Status: Acute Code(s): J96.01 - Acute respiratory failure with hypoxia; J96.02 - Acute respiratory failure with hypercapnia Problem details: Acute on chronic, present on admission. Has acute hypercapnic failure superimposed on chronic hypoxic respiratory failure (2) Pneumonia: Status: Acute Code(s): J18.9 - Pneumonia, unspecified organism (3) COPD (chronic obstructive pulmonary disease): Status: Acute Code(s): J44.9 - Chronic obstructive pulmonary disease, unspecified (4) HTN (hypertension): Status: Acute Code(s): I10 - Essential (primary) hypertension (5) Acute exacerbation of chronic obstructive airways disease: Status: Acute Code(s): J44.1 - Chronic obstructive pulmonary disease with (acute) exacerbation (6) Sepsis: Status: Acute Code(s): A41.9 - Sepsis, unspecified organism Meds Home Medications and Allergies Home Medications ?Medication ?Instructions ?Recorded ?Confirmed ?Type albuterol sulfate 90 mcg/actuation 2 puff inhalation QIDP PRN 07/14/24 05/11/25 History aerosol inhaler Shortness Of Breath Or Wheezing aspirin 81 mg tablet,delayed 81 mg PO DAILY 07/14/24 05/11/25 History release cetirizine 10 mg tablet (Zyrtec) 10 mg PO DAILY 07/14/24 05/11/25 History citalopram 20 mg tablet 20 mg PO DAILY 07/14/24 05/11/25 History fluticasone propionate 50 2 spray intranasal DAILY 07/14/24 05/11/25 History mcg/actuation nasal spray,suspension (Flonase Allergy Relief) losartan 50 mg tablet 50 mg PO DAILY 07/14/24 05/11/25 History simvastatin 20 mg tablet 20 mg PO HS 07/14/24 05/11/25 History triamterene 37.5 1 tab PO DAILY 07/14/24 05/11/25 History mg-hydrochlorothiazide 25 mg tablet fluticasone fur. 200 mcg-umeclid 1 ea inhalation DAILY 05/11/25 05/11/25 History 62.5 mcg-vilant 25 mcg inhalat.powder (Trelegy Ellipta) roflumilast 500 mcg tablet 500 mcg PO DAILY 05/11/25 05/11/25 History diphenhydramine HCl 25 mg capsule 25 mg PO HS PRN sleep/itching 05/12/25 05/12/25 History cefdinir 300 mg capsule 300 mg PO BID 1 day #2 caps 05/14/25 Rx ipratropium 0.5 mg-albuterol 3 mg 3 ml inhalation QIDP PRN shortness 05/14/25 Rx (2.5 mg base)/3 mL nebulization of breath or wheezing #180 mL soln prednisone 20 mg tablet 40 mg (2 x 20 mg) PO DAILY 1 day 05/14/25 Rx #2 tabs New Prescriptions to Start Prescriptions: cefdinir Jules Mendoza ipratropium-albuterol Kelly,Jules prednisone Jules Mendoza Allergies Allergy/AdvReac Type Severity Reaction Status Date / Time No Known Allergies Allergy Verified 07/14/24 10:02 Discharge Plan Disposition Patient Disposition: Home Health Service Condition: Fair Discharge Order Discharge Orders: Discharge Order (Routine); Ordered 05/14/25 Ordered By: Jules Mendoza Follow up Plan Follow up with: Precious Hernandez [Primary Care Provider, Medical] - 05/19/25 9:15 am Angelo Martínez MD [Physician, Pulmonology] - 06/03/25 1:00 pm Prescriptions/Medication Reconciliation: New prednisone 20 mg Tablet 40 mg PO DAILY 1 Days Qty: 2 0RF cefdinir 300 mg capsule 300 mg PO BID 1 Days Qty: 2 0RF Continued losartan 50 mg tablet 50 mg PO DAILY Patient Comments: TAKE 1 TABLET BY MOUTH ONCE DAILY. citalopram 20 mg tablet 20 mg PO DAILY Patient Comments: TAKE 1 TABLET BY MOUTH ONCE DAILY. simvastatin 20 mg tablet 20 mg PO HS Patient Comments: TAKE 1 TABLET BY MOUTH ONCE DAILY. triamterene-hydrochlorothiazid 37.5-25 mg tablet 1 tab PO DAILY Patient Comments: TAKE 1 TABLET BY MOUTH ONCE DAILY. albuterol sulfate 90 mcg/actuation HFA aerosol inhaler 2 puff INHALATION QIDP PRN (Reason: Shortness Of Breath Or Wheezing) Patient Comments: INHALE 2 PUFFS BY MOUTH 4 TIMES A DAILY NEEDED. cetirizine [Zyrtec] 10 mg Tablet 10 mg PO DAILY aspirin 81 mg Tablet,Delayed Release (Dr/Ec) 81 mg PO DAILY fluticasone propionate [Flonase Allergy Relief] 50 mcg/actuation [place],Suspension 2 spray INTRANASAL DAILY roflumilast 500 mcg tablet 500 mcg PO DAILY Trelegy Ellipta 200-62.5-25 mcg blister with device 1 ea inhalation DAILY diphenhydramine HCl 25 mg Capsule 25 mg PO HS PRN (Reason: sleep/itching) Changed ipratropium-albuterol 0.5 mg-3 mg(2.5 mg base)/3 mL solution for nebulization 3 ml INHALATION QIDP PRN (Reason: shortness of breath or wheezing) Qty: 180 2RF Problem Reconciliation Problems Reviewed?: Yes Patient Discharge Instructions Print Language: Colombian Providers Primary Care Provider: Precious Hernandez Admit Provider: Shaun Wolfe Attending Provider: Shaun Wolfe
[2025-05-14] MEDS: FUROSEMIDE 40MG/4ML VIAL 40 MG IV (11:44)
--- NOTE | 2025-05-14 11:57 | PC.NURSE ---
Pharmacy reviewing medications w/ pt @ bedside.
--- NOTE | 2025-05-15 10:28 | SW/DCPLANNER ---
Spoke with patient on the phone. Patient stated that she is doing well. Patient stated that she is aware of her upcoming appointment. Patient stated that she was able to get her new medicine [facility] from [facility]. Patient stated that she has no concerns or questions at this time. Magda Herzog
== END 2025-05-14 13:38 | disposition home health service (06) | DRG 871 ==
LOC: ER 07:23 → ICU 08:25
PROVIDERS: Emergency Medicine; Internal Medicine Pulmonary Disease; Admitting Provider Internal Medicine Adolescent Medicine; Emergency Provider Student in an Organized Health Care Education/Training Program; PCP Internal Medicine; Visit Provider Internal Medicine Adolescent Medicine
DX: A41.9 Sepsis, unspecified organism (principal); J18.9 Pneumonia, unspecified organism; J96.21 Acute and chronic respiratory failure with hypoxia; J96.22 Acute and chronic respiratory failure with hypercapnia; J44.0 Chronic obstructive pulmonary disease with (acute) lower respiratory infection; J44.1 Chronic obstructive pulmonary disease with (acute) exacerbation; E87.29 Other acidosis; F32.A Depression, unspecified; F41.9 Anxiety disorder, unspecified; I25.10 Atherosclerotic heart disease of native coronary artery without angina pectoris; Z95.5 Presence of coronary angioplasty implant and graft; E66.9 Obesity, unspecified; Z68.30 Body mass index [BMI] 30.0-30.9, adult; I10 Essential (primary) hypertension; Z79.82 Long term (current) use of aspirin; Z79.52 Long term (current) use of systemic steroids; Z99.81 Dependence on supplemental oxygen; F17.200 Nicotine dependence, unspecified, uncomplicated; E78.5 Hyperlipidemia, unspecified; R65.20 Severe sepsis without septic shock; Z91.199 Patient's noncompliance with other medical treatment and regimen due to unspecified reason
CPT/HCPCS: 0223U; 36415; 71045; 80053; 80202; 81001; 82803; 83735; 83880; 84484; 85007; 85025; 85378; 87040; 87070; 87205; 89220; 93005; 94640; 94660; 94761; 97162; 97530; 99285; J0456; J0696; J1650; J1938; J2060; J2405; J2919; J3375; J3480; J7030; J7050